=== PATIENT | male | born 1945 | race Caucasian/White ===

== ENCOUNTER 2016-12-08 04:39 | Emergency (ER) | payer MEDICARE, BC ==
--- NOTE | 2016-12-08 05:08 | ED ---
Martha Marley Edward, scribed for Camden Oneil MD on 12/08/16 at 0442 . Back Pain - HPI Summary HPI Summary: 71 y/o male presents to ED c/o L side back and L hip pain s/p fall, hitting his L side of back and hip on his arm chair. The fall occurred at 03:30 this morning. Pain intensity is at a 6/10 at triage. Pain is aggravated with deep breaths. Patient also hit his head but reports no LOC. Patient uses a cane and has trouble on his feet before the fall. Patient also fell getting out of his car two nights ago. PMHx DM, HTN. - History of Current Complaint Stated Complaint: FALL/BACK AND LEFT HIP PAIN Hx Obtained From: Patient Onset/Duration: Started Hours Ago, Still Present Back Pain Location: Is Discrete @ - L side and hip Severity Currently: Moderate Pain Intensity: 6 Pain Scale Used: 0-10 Numeric - Allergies/Home Medications Allergies/Adverse Reactions: Allergies Allergy/AdvReac Type Severity Reaction Status Date / Time Penicillins Allergy Unknown Verified 01/24/15 16:46 Reaction Details Lisinopril AdvReac Coughing Verified 01/24/15 16:46 PMH/Surg Hx/FS Hx/Imm Hx Previously Healthy: No Endocrine/Hematology History: Reports: Hx Diabetes Denies: Hx Thyroid Disease Cardiovascular History: Reports: Hx Hypertension - CONTROLLED WITH MEDS Denies: Hx Pacemaker/ICD Respiratory History: Denies: Hx Asthma - child, Hx Chronic Obstructive Pulmonary Disease (COPD) GI History: Denies: Hx Ulcer History: Denies: Hx Dialysis, Hx Renal Disease Sensory History: Denies: Hx Hearing Aid Neurological History: Reports: Other Neuro Impairments/Disorders - Mild Cognitive Impairment Psychiatric History: Denies: Hx Panic Disorder - Surgical History Surgery Procedure, Year, and Place: 2000 DETACHED RETINA AT [facility] - Immunization History Date of Tetanus Vaccine: w/in last 5 yrs per pt Infectious Disease History: Denies: Hx Clostridium Difficile, Hx Hepatitis, Hx Human Immunodeficiency Virus (HIV), Hx of Known/Suspected MRSA, Hx Shingles, Hx Tuberculosis, Hx Known/ Suspected VRE, Hx Known/Suspected VRSA, History Other Infectious Disease - Social History Occupation: Retired Lives: With Family Alcohol Use: Rare Hx Substance Use: No Substance Use Type: Reports: None Hx Tobacco Use: No Smoking Status (MU): Never Smoked Tobacco Review of Systems Constitutional: Negative Eyes: Negative ENT: Negative Cardiovascular: Negative Respiratory: Negative Gastrointestinal: Negative Genitourinary: Negative Positive: Arthralgia - L hip pain, Myalgia - back pain Skin: Negative Neurological: Negative - No LOC Psychological: Normal All Other Systems Reviewed And Are Negative: Yes Physical Exam Triage Information Reviewed: Yes Vital Signs On Initial Exam: Initial Vitals Temp Pulse Resp BP Pulse Ox 97.7 F 60 16 158/85 96 12/08/16 04:41 12/08/16 04:41 12/08/16 04:41 12/08/16 04:41 12/08/16 04:41 Vital Signs Reviewed: Yes Appearance: Positive: Well-Appearing, No Pain Distress Skin: Positive: Warm Head/Face: Positive: Normal Head/Face Inspection Eyes: Positive: EOMI, FREDDIE ENT: Positive: Hearing grossly normal Neck: Positive: Supple Respiratory/Lung Sounds: Positive: Clear to Auscultation, Breath Sounds Present , Other - mild lt lat cwt Cardiovascular: Positive: RRR Abdomen Description: Positive: Nontender, Soft Bowel Sounds: Positive: Present Musculoskeletal: Positive: Strength/ROM Intact, Other - mild lt hip pain with movement Neurological: Positive: Alert, Oriented to Person Place, Time Psychiatric: Positive: Affect/Mood Appropriate Diagnostics - Vital Signs Vital Signs Temp Pulse Resp BP Pulse Ox 12/08/16 04:48 97.7 F 66 16 158/85 96 12/08/16 04:41 97.7 F 60 16 158/85 96 - Laboratory Lab Statement: Any lab studies that have been ordered have been reviewed, and results considered in the medical decision making process. - Radiology Ribs w/ Chest XR Xray Interpretation: No Acute Changes - Negative for acute pathology Radiology Interpretation Completed By: ED Physician Hips/Pelvis XR Xray Interpretation: No Acute Changes - Negative for acute pathology Radiology Interpretation Completed By: ED Physician - CT BRAIN CT CT Interpretation: No Acute Changes - Negative for acute intracranial pathology CT Interpretation Completed By: ED Physician Re-Evaluation - Re-Evaluation 1 Re-Evaluation Time: 06:00 Change: Improved - results d/w pt Back Pain Course/Dx - Course Assessment/Plan: 71 y/o male presents to ED c/o L side back and L hip pain s/p fall, hitting his L side of back and hip on his arm chair. The fall occurred at 03:30 this morning. Patient also hit his head but reports no LOC. All imaging negative for acute pathology. Patient will be discharged home with f/u with PCP. - Diagnoses Provider Diagnoses: Multiple contusions Discharge - Discharge Plan Condition: Improved Disposition: HOME Patient Education Materials: Contusion in Adults (ED) Referrals: Mohinder Putnam MD [Primary Care Provider] - 3 Days (Please f/u in 2-3 days) The documentation as recorded by the Martha bright Edward accurately reflects the service I personally performed and the decisions made by , Camden Oneil MD.
[2016-12-08 06:07] VITALS: BP 166/85
--- NOTE | 2016-12-08 07:51 | RAD ---
HISTORY: Fall, left hip trauma COMPARISONS: None VIEWS: 3, Frontal view of the pelvis with frontal and frog-leg views of the left hip FINDINGS: BONE DENSITY: Normal. BONES: There is no displaced fracture. 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 ALIGNMENT: There is no dislocation. SOFT TISSUES: Unremarkable. OTHER FINDINGS: Degenerative changes noted of the spine IMPRESSION: NO RADIOGRAPHIC EVIDENCE FOR HIP FRACTURE. X-RAYS MAY BE NEGATIVE WITH NONDISPLACED HIP FRACTURE, IF THERE IS PERSISTENT CLINICAL CONCERN, RECOMMEND CONSIDERATION OF MRI. IN THE SETTING OF CONTRAINDICATION TO MRI OR LIMITATION IN EMERGENT ACCESS TO MRI, CT WOULD BE SUGGESTED.
--- NOTE | 2016-12-08 07:52 | RAD ---
HISTORY: Fall, left-sided pain COMPARISONS: None VIEWS: 9, Frontal view of the chest with frontal and oblique views of the left hemithorax FINDINGS: There is mild cortical irregularity of the distal left seventh rib. There is no appreciable pneumothorax. The lungs are clear. Degenerative changes are noted of the spine IMPRESSION: QUESTIONABLE NONDISPLACED FRACTURE OF THE LEFT SEVENTH RIB. NO PNEUMOTHORAX.
--- NOTE | 2016-12-08 07:54 | RAD ---
INDICATION: Trauma COMPARISON: MR the brain dated June 06, 2016 TECHNIQUE: Contiguous axial sections of the brain were obtained from the skull base to the vertex without contrast. FINDINGS: The ventricles, cisterns and sulci bilateral symmetrical and stable involutional changes. There is mild to moderate periventricular and subcortical white matter hypoattenuation most consistent with chronic microvascular disease. The morrison-white matter differentiation is adequately maintained and there is no sulcal effacement. No significant focal abnormality or mass effect is present. There is no evidence for intracranial hemorrhage. Surgical material is noted at the right globe consistent with the patient's reported history of retinal detachment surgery. No significant focal osseous abnormality is present. The mastoid air cells appear clear. Inspissated secretions are partially visualized in the left maxillary sinus. IMPRESSION: Chronic findings as described above without CT evidence of acute intracranial traumatic injury.
== END 2016-12-08 06:07 | disposition home or self-care (01) ==
LOC: ED 04:39
DX: S70.02XA Contusion of left hip, initial encounter (principal); S30.0XXA Contusion of lower back and pelvis, initial encounter; W18.09XA Striking against other object with subsequent fall, initial encounter; Y93.9 Activity, unspecified; Y92.9 Unspecified place or not applicable; E11.9 Type 2 diabetes mellitus without complications; I10 Essential (primary) hypertension; Z88.0 Allergy status to penicillin
CPT/HCPCS: 70450; 99282

== ENCOUNTER 2018-03-05 21:25 | Emergency (ER) | payer MEDICARE, BC, OTHER ==
[2018-03-05] MEDS ORDERED: Methocarbamol TAB* 500 MG PO ONE (22:42)
[2018-03-05] MEDS ORDERED: Ketorolac INJ* 30 MG/ML 1 ML VIAL IM ONE (22:42)
--- NOTE | 2018-03-05 23:11 | ED ---
Back Pain - HPI Summary HPI Summary: 72 year old female presents with back pain since this morning. He states that he has issues with balance and he stumbled and fell onto his back. no head injury or LOC. no other injury. He states that his lower back that is hurting. He states he also drove today he started having back spasms after driving to [place]. He denies any urinary symptoms. No fevers. denies any loss of bowel or bladder or saddle anasethesia. No pains in legs. No numbness or tingling. He ambulates with an unsteady gait which is normal for him due to his Parkinson's. - History of Current Complaint Chief Complaint: EDBackInjuryPain Stated Complaint: FALL Time Seen by Provider: 03/05/18 22:34 Pain Intensity: 0 - Allergies/Home Medications Allergies/Adverse Reactions: Allergies Allergy/AdvReac Type Severity Reaction Status Date / Time Penicillins Allergy Unknown Verified 03/05/18 21:37 Reaction Details PMH/Surg Hx/FS Hx/Imm Hx Endocrine/Hematology History: Reports: Hx Diabetes Denies: Hx Thyroid Disease Cardiovascular History: Reports: Hx Hypertension - CONTROLLED WITH MEDS Denies: Hx Pacemaker/ICD Respiratory History: Denies: Hx Asthma - child, Hx Chronic Obstructive Pulmonary Disease (COPD) GI History: Denies: Hx Ulcer History: Denies: Hx Dialysis, Hx Renal Disease Sensory History: Denies: Hx Hearing Aid Neurological History: Reports: Other Neuro Impairments/Disorders - Mild Cognitive Impairment Psychiatric History: Denies: Hx Panic Disorder - Surgical History Surgery Procedure, Year, and Place: 2000 DETACHED RETINA AT [facility] - Immunization History Date of Tetanus Vaccine: w/in last 5 yrs per pt Infectious Disease History: No Infectious Disease History: Denies: Hx Clostridium Difficile, Hx Hepatitis, Hx Human Immunodeficiency Virus (HIV), Hx of Known/Suspected MRSA, Hx Shingles, Hx Tuberculosis, Hx Known/ Suspected VRE, Hx Known/Suspected VRSA, History Other Infectious Disease, Traveled Outside the [place] in Last 30 Days - Family History Family History: NON CONTRIBUTORY - Social History Alcohol Use: Rare Hx Substance Use: No Substance Use Type: Reports: None Hx Tobacco Use: No Smoking Status (MU): Never Smoked Tobacco Review of Systems Negative: Fever Negative: Chest Pain Negative: Shortness Of Breath Positive: Myalgia - back pain All Other Systems Reviewed And Are Negative: Yes Physical Exam Triage Information Reviewed: Yes Vital Signs On Initial Exam: Initial Vitals Temp Pulse Resp BP Pulse Ox 98.9 F 67 18 175/82 94 03/05/18 21:31 03/05/18 21:31 03/05/18 21:31 03/05/18 21:31 03/05/18 21:31 Vital Signs Reviewed: Yes Appearance: Positive: Well-Appearing Skin: Positive: Warm, Dry Head/Face: Positive: Normal Head/Face Inspection Eyes: Positive: Normal, Conjunctiva Clear ENT: Positive: Pharynx normal Respiratory/Lung Sounds: Positive: Clear to Auscultation, Breath Sounds Present Cardiovascular: Positive: Normal, RRR Abdomen Description: Positive: Nontender, Soft Bowel Sounds: Positive: Present Musculoskeletal: Positive: Limited @ - back, Other - tenderness sides of back, neg SLR, good pulses, sensation grossly intact Neurological: Positive: Normal Psychiatric: Positive: Normal Diagnostics - Vital Signs Vital Signs Temp Pulse Resp BP Pulse Ox 03/05/18 21:31 98.9 F 67 18 175/82 94 - Laboratory Lab Statement: Any lab studies that have been ordered have been reviewed, and results considered in the medical decision making process. - CT back CT Interpretation: No Acute Changes - IMPRESSION: 1. 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 2. 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 3. Multilevel degenerative changes with spinal stenosis, greatest at L4-L5 and some neural foraminal stenosis, greatest on the right at L4-L5 and L5-S1. 4. No acute fracture or subluxation. CT Interpretation Completed By: Radiologist Re-Evaluation - Re-Evaluation First Eval Re-Evaluation Time: 23:59 Change: Improved Comment: feeling better Back Pain Course/Dx - Course Course Of Treatment: 72 year old female presents with back pain since this morning. He states that he has issues with balance and he stumbled and fell onto his back. no head injury or LOC. no other injury. He states that his lower back that is hurting. He states he also drove today he started having back spasms after driving to [place]. He denies any urinary symptoms. No fevers. denies any loss of bowel or bladder or saddle anasethesia. No pains in legs. No numbness or tingling. He ambulates with an unsteady gait which is normal for him due to his Parkinson's. On exam has tenderness over lower back. Negative straight leg raise. Neurovascular intact. CT shows no fx. gave muscle relaxer and toradol and pain improved. will discharge with muscle relaxer. patient understand and agrees with plan. - Diagnoses Differential Diagnosis/HQI/PQRI: Positive: Herniated Disc, Strain, Sprain Provider Diagnoses: Fall Discharge - Sign-Out/Discharge Documenting (check all that apply): Patient Departure - Discharge Plan Condition: Good Disposition: HOME Prescriptions: Methocarbamol TAB* [Robaxin 500 MG TAB*] 500 mg PO TID PRN #9 tab PRN Reason: Pain Patient Education Materials: Back Pain (ED) Referrals: Mohinder Putnam MD [Primary Care Provider] - Additional Instructions: Take muscle relaxers up to three times a day as needed, can make drowsy Use Tylenol for pain every 6 hours ice/heat area, move as much as possible Follow up with primary within 5 days Return to ED if develop any new or worsening symptoms. - Billing Disposition and Condition Condition: GOOD Disposition: Home
--- NOTE | 2018-03-05 23:36 | RAD ---
EXAM: CT Lumbar Spine Without Intravenous Contrast EXAM DATE/TIME: 03/05/2018 11:05 PM CLINICAL HISTORY: 72 years old, male; Injury or trauma; Fall; Initial encounter; Sprain or strain, lumbar ligaments; Additional info: Lower back pain TECHNIQUE: Axial computed tomography images of the lumbar spine without intravenous contrast. All CT scans at this facility use at least one of these dose optimization techniques: automated exposure control; mA and/or kV adjustment per patient size (includes targeted exams where dose is matched to clinical indication); or iterative reconstruction. Coronal and sagittal reformatted images were created and reviewed. COMPARISON: No relevant prior studies available. FINDINGS: Vertebrae: Flowing osteophytes from the lower thoracic spine to the L3 level consistent with ankylosis. Minimal dextroscoliosis centered at L1. No acute fracture or compression. Decreased size of L5 overall which appears to be developmental. Absent ribs at T12. Soft tissues: Unremarkable. Kidneys and ureters: There is a right renal cyst measuring 14 mm. DISCS/SPINAL CANAL/NEURAL FORAMINA: L1-L2: Ankylosis with no significant disc bulge or protrusion. There is minimal facet arthropathy or hypertrophic change with no significant spinal or foraminal stenosis. L2-L3: No significant disc bulge. There is ankylosis and minimal hypertrophic change of the facets. There is low normal size of the spinal canal and adequate size of the neural foramen. L3-L4: Degenerative disc change with vacuum phenomenon and slight interspace narrowing. There is minimal diffuse bulge with near loss of posterior concavity. There is minimal facet arthropathy and mild secondary spinal stenosis. The neural foramina are within normal limits. L4-L5: Slight interspace narrowing with degenerative vacuum phenomenon and mild posterior protrusion with slight caudal central extrusion. There is mild facet arthropathy, primarily hypertrophy of ligamentum flavum with moderate secondary spinal stenosis. There is moderate right neural foraminal stenosis primarily related to posterolateral spurring. L5-S1: Interspace narrowing with some sacralization of L5. There is minimal facet arthropathy with moderate right neural foraminal stenosis. IMPRESSION: 1. 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 2. 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 3. Multilevel degenerative changes with spinal stenosis, greatest at L4-L5 and some neural foraminal stenosis, greatest on the right at L4-L5 and L5-S1. 4. No acute fracture or subluxation. To contact [facility] with a general question: Operations Center - [phone] For direct physician to physician contact: Physician Hotline - [phone] [facility] ([facility] Facility ID #[id number])
[2018-03-06 00:07] VITALS: BP 166/87
== END 2018-03-06 00:07 | disposition home or self-care (01) ==
LOC: ED 21:25
DX: M54.5 Low back pain (principal); M43.25 Fusion of spine, thoracolumbar region; M51.36 Other intervertebral disc degeneration, lumbar region; I10 Essential (primary) hypertension; Z88.0 Allergy status to penicillin
CPT/HCPCS: 72131; 96372; 99283; A9270-GY; J1885

== ENCOUNTER 2018-05-20 11:14 | Inpatient (IN) | payer MEDICARE, BC ==
--- OUTSIDE RECORDS SUMMARY | 2018-05-20 11:51 | XMS REPORT | Continuity of Care Document ---
:1945 External Reference #:[id number] Author Name Zohra Camarillo Care Team Providers Name Role Phone Chon Crenshaw MD Care Team Information Auto Service Advisor Unavailable Mohinder Putnam MD Primary Care Physician Unavailable Payers Type Date Identification Numbers Payment Provider Subscriber Effective: 2012 Policy Number: [id number] Medicare Shane Anderson PayID: [id number] [address] [place] [address] Policy Number: [id number] [facility] Shane Anderson PayID: [id number] [address] [place] [address] Advance Directives Description No Information Available Problems Date Description Provider Status Onset: 01/25/2015 Unsteady gait Yvrose Salazar M.D. Active Onset: 01/25/2015 Mild cognitive disorder Yvrose Salazar M.D. 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 Active Onset: 10/18/2015 Glenoid labrum tear Ryland Burks M.D. 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 Active Onset: 10/30/2017 Parkinson's disease Scot Castillo M.D. 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 Right-handed ETOH Use Drinks Alcoholic Glass of wine Beverages Rarely weekly Tobacco Use Start: Unknown Patient has never smoked Recreational Drug Use Denies Drug Use Smoking Status Reviewed: 05/17/18 Patient has never smoked Exercise Type/Frequency Exercises regularly Allergies, Adverse Reactions, Alerts Date Description Reaction Status Severity Comments 05/31/2013 Penicillin Active Medications Medication Date Status Form Strength Qnty SIG Indications Ordering Provider Vitamin B-12 / Active Tablets 500mcg 1 po qd Unknown 0000 Atorvastatin / Active Tablets 40mg 90tabs 1/2 tab po Unknown Calcium 0000 qd Metoprolol / Active Tablets 25mg 100tab 1 tab po Unknown Tartrate 0000 s bid Losartan / Active Tablets 50mg take 1 Unknown Potassium 0000 tablet by mouth once daily Metformin HCL / Active Tablets 1000mg 1 by mouth Unknown 0000 twice a day Carbidopa-Levo / Active Tablets 25-100mg 180tab 2 by mouth Christopher dopa 0000 s stuart Castillo M.D. times a day Viagra / Active Tablets 50mg 1 by mouth Unknown 0000 as needed Aspir-81 / Active Tablets 81mg 1 by mouth Unknown 0000 DR every day Donepezil HCL 09/13/ Hx Tablets 10mg 90tabs 1 po Davey SSharda 2013 - every day Ellie 07/24/ M.DSharda 2015 Donepezil HCL 05/31/ Hx Tablets 5mg 60tabs 1-2 tabs Yvrose Jiménez 2013 - by mouth Marie 09/13/ every day M.D. 2013 as directed Metformin HCL / Hx Tablets 500mg 1 po bid Unknown 0000 - 2014 Lisinopril / Hx Tablets 20mg 1 po qd Unknown 0000 - [address] / Hx Tablets 81mg 1 po qd Unknown 0000 - DR 2017 Medications Administered in Office Medication Date Status Form Strength Qnty SIG Indications Ordering Provider Depomedrol Administered Injection Ryland 40MG 016 Yolande Burks Immunizations Description No Information Available Vital Signs Date Vital Result Comment 05/17/2018 9:12am Height 73 inches 6'1" Weight 205.00 lb Heart Rate 60 /min BP Systolic 136 mmHg BP Diastolic 78 mmHg Respiratory Rate 16 /min BMI (Body Mass Index) 27.0 kg/m2 02/04/2018 10:28am Height 73 inches 6'1" Weight 203.00 lb Heart Rate 54 /min BP Systolic 118 mmHg BP Diastolic 70 mmHg Respiratory Rate 17 /min BMI (Body Mass Index) 26.8 kg/m2 11/23/2017 2:22pm Height 73 inches 6'1" Weight 202.00 lb Heart Rate 64 /min BP Systolic 122 mmHg BP Diastolic 74 mmHg Respiratory Rate 16 /min BMI (Body Mass Index) 26.6 kg/m2 10/30/2017 10:30am Height 73 inches 6'1" Weight 206.38 lb Heart Rate 68 /min BP Systolic Sitting 162 mmHg BP Diastolic Sitting 90 mmHg Respiratory Rate 16 /min BMI (Body Mass Index) 27.2 kg/m2 04/23/2017 2:55pm Height 73 inches 6'1" Weight 216.00 lb Heart Rate 58 /min BP Systolic Sitting 136 mmHg BP Diastolic Sitting 72 mmHg Respiratory Rate 16 /min BMI (Body Mass Index) 28.5 kg/m2 12/18/2016 3:54pm Height 73 inches 6'1" Weight 215.00 lb Heart Rate 68 /min BP Systolic Sitting 130 mmHg BP Diastolic Sitting 72 mmHg Respiratory Rate 14 /min BMI (Body Mass Index) 28.4 kg/m2 06/04/2016 3:38pm Height 73 inches 6'1" Weight 217.00 lb Heart Rate 64 /min BP Systolic Sitting 134 mmHg BP Diastolic Sitting 82 mmHg Respiratory Rate 14 /min BMI (Body Mass Index) 28.6 kg/m2 12/13/2015 10:49am Height 73 inches 6'1" Weight 215.00 lb Heart Rate 60 /min BP Systolic Sitting 122 mmHg BP Diastolic Sitting 70 mmHg Respiratory Rate 14 /min BMI (Body Mass Index) 28.4 kg/m2 10/18/2015 10:18am Height 73 inches 6'1" Weight 215.00 lb BMI (Body Mass Index) 28.4 kg/m2 07/26/2015 9:58am Height 73 inches 6'1" Heart Rate 64 /min BP Systolic Sitting 130 mmHg BP Diastolic Sitting 74 mmHg Respiratory Rate 16 /min 01/25/2015 9:47am Height 73 inches 6'1" Weight 215.00 lb Heart Rate 52 /min BP Systolic Sitting 122 mmHg BP Diastolic Sitting 82 mmHg Respiratory Rate 14 /min BMI (Body Mass Index) 28.4 kg/m2 07/28/2014 11:36am Height 73 inches 6'1" Weight 211.00 lb Heart Rate 64 /min BP Systolic Sitting 116 mmHg BP Diastolic Sitting 72 mmHg Respiratory Rate 12 /min BMI (Body Mass Index) 27.8 kg/m2 01/24/2014 10:59am Height 73 inches 6'1" Weight 211.00 lb Heart Rate 60 /min BP Systolic Sitting 150 mmHg BP Diastolic Sitting 76 mmHg Respiratory Rate 16 /min BMI (Body Mass Index) 27.8 kg/m2 09/22/2013 10:17am Height 73 inches 6'1" Weight 214.00 lb Heart Rate 60 /min BP Systolic Sitting 130 mmHg BP Diastolic Sitting 78 mmHg Respiratory Rate 16 /min BMI (Body Mass Index) 28.2 kg/m2 05/31/2013 10:03am Heart Rate 60 /min BP Systolic Sitting 146 mmHg BP Diastolic Sitting 84 mmHg Respiratory Rate 16 /min Results Test Date Facility Test Result H/L Range Note Laboratory test 12/06/2013 [facility] CSF Glucose 80 mg/dL High 40-70 1, [address] [place] [address] [phone] CSF Total Protein 63 mg/dL High 15-45 3 Body Fluid 12/06/2013 [facility] Body Fluid Cerebral Spinal N Cell Count [address] [place] [address] [phone] Body Fluid Appearance Clear N Body Fluid Color Colorless N CSF Tube # 4 N Body Fluid Volume 4.25 mL N Body Fluid WBC 5 N Body Fluid RBC 1 N Body Fluid Lymph 89 N Body Fluid Warren 11 N Body Fluid Total Cells Counted 100 N Fluid Reviewed By MD (SEE NOTE) N 4 CSF Lyme Disease 12/06/2013 [facility] CSF Lyme Disease IgG <1: 4 N Igg/Igm AB [address] [place] [address] [phone] CSF Lyme Disease IgM Antibody <1:1 N CSF Lyme Disease Interpretat See Comment N 5 Laboratory test 12/06/2013 [facility] Reference Lab See Comment N [address] [place] [address] [phone] Multiple 12/06/2013 [facility] CSF Oligoclonal 0 bands N Sclerosis [address] [place] [place] [address] [phone] Serum Oligoclonal Bands 0 bands N Oligoclonal Proteins Interpret 0 bands N <4 7 CSF Immunoglobulin G Index 0.41 N <=0.85 CSF Immunoglobulin G 4.0 mg/dL N <=8.1 CSF Albumin 35.9 mg/dL Abnormal <=27.0 CSF IgG/Albumin Ratio 0.11 N <=0.21 CSF Immunoglobulin G Synthesis 0.00 mg/24h N <=12 Serum Immunoglobulin G 1010 mg/dL N 767 - 1590 Albumin, Serum 3680 mg/dL N 8 Serum IgG/Albumin Ratio 0.27 N <=0.40 9 CBC Auto Diff 09/24/2013 [facility] White Blood 9.4 10^3/uL N 4.8-10.[address] [place] [address] [phone] Red Blood Count 5.12 10^6/uL N 4.0-5.4 Hemoglobin 15.2 g/dL N 14.0-18.0 Hematocrit 46 % N 42-52 Mean Corpuscular Volume 89 fL N 80-94 Mean Corpuscular Hemoglobin 30 pg N 27-31 Mean Corpuscular HGB Conc 33 g/dL N 31-36 Red Cell Distribution Width 14 % N 10.5-15 Platelet Count 286 10^3/uL N 150-450 Mean Platelet Volume 10 um3 N 7.4-10.4 Abs Neutrophils 6.3 10^3/uL N 1.5-7.7 Abs Lymphocytes 2.0 10^3/uL N 1.0-4.8 Abs Monocytes 0.6 10^3/uL N 0-0.8 Abs Eosinophils 0.5 10^3/uL N 0-0.6 Abs Basophils 0.1 10^3/uL N 0-0.2 Abs Nucleated RBC 0 10^3/uL N Granulocyte % 66.5 % N 38-83 Lymphocyte % 21.4 % Low 25-47 Monocyte % 6.1 % N 1-9 Eosinophil % 5.1 % N 0-6 Basophil % 0.9 % N 0-2 Nucleated Red Blood Cells % 0 N Comp Metabolic Panel 09/24/2013 [facility] Sodium 136 mmol/L N 133-[address] [place] [address] [phone] Potassium 4.4 mmol/L N 3.7-5.6 Chloride 104 mmol/L N 101-111 Co2 Carbon Dioxide 23 mmol/L N 22-32 Anion Gap 9 mmol/L N 2-11 Glucose 228 mg/dL High 70-100 Blood Urea Nitrogen 20 mg/dL N 6-24 Creatinine 1.28 mg/dL High 0.67-1.17 BUN/Creatinine Ratio 15.6 N 8-20 Calcium 9.0 mg/dL N 8.6-10.3 Total Protein 6.9 g/dL N 6.4-8.9 Albumin 4.1 g/dL N 3.2-5.2 Globulin 2.8 g/dL N 2-4 Albumin/Globulin Ratio 1.5 N 1-3 Total Bilirubin 0.60 mg/dL N 0.2-1.0 Alkaline Phosphatase 60 U/L N 34-104 Alt 19 U/L N 7-52 Ast 15 U/L N 13-39 Egfr Non- 56.1 N >60 Egfr 72.1 N >60 10 Laboratory 09/24/2013 [facility] Lyme Disease Negative N Negative 11 test finding [address] [place] [address] [phone] Laboratory 06/01/2013 [facility] C Reactive 0.6 mg/dL High Less than test finding [address] Protein 0.5 [place] [address] [phone] Erythrocyte Sed Rate 10 mm/Hr 0-40 Arleth (Anti-Nuclear AB) Screen Negative Negative Homocysteine 15 mcmol/L Abnormal 12 Methylmalonic Acid 0.15 nmol/mL <=0.40 13 Ssa/SSB Abs Igg 06/01/2013 [facility] SS-A/Ro Antibody <0.2 U [address] [place] [address] [phone] SS-B/La Antibody <0.2 U 15 1 TUBE 2 2 TUBE 2 3 TUBE 2 4 Slide and differential reviewed. No bacteria, blasts or other malignant cells seen. REVIEWED BY LUCILLE ROMERO MD 5 ANTIBODY NOT DETECTED REFERENCE RANGES: IgG <1:4 IgM <1:1 Diagnosis of infections of the central nervous system can be done by demonstrating the presence of intrathecally-produced specific antibody. However, interpreting results is complicated by low antibody levels found in CSF, passive transfer of antibody from blood, and contamination via bloody taps. The interpretation of CSF results must consider CSF-serum antibody ratios to the infectious agent. However, demonstration of class specific antibody IgM in CSF may be diagnostic. The intrathecal synthesis of Lyme disease antibody is most accurately measured by performing the Lyme Disease Antibody Index for INTERNATIONAL ACCOUNT MANAGER Infection. This assay was developed and its performance characteristics have been determined by [facility]. It has not been cleared or approved by the U.S. Food and Drug Administration. The FDA has determined that such clearance or approval is not necessary. Performance characteristics refer to the analytical performance of the test. Test Performed by: [facility], [employer]. [address] [place] [phone] 6 Test Result Flag Unit RefValue [facility] Phospho-Tau/Total- See Comment Tau/Ab42 Testing is complete. Final report has been sent to the referring laboratory. Test Performed by: [facility] [address] [place] [id number] 7 The oligoclonal band assay detected 3 or less IgG bands in the CSF, which are not present in the serum. This is a Negative result. 8 -- REFERENCE VALUE -- 3200 - 4800 9 Test Performed by: [address] [address] Spring Tester: Cheng Madera III, M.D. 10 Because ethnic data is not always readily available, this report includes an eGFR for both -Americans and non- Americans. The National Kidney Disease Education Program (NKDEP) does not endorse the use of the MDRD equation for patients that are not between the ages of 18 and 70, are , have extremes of body size, muscle mass, or nutritional status, or are non- or non-. According to the National Kidney Foundation, irrespective of diagnosis, the stage of the disease is based on the level of kidney function: Stage Description GFR(mL/min/1.73 m(2)) 1 Kidney damage with normal or decreased GFR 90 2 Kidney damage with mild decrease in GFR 60-89 3 Moderate decrease in GFR 30-59 4 Severe decrease in GFR 15-29 5 Kidney failure <15 (or dialysis) 11 Serologic response to B. burgdorferi infection is not detected, but cannot rule out early infection during which low or undetectable antibody levels to B. burgdorferi may be present. If clinically indicated, a new serum specimen should be submitted in 7-14 days. Test Performed by: [place] [address] Spring Tester: Cheng Madera III, M.D. 12 The homocysteine concentration is elevated in this sample. Increased homocysteine has been associated with an increased risk of cardiovascular disease, cerebrovascular disease, peripheral arterial disease and thrombosis. Vitamin deficiencies (B6, B12 and folic acid) may also cause an increased homocysteine concentration. Inborn errors of methionine metabolism are a potential, but less likely, possibility for hyperhomocysteinemia. Consider plasma or serum methylmalonic acid analysis to rule out vitamin B12 deficiency. -- REFERENCE VALUE -- <=13 (Fasting) Test Performed by: [place] [address] Spring Tester: Cheng Madera III, M.D. 13 Test Performed by: [place] [address] Spring Tester: Cheng Madera III, M.D. 14 -- REFERENCE VALUE -- <1.0 (Negative) 15 -- REFERENCE VALUE -- <1.0 (Negative) Test Performed by: [place] [address] Spring Tester: Cheng Madera III, M.D. Procedures Date Code Description Status 10/18/2015 41177 Inject/Drain Joint/Bursa Major W/O US Completed Encounters Type Date Location Provider Dx Diagnosis Office Visit 02/04/2018 Elham Herring Parkinson' s 10:15a [facility] disease G24.8 Other dystonia R26.81 Unsteadiness on feet Office Visit 11/23/2017 2:45p Elham Herring Parkinson's [facility] disease G24.8 Other dystonia Office Visit 10/30/2017 10:30a Elham Herring [facility] disease R26.81 Unsteadiness on feet R41.3 Other amnesia Office Visit 04/23/2017 Meenakshi Jiménez R26.81 Unsteadiness on 3:00p Mj Salazar M.D. feet [facility] G20 Parkinson's disease R41.3 Other amnesia Office Visit 12/18/2016 Meenakshi Jiménez G23.1 Progressive 3:45p Mj Salazar M.D. supranuclear [facility] ophthalmoplegia G31.84 Mild cognitive impairment, so stated R26.81 Unsteadiness on feet Office Visit 06/04/2016 Meenakshi Jiménez G23.1 Progressive 3:45p Mj Salazar M.D. supranuclear [facility] ophthalmoplegia G31.84 Mild cognitive impairment, so stated Office Visit 12/13/2015 Meenakshi Jiménez G23.1 Progressive 10:45a Mj Salazar M.D. supranuclear [facility] ophthalmoplegia G31.84 Mild cognitive impairment, so stated Office Visit 10/18/2015 Orthopedic Ryland M75.42 Impingement syndrome 10:00a [facility] Burks of left shoulder C.M.A. Office Visit 07/26/2015 Meenakshi Jiménez G23.1 Progressive 9:45a Mj Salazar M.D. 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 Impairment So Stated Office Visit 09/22/2013 10:15a Meenakshi Jiménez 331.83 Mild Cognitive [facility] M.D. Impairment So Stated 781.2 Gait Abnormality 794.09 Function Study Other Abnormal Brain & Central Nervous System Office Visit 05/31/2013 10:00a Meenakshi Jiménez 781.2 Gait Abnormality [facility].D. 331.83 Mild Cognitive Impairment So Stated Plan of Treatment Future Appointment(s):08/26/2018 9:15 am - Scot Castillo M.D. at [facility]05/17/2018 - Scot Castillo M.D.G20 Parkinson's diseaseNew Therapy:Physical TherapyFollow up:Follow up in 3 njtoqcX74.8 Other [id number] Unsteadiness on feet
[2018-05-20] MEDS ORDERED: NS 0.9% 1000 ML* 1,000 ML IV ONE (12:08)
[2018-05-20 12:40] LABS: ABS Basophils 0 10^3/ul (0-0.2); ABS Eosinophils 0 10^3/ul (0-0.6); ABS Lymphocytes 0.5 10^3/ul (1.0-4.8); ABS Monocytes 1.1 10^3/ul (0-0.8); ABS Neutrophils 4.8 10^3/ul (1.5-7.7); ABS Nucleated RBC 0 10^3/ul; Eosinophil % 0.5 %; Hematocrit 42 % (42-52); Hemoglobin 13.9 g/dl (14.0-18.0); Lymphocyte % 7.5 %; Mean Corpuscular HGB Conc 33 g/dl (31-36); Mean Corpuscular Hemoglobin 30 pg (27-31); Mean Corpuscular Volume 91 fL (80-94); Mean Platelet Volume 8.6 fL (7.4-10.4); Nucleated Red Blood Cells % 0; Platelet Count 266 10^3/ul (150-450); Red Blood Count 4.61 10^6/ul (4.00-5.40); Red Cell Distribution Width 13 % (10.5-15); White Blood Count 6.4 10^3/ul (3.5-10.8)
[2018-05-20 12:51] LABS: Activated Partial Thrombo Time 32.3 seconds (26.0-36.3); INR 1.03 (0.77-1.02)
[2018-05-20 12:59] LABS: Albumin 4.1 g/dL (3.2-5.2); Albumin/Globulin Ratio 1.5 (1-3); BUN/Creatinine Ratio 12.3 (8-20); C Reactive Protein 10.6 mg/L (<8.01); Calcium 8.6 mg/dL (8.6-10.3); EGFR Non-African American 41.9 (>60); Globulin 2.8 g/dL (2-4); Potassium 4.6 mmol/L (3.5-5.0); Total Bilirubin 0.4 mg/dL (0.2-1.0); Total Protein 6.9 g/dL (6.4-8.9)
[2018-05-20 13:28] LABS: Urine Appearance Clear; Urine Bacteria Absent (Absent); Urine Bilirubin Negative (Negative); Urine Blood 1+ (Negative); Urine Color Yellow; Urine Glucose Negative (Negative); Urine Ketones Negative (Negative); Urine Nitrite Negative (Negative); Urine Protein 1+(30 mg/dL) (Negative); Urine Red Blood Cell Trace(0-2/hpf) (Absent); Urine Urobilinogen Negative (Negative); Urine White Blood Cell Absent (Absent)
[2018-05-20 13:34] LABS: Magnesium 1.8 mg/dL (1.9-2.7)
--- NOTE | 2018-05-20 14:27 | ED ---
Complex/Multi-Sys Presentation - HPI Summary HPI Summary: 72-year-old male presents with weakness today. He says that has been having a cough and upper respiratory symptoms. Has been felt feverish at home. He states that is a lot slower than normal. states has been having a very unsteady gait. Just feels very weak and lethargic. Appetite has been normal. No chest pain or shortness of breath. Denies any bowel pain. Denies any headache. No dizziness. No change in vision. Has history of Parkinson's. No history of any respiratory illnesses. - History Of Current Complaint Chief Complaint: EDWeakness Time Seen by Provider: 05/20/18 11:59 - Allergies/Home Medications Allergies/Adverse Reactions: Allergies Allergy/AdvReac Type Severity Reaction Status Date / Time Penicillins Allergy Unknown Verified 03/05/18 21:37 Reaction Details Home Medications: Home Medications Losartan TAB* [Cozaar TAB*] 50 mg PO DAILY 05/20/18 [History Confirmed 05/20/18] Metoprolol Tartrate TAB* [Lopressor TAB*] 25 mg PO BID 05/20/18 [History Confirmed 05/20/18] metFORMIN* [Glucophage 1000 MG TAB *] 1,000 mg PO BID 05/20/18 [History Confirmed 05/20/18] PMH/Surg Hx/FS Hx/Imm Hx Endocrine/Hematology History: Reports: Hx Diabetes Denies: Hx Thyroid Disease Cardiovascular History: Reports: Hx Hypertension - CONTROLLED WITH MEDS Denies: Hx Pacemaker/ICD Respiratory History: Denies: Hx Asthma - child, Hx Chronic Obstructive Pulmonary Disease (COPD) GI History: Denies: Hx Ulcer History: Denies: Hx Dialysis, Hx Renal Disease Sensory History: Denies: Hx Hearing Aid Neurological History: Reports: Other Neuro Impairments/Disorders - Mild Cognitive Impairment Psychiatric History: Denies: Hx Panic Disorder - Surgical History Surgery Procedure, Year, and Place: 2000 DETACHED RETINA AT [facility] - Immunization History Date of Tetanus Vaccine: w/in last 5 yrs per pt Infectious Disease History: No Infectious Disease History: Denies: Hx Clostridium Difficile, Hx Hepatitis, Hx Human Immunodeficiency Virus (HIV), Hx of Known/Suspected MRSA, Hx Shingles, Hx Tuberculosis, Hx Known/ Suspected VRE, Hx Known/Suspected VRSA, History Other Infectious Disease, Traveled Outside the [place] in Last 30 Days - Family History Family History: NON CONTRIBUTORY - Social History Alcohol Use: Rare Hx Substance Use: No Substance Use Type: Reports: None Hx Tobacco Use: No Smoking Status (MU): Never Smoked Tobacco Review of Systems Positive: Fever, Chills Negative: Chest Pain Positive: Cough. Negative: Shortness Of Breath Positive: Weakness All Other Systems Reviewed And Are Negative: Yes Physical Exam Vital Signs On Initial Exam: Initial Vitals Temp Pulse Resp BP Pulse Ox 99.5 F 79 21 157/85 94 05/20/18 11:25 05/20/18 11:25 05/20/18 11:25 05/20/18 11:25 05/20/18 11:25 Diagnostics - Vital Signs Vital Signs Temp Pulse Resp BP Pulse Ox 05/20/18 12:41 99.6 F 05/20/18 11:55 74 24 151/85 93 05/20/18 11:25 99.5 F 79 21 157/85 94 - Laboratory Lab Results: Lab Results 05/20/18 05/20/18 05/20/18 Range/Units 12:32 12:32 12:32 WBC 6.4 (3.5-10.8) 10^3/ul RBC 4.61 (4.00-5.40) 10^6/ul Hgb 13.9 L (14.0-18.0) g/dl Hct 42 (42-52) % MCV 91 (80-94) fL MCH 30 (27-31) pg MCHC 33 (31-36) g/dl RDW 13 (10.5-15) % Plt Count 266 (150-450) 10^3/ul MPV 8.6 (7.4-10.4) fL Neut % (Auto) 73.9 % Lymph % (Auto) 7.5 % [place] % (Auto) 17.6 % Eos % (Auto) 0.5 % Baso % (Auto) 0.5 % Absolute Neuts (auto) 4.8 (1.5-7.7) 10^3/ul Absolute Lymphs (auto) 0.5 L (1.0-4.8) 10^3/ul Absolute Monos (auto) 1.1 H (0-0.8) 10^3/ul Absolute Eos (auto) 0 (0-0.6) 10^3/ul Absolute Basos (auto) 0 (0-0.2) 10^3/ul Absolute Nucleated RBC 0 10^3/ul Nucleated RBC % 0 INR (Anticoag Therapy) 1.03 H (0.77-1.02) APTT 32.3 (26.0-36.3) seconds Sodium 134 L (135-145) mmol/L Potassium 4.6 (3.5-5.0) mmol/L Chloride 102 (101-111) mmol/L Carbon Dioxide 25 (22-32) mmol/L Anion Gap 7 (2-11) mmol/L BUN 20 (6-24) mg/dL Creatinine 1.63 H (0.67-1.17) mg/dL Est GFR ( Amer) 50.7 (>60) Est GFR (Non-Af Amer) 41.9 (>60) BUN/Creatinine Ratio 12.3 (8-20) Glucose 135 H (70-100) mg/dL Lactic Acid (0.5-2.0) mmol/L Calcium 8.6 (8.6-10.3) mg/dL Magnesium 1.8 L (1.9-2.7) mg/dL Total Bilirubin 0.40 (0.2-1.0) mg/dL AST 13 (13-39) U/L ALT 16 (7-52) U/L Alkaline Phosphatase 61 (34-104) U/L Total Creatine Kinase 61 (10-223) U/L Troponin I 0.01 (<0.04) ng/mL C-Reactive Protein 10.60 H (<8.01) mg/L B-Natriuretic Peptide (<=100) pg/mL Total Protein 6.9 (6.4-8.9) g/dL Albumin 4.1 (3.2-5.2) g/dL Globulin 2.8 (2-4) g/dL Albumin/Globulin Ratio 1.5 (1-3) Urine Color Urine Appearance Urine pH (5-9) Ur Specific [place] (1.010-1.030) Urine Protein (Negative) Urine Ketones (Negative) Urine Blood (Negative) Urine Nitrate (Negative) Urine Bilirubin (Negative) Urine Urobilinogen (Negative) Ur Leukocyte Esterase (Negative) Urine WBC (Auto) (Absent) Urine RBC (Auto) (Absent) Ur Squamous Epith Cells (Absent) Urine Bacteria (Absent) Urine Glucose (Negative) Influenza A (Rapid) (Negative) Influenza B (Rapid) (Negative) 05/20/18 05/20/18 05/20/18 Range/Units 12:32 12:33 12:53 WBC (3.5-10.8) 10^3/ul RBC (4.00-5.40) 10^6/ul Hgb (14.0-18.0) g/dl Hct (42-52) % MCV (80-94) fL MCH (27-31) pg MCHC (31-36) g/dl RDW (10.5-15) % Plt Count (150-450) 10^3/ul MPV (7.4-10.4) fL Neut % (Auto) % Lymph % (Auto) % [place] % (Auto) % Eos % (Auto) % Baso % (Auto) % Absolute Neuts (auto) (1.5-7.7) 10^3/ul Absolute Lymphs (auto) (1.0-4.8) 10^3/ul Absolute Monos (auto) (0-0.8) 10^3/ul Absolute Eos (auto) (0-0.6) 10^3/ul Absolute Basos (auto) (0-0.2) 10^3/ul Absolute Nucleated RBC 10^3/ul Nucleated RBC % INR (Anticoag Therapy) (0.77-1.02) APTT (26.0-36.3) seconds Sodium (135-145) mmol/L Potassium (3.5-5.0) mmol/L Chloride (101-111) mmol/L Carbon Dioxide (22-32) mmol/L Anion Gap (2-11) mmol/L BUN (6-24) mg/dL Creatinine (0.67-1.17) mg/dL Est GFR ( Amer) (>60) Est GFR (Non-Af Amer) (>60) BUN/Creatinine Ratio (8-20) Glucose (70-100) mg/dL Lactic Acid 2.3 H* (0.5-2.0) mmol/L Calcium (8.6-10.3) mg/dL Magnesium (1.9-2.7) mg/dL Total Bilirubin (0.2-1.0) mg/dL AST (13-39) U/L ALT (7-52) U/L Alkaline Phosphatase (34-104) U/L Total Creatine Kinase (10-223) U/L Troponin I (<0.04) ng/mL C-Reactive Protein (<8.01) mg/L B-Natriuretic Peptide 135 H (<=100) pg/mL Total Protein (6.4-8.9) g/dL Albumin (3.2-5.2) g/dL Globulin (2-4) g/dL Albumin/Globulin Ratio (1-3) Urine Color Urine Appearance Urine pH (5-9) Ur Specific [place] (1.010-1.030) Urine Protein (Negative) Urine Ketones (Negative) Urine Blood (Negative) Urine Nitrate (Negative) Urine Bilirubin (Negative) Urine Urobilinogen (Negative) Ur Leukocyte Esterase (Negative) Urine WBC (Auto) (Absent) Urine RBC (Auto) (Absent) Ur Squamous Epith Cells (Absent) Urine Bacteria (Absent) Urine Glucose (Negative) Influenza A (Rapid) Negative (Negative) Influenza B (Rapid) Negative (Negative) 05/20/18 Range/Units 13:15 WBC (3.5-10.8) 10^3/ul RBC (4.00-5.40) 10^6/ul Hgb (14.0-18.0) g/dl Hct (42-52) % MCV (80-94) fL MCH (27-31) pg MCHC (31-36) g/dl RDW (10.5-15) % Plt Count (150-450) 10^3/ul MPV (7.4-10.4) fL Neut % (Auto) % Lymph % (Auto) % [place] % (Auto) % Eos % (Auto) % Baso % (Auto) % Absolute Neuts (auto) (1.5-7.7) 10^3/ul Absolute Lymphs (auto) (1.0-4.8) 10^3/ul Absolute Monos (auto) (0-0.8) 10^3/ul Absolute Eos (auto) (0-0.6) 10^3/ul Absolute Basos (auto) (0-0.2) 10^3/ul Absolute Nucleated RBC 10^3/ul Nucleated RBC % INR (Anticoag Therapy) (0.77-1.02) APTT (26.0-36.3) seconds Sodium (135-145) mmol/L Potassium (3.5-5.0) mmol/L Chloride (101-111) mmol/L Carbon Dioxide (22-32) mmol/L Anion Gap (2-11) mmol/L BUN (6-24) mg/dL Creatinine (0.67-1.17) mg/dL Est GFR ( Amer) (>60) Est GFR (Non-Af Amer) (>60) BUN/Creatinine Ratio (8-20) Glucose (70-100) mg/dL Lactic Acid (0.5-2.0) mmol/L Calcium (8.6-10.3) mg/dL Magnesium (1.9-2.7) mg/dL Total Bilirubin (0.2-1.0) mg/dL AST (13-39) U/L ALT (7-52) U/L Alkaline Phosphatase (34-104) U/L Total Creatine Kinase (10-223) U/L Troponin I (<0.04) ng/mL C-Reactive Protein (<8.01) mg/L B-Natriuretic Peptide (<=100) pg/mL Total Protein (6.4-8.9) g/dL Albumin (3.2-5.2) g/dL Globulin (2-4) g/dL Albumin/Globulin Ratio (1-3) Urine Color Yellow Urine Appearance Clear Urine pH 6.0 (5-9) Ur Specific [place] 1.010 (1.010-1.030) Urine Protein 1+(30 mg/dl) A (Negative) Urine Ketones Negative (Negative) Urine Blood 1+ A (Negative) Urine Nitrate Negative (Negative) Urine Bilirubin Negative (Negative) Urine Urobilinogen Negative (Negative) Ur Leukocyte Esterase Negative (Negative) Urine WBC (Auto) Absent (Absent) Urine RBC (Auto) Trace(0-2/hpf) (Absent) Ur Squamous Epith Cells Present A (Absent) Urine Bacteria Absent (Absent) Urine Glucose Negative (Negative) Influenza A (Rapid) (Negative) Influenza B (Rapid) (Negative) Result Diagrams: 05/20/18 12:32 05/20/18 12:32 Lab Statement: Any lab studies that have been ordered have been reviewed, and results considered in the medical decision making process. - EKG No standard instances Cardiac Rate: NL EKG Rhythm: Sinus Rhythm Summary of EKG Findings: sinus rhythm Complex Multi-Symp Course/Dx Course Of Treatment: 72-year-old male presents with weakness today. He says that has been having a cough and upper respiratory symptoms. Has been felt feverish at home. He states that is a lot slower than normal. states has been having a very unsteady gait. Just feels very weak and lethargic. Appetite has been normal. No chest pain or shortness of breath. Denies any bowel pain. Denies any headache. No dizziness. No change in vision. Has history of Parkinson's. No history of any respiratory illnesses. On exam lungs clear to auscultation. Has a normal neuro exam is just slow to perform tasks. Had patient sit up which is normally able to do no his own at on home but had to assist patient to do so. Chest x-ray normal. Lab work without any significant abnormality. discussed with dr galarza who discussed with dr Cabello do not suspect guillain barre or anything at this time. likely flare of parksinson. with weakness had hospitalist consult who agreed to admit. - Diagnoses Provider Diagnoses: Renal failure, Parkinson's disease Discharge - Sign-Out/Discharge Documenting (check all that apply): Patient Departure - Discharge Plan Condition: Stable Disposition: ADMITTED TO [facility] - Billing Disposition and Condition Condition: STABLE Disposition: Admitted to [facility]
--- NOTE | 2018-05-20 15:22 | ED ---
Progress - Progress Note Progress Note: I evaluated this pt as requested by RAMYA Sommer. Pt is a 72 y/o male [facility] c/o weakness to bilateral lower extremities. Pt had sweats, chills, and felt shaky this morning at 02:00. His cough began this morning. Per , pt was swaying from side to side and couldn' t really walk. Pt has hx of Parkinson's. PHYSICAL EXAM: Constitutional: Well-developed, Well-nourished, Alert. (-) Distressed Skin: Warm, Dry HENT: Normocephalic; Atraumatic Eyes: Conjunctiva normal Neck: Musculoskeletal ROM normal neck. (-) JVD, (-) Stridor, (-) Tracheal deviation Cardio: Rhythm regular, rate normal, Heart sounds normal; Intact distal pulses; The pedal pulses are 2+ and symmetric. Radial pulses are 2+ and symmetric. (-) Murmur Pulmonary/Chest wall: Effort normal. (-) Respiratory distress, (-) Wheezes, (-) Rales Abd: Soft, (-) Tenderness, (-) Distension, (-) Guarding, (-) Rebound Musculoskeletal: (-) Edema. Unable to elicit deep tendon reflexes. Strength is symmetric in upper and lower extremities. Lymph: (-) Cervical adenopathy Neuro: Alert, Oriented x3 Psych: Mood and affect Normal Course/Dx - Course Course Of Treatment: Discussed the case with Dr. Argueta, neurologist, who reports he is not concerned about absence of reflexes in upper and lower extremities. This may be related to his diabetes or febrile illness. No concern for Guillain-Buffalo. Pt is able to get out of bed. He has worsening renal function levels. Pt should be admitted to the hospitalist. RAMYA Sommer, will take over the care for this pt. - Diagnoses Provider Diagnoses: Renal failure, Parkinson's disease - Provider Notifications Discussed Care Of Patient With: Davey Argueta - neurologist Time Discussed With Above Provider: 15:25 Instructed by Provider To: Other - Discussed with Dr. Argueta, neurologist, who reports he is not concerned about absence of reflexes in upper and lower extremities. This may be related to his diabetes or febrile illness. No concern for Guillain-[place]. Discharge - Sign-Out/Discharge Documenting (check all that apply): Patient Departure - Admit to [facility] - Discharge Plan Condition: Stable Disposition: ADMITTED TO [facility] Referrals: Mohinder Putnam MD [Primary Care Provider] - - Attestation Statements Document Initiated by Scribe: Yes Documenting Scribe: Veronika Desir Provider For Whom Scribe is Documenting (Include Credential): Devin Bergman MD Scribe Attestation: Veronika Marley, scribed for Devin Bergman MD on 05/20/18 at 1541. Status of Scribe Document: Ready
[2018-05-20] MEDS ORDERED: Carbidopa/Levodop 25/100 MG TAB(*) PO ONE (15:27)
[2018-05-20] MEDS ORDERED: Magnesium Sulfate 2 GM IV* 2 GM/50 ML BAG IVPB ONE (17:16)
[2018-05-20] MEDS ORDERED: Dextrose 50% Syringe 50 ML* 25 GM/50 ML SYRINGE IV PUSH PRN (17:21)
[2018-05-20] MEDS: Carbidopa/Levodop 25/100 MG TAB(*) PO SCH (19:21)
[2018-05-20] MEDS: Losartan TAB* 25 MG PO SCH (19:21)
[2018-05-20] MEDS: NS 0.9% 1000 ML* 1,000 ML IV SCH (19:22)
[2018-05-20] MEDS: Metoprolol Tartrate TAB* 25 MG PO SCH (20:52)
[2018-05-20] MEDS: Acetaminophen TAB* 325 MG PO PRN (20:52)
[2018-05-20] MEDS: Heparin VIAL(*) 5000 UNITS/ML VIAL (FIVE THOUSAND) SUBCUT SCH (20:52)
[2018-05-20] MEDS ORDERED: Carbidopa/Levodop 25/100 MG TAB(*) PO SCH (21:00)
--- NOTE | 2018-05-20 22:56 | HP ---
CC: Dr. Mohinder Putnam; Dr. Scot Castillo * HISTORY AND PHYSICAL: DATE OF ADMISSION: 05/20/18 PRIMARY CARE PROVIDER: Mohinder Putnam MD NEUROLOGIST: Scot Castillo MD ATTENDING PHYSICIAN: Philly Banerjee DO * (dictated by Michael Dumont NP) CHIEF COMPLAINT: Weakness and upper respiratory symptoms. HISTORY OF PRESENT ILLNESS: Mr. Anderson is a 72-year-old male with a past medical history significant for hypertension, parkinsonism, diabetes mellitus, and hyperlipidemia. According to his , he has been at his baseline. He is able to ambulate around the house with use of a cane. He also participates with a local group in [facility] who do "Parkinson's boxing." According to Mr. Anderson, over the past year, he has had difficulty with his balance feeling off , but noted that this had increased last night. He also states that last evening, he developed upper respiratory symptoms consisting of nasal congestion with a runny nose and a cough. He denies postnasal drip. He was having frequent throat clearing per his . He also reported feeling cold and wearing a sweatshirt due to feeling cool, but did not check his temperature to see if he had a fever. He denies any lightheadedness or dizziness. His notes some slight confusion. He reports coughing up some mucus last evening and yesterday that was clear to white tinged. Last night, his had noticed a difficulty with him being able to sit up on the side of the bed and hold himself up. He was eventually able to get up, but when he went to walk to the bathroom, he was noted to be very unsteady on his feet compared to his baseline. Then, while attempting to sit in a chair, she noticed that he had "difficulty" sitting in the chair like he could not recall the steps to be able to sit down into a chair. It is also to note that a neighbor who had been at their house 3 to 4 days ago has come down with similar upper respiratory symptoms and a cold. Due to his weakness, they have attempted to get him to be seen by his neurologist who is out of the office today, so they presented to the emergency room for further evaluation of the symptoms. While in the emergency room, they had labs that were fairly unremarkable. He was noted to have an elevated lactic acid of 2.3 and acute kidney injury and an elevated creatinine although he had not had a creatinine in our computer system for almost 5 years. He had no leukocytosis, a urinalysis that was unremarkable, influenza A and B that were negative. He had a chest x-ray showing no acute findings, a brain CT showing no acute findings, an EKG showing a sinus rhythm with a rate of 72. The patient was noted to be hypertensive in the emergency room with systolic blood pressures in the 160s to 170s. He reports not taking his blood pressure medications today. The patient's reports increased confusion earlier today that has improved. Due to his weakness, the hospitalists were asked to evaluate the patient for admission. PAST MEDICAL HISTORY: 1. Hypertension. 2. Parkinson's disease. 3. Diabetes mellitus, type 2. 4. Hyperlipidemia. PAST SURGICAL HISTORY: Status post repair of a detached retina. MEDICATIONS: Home medications include: 1. Vitamin B12 500 mcg oral daily. 2. Losartan 50 mg oral daily. 3. Metformin 1000 mg oral twice daily. 4. Metoprolol tartrate 25 mg oral twice daily. 5. Aspirin 81 mg oral daily. 6. Atorvastatin 20 mg oral daily in the evening. 7. Sinemet 25/100 two tablets 3 times daily, takes it at 8 a.m., noon, and 6 p.m. ALLERGIES: PENICILLIN. FAMILY HISTORY: He denies a family history of coronary artery disease. His mother had a history of type 2 diabetes mellitus. Father with a history of testicular cancer and mother with a history of breast cancer. SOCIAL HISTORY: He denies tobacco, recreational drug use. He drinks alcoholic drinks approximately 3 times a week. His , Nereyda Cullen, will be his surrogate decision maker in the event he is unable to make decisions for himself. REVIEW OF SYSTEMS: I performed an 11-point review of systems. All the pertinent positives and negatives are mentioned in the history of present illness. The remaining review of systems is negative. PHYSICAL EXAMINATION GENERAL APPEARANCE: The patient is alert, pleasant, appears to be in no acute distress. VITAL SIGNS: Temperature 99.6, heart rate 77, respiratory rate 24, O2 sat 93% on room air. HEENT: Normocephalic, atraumatic. Pupils are equal and reactive to light. Extraocular movements are intact. NECK: Supple. There is no lymphadenopathy noted. RESPIRATORY: There is no accessory muscle use. Lungs are clear to auscultation , bilateral. CARDIOVASCULAR: Regular rate and rhythm. S1, S2 present. There are no murmurs , rubs, or gallops heard. ABDOMEN: Soft, nontender, nondistended. Bowel sounds present x4. EXTREMITIES: There is no lower extremity edema. DP and PT pulses are 2+ and symmetric. MUSCULOSKELETAL: There is no clubbing or cyanosis noted. The patient exhibits good strength in all extremities. NEUROLOGICAL: He is alert and oriented x4. Cranial nerves II through XII are grossly intact. He has strong dorsi, plantar flexion bilaterally. He is able to lift both legs off the bed. He is able to perform heels from [id number] bilateral without difficulties. He is able to perform [id number] bilateral without difficulties. Smile symmetric. Tongue is midline. Handgrips are equal. PSYCHOLOGICAL: The patient is calm and cooperative. SKIN: There are no rashes or abnormalities seen. DIAGNOSTIC STUDIES/LABORATORY DATA: Sodium 134, potassium 4.6, chloride 102, CO2 25, BUN 20, creatinine 1.63, glucose 135. Magnesium 1.8. CRP 10.60. Lactic acid 2.3. White blood cell count 6.4, hemoglobin 13.9, hematocrit 42, and platelet count 266. Urinalysis 1+ protein, 1+ blood, and squamous epithelial cells present. Influenza A and B negative. EKG shows a sinus rhythm, a rate of 72, there are no acute signs of ischemia. There is T-wave inversion in lead aVL that is consistent with previous EKGs. Chest x-ray from today. Radiologist's impression: No evidence for acute intrathoracic disease. Brain CT from today. Radiologist's impression: No acute intracranial pathology. Chronic small vessel ischemic changes. IMPRESSION: Mr. Anderson is a 72-year-old male with past medical history significant for parkinsonism, hypertension, diabetes mellitus, hyperlipidemia who presents to the emergency room with increased weakness and upper respiratory symptoms. He will be admitted as an observation for weakness, upper respiratory and viral respiratory infection, and acute kidney injury. ASSESSMENT: 1. Weakness. I suspect this is secondary to the patient's viral illness, but could also represent increase in his Parkinson's disease. I am going to give him IV fluids overnight and have Physical Therapy evaluate him tomorrow. 2. Upper respiratory infection. The patient has no fever at this time, has no evidence of active disease on his chest x-ray. He has no leukocytosis. I suspect this represents a viral illness. We will give him supportive care, gentle IV hydration overnight. 3. Acute kidney injury. We will give the patient IV fluids overnight; recheck his labs in the morning. 4. Elevated lactic acid. I suspect this is likely secondary to his viral illness. He is due for a repeat lactic now. He has received a liter of fluids. I am going to give him some more gentle IV hydration overnight and trend his lactic until this is normalized. While he has an elevated lactic, I am going to hold his metformin. 5. Hypomagnesium. I am going to give magnesium replacement today. 6. Hypertension. The patient has been hypertensive in the emergency room. His followup blood pressures are in the 160s to 170s. I suspect this is secondary to him not taking his antihypertensive agents today. I am going to resume his antihypertensive agents. I am going to continue his losartan and metoprolol tartrate. 7. Parkinson's disease. We will continue him on his home Sinemet dosing. Again, I am going to have Physical Therapy see him. Based off of their findings , we will consider a Neurology consult tomorrow. 8. Hyperlipidemia. We will continue the patient's home atorvastatin. 9. Diabetes mellitus. As previously mentioned, I am going to hold the patient' s metformin. I will get glucose checks with meals and a lispro sliding scale for now. 10. Fluids, electrolytes, and nutrition. He will be on a heart healthy diet. 11 Code status. Full code. 12 DVT prophylaxis. He is at a high risk. He will have subcu heparin. 13. Disposition. Observation. TIME SPENT: Time for this admission was approximately 60 minutes, greater than half of that was spent with the patient and his discussing medications, past medical history, the events leading up to his arrival today, performing a physical examination. The case has been reviewed with the attending, Dr. Banerjee, who agrees with the plan of care. MICHAEL DUMONT, COLE [id number]/[facility] #: [id number] [facility]lder
[2018-05-21] MEDS: Heparin VIAL(*) 5000 UNITS/ML VIAL (FIVE THOUSAND) SUBCUT SCH ×3 (05:49→23:04)
[2018-05-21] MEDS: NS 0.9% 1000 ML* 1,000 ML IV SCH ×2 (05:52→17:44)
[2018-05-21 07:23] LABS: ABS Basophils 0 10^3/ul (0-0.2); ABS Eosinophils 0 10^3/ul (0-0.6); ABS Lymphocytes 1.3 10^3/ul (1.0-4.8); ABS Monocytes 1.2 10^3/ul (0-0.8); ABS Neutrophils 3.5 10^3/ul (1.5-7.7); ABS Nucleated RBC 0 10^3/ul; Eosinophil % 0.6 %; Hematocrit 42 % (42-52); Lymphocyte % 20.8 %; Mean Corpuscular HGB Conc 34 g/dl (31-36); Mean Corpuscular Hemoglobin 30 pg (27-31); Mean Corpuscular Volume 90 fL (80-94); Mean Platelet Volume 8.7 fL (7.4-10.4); Nucleated Red Blood Cells % 0.2; Platelet Count 223 10^3/ul (150-450); Red Blood Count 4.62 10^6/ul (4.00-5.40); Red Cell Distribution Width 14 % (10.5-15); White Blood Count 6.1 10^3/ul (3.5-10.8)
[2018-05-21 07:59] LABS: BUN/Creatinine Ratio 11.9 (8-20); Calcium 8.3 mg/dL (8.6-10.3); EGFR Non-African American 45.8 (>60); Potassium 4.8 mmol/L (3.5-5.0)
[2018-05-21] MEDS: Metoprolol Tartrate TAB* 25 MG PO SCH ×2 (08:16→23:05)
[2018-05-21] MEDS: Insulin LISPRO* 1 UNITS UNIT SUBCUT SCH ×3 (08:16→17:30)
[2018-05-21] MEDS: Atorvastatin* 20 MG TAB PO SCH (08:16)
[2018-05-21] MEDS: Losartan TAB* 25 MG PO SCH (08:16)
[2018-05-21] MEDS: Aspirin EC TAB* 81 MG TAB.EC PO SCH (08:17)
[2018-05-21] MEDS: Acetaminophen TAB* 325 MG PO PRN (08:17)
[2018-05-21] MEDS: Cyanocobalamin TAB* 500 MCG PO SCH (08:17)
[2018-05-21 08:30] LABS: Magnesium 2.1 mg/dL (1.9-2.7)
[2018-05-21] MEDS: Carbidopa/Levodop 25/100 MG TAB(*) PO SCH ×3 (08:37→17:44)
--- NOTE | 2018-05-21 19:14 | PN ---
Subjective Date of Service: 05/21/18 Interval History: Transferring to bed from chair on assessment. Standing and transferring well with walker and assist. Reports weakness is improving. Reports he feels improved. Reports he feels he had "a little head cold". Reports frequency of cough is decreasing. Denies sob, cp, palpitation, nausea, vomiting, diarrhea. Objective Active Medications: Acetaminophen (Tylenol Tab*) 650 mg PO Q6H PRN PRN Reason: PAIN Last Admin: 05/21/18 08:17 Dose: 650 mg Aspirin (Aspirin Ec Tab*) 81 mg PO DAILY [facility] Last Admin: 05/21/18 08:17 Dose: 81 mg Atorvastatin Calcium (Lipitor*) 20 mg PO DAILY [facility] Last Admin: 05/21/18 08:16 Dose: 20 mg Carbidopa/Levodopa (Sinemet 25/100 Tab(*)) 2 tab PO 0800,1200,1800 [facility] Last Admin: 05/21/18 17:44 Dose: 2 tab Cyanocobalamin (Vitamin B12 Tab*) 500 mcg PO DAILY [facility] Last Admin: 05/21/18 08:17 Dose: 500 mcg Dextrose (D50w Syringe 50 Ml*) 12.5 gm IV PUSH .FOR FS < 60 - SS PRN PRN Reason: FS < 60 Heparin Sodium (Porcine) (Heparin Vial(*)) 5,000 units SUBCUT Q8HR [facility] Last Admin: 05/21/18 12:37 Dose: 5,000 units Sodium Chloride (Ns 0.9% 1000 Ml*) 1,000 mls @ 100 mls/hr IV PER RATE [facility] Last Admin: 05/21/18 17:44 Dose: 100 mls/hr Insulin Human Lispro (Humalog*) 0 - 5 units SUBCUT AC [facility]; Protocol Last Admin: 05/21/18 17:30 Dose: Not Given Losartan Potassium (Cozaar Tab*) 50 mg PO DAILY [facility] Last Admin: 05/21/18 08:16 Dose: 50 mg Metoprolol Tartrate (Lopressor Tab*) 25 mg PO BID [facility] Last Admin: 05/21/18 08:16 Dose: 25 mg Vital Signs - 8 hr 05/21/18 05/21/18 11:31 15:37 Temperature 97.9 F 98.0 F Pulse Rate 58 62 Respiratory 18 18 Rate Blood Pressure 152/80 145/79 (mmHg) O2 Sat by Pulse 95 91 Oximetry Oxygen Devices in Use Now: None Appearance: Well appearing, NAD Eyes: No Scleral Icterus Ears/Nose/Mouth/Throat: Clear Oropharnyx, Mucous Membranes Moist Neck: NL Appearance and Movements; NL JVP Respiratory: Symmetrical Chest Expansion and Respiratory Effort, Clear to Auscultation Cardiovascular: NL Sounds; No Murmurs; No JVD, RRR, No Edema Abdominal: NL Sounds; No Tenderness; No Distention Lymphatic: No Cervical Adenopathy Extremities: No Edema Skin: No Rash or Ulcers Neurological: Alert and Oriented x 3 Nutrition: Taking PO's Result Diagrams: 05/21/18 07:07 05/21/18 07:07 Additional Lab and Data: Laboratory Results - last 24 hr 05/20/18 05/20/18 05/21/18 19:15 20:58 07:07 WBC RBC Hgb Hct MCV MCH MCHC RDW Plt Count MPV Neut % (Auto) Lymph % (Auto) [place] % (Auto) Eos % (Auto) Baso % (Auto) Absolute Neuts (auto) Absolute Lymphs (auto) Absolute Monos (auto) Absolute Eos (auto) Absolute Basos (auto) Absolute Nucleated RBC Nucleated RBC % Sodium 137 Potassium 4.8 Chloride 107 Carbon Dioxide 22 Anion Gap 8 BUN 18 Creatinine 1.51 H Est GFR ( Amer) 55.4 Est GFR (Non-Af Amer) 45.8 BUN/Creatinine Ratio 11.9 Glucose 123 H POC Glucose (mg/dL) 179 H Lactic Acid 1.9 Calcium 8.3 L Magnesium 2.1 05/21/18 05/21/18 05/21/18 07:07 08:12 11:14 WBC 6.1 RBC 4.62 Hgb 14.0 Hct 42 MCV 90 MCH 30 MCHC 34 RDW 14 Plt Count 223 MPV 8.7 Neut % (Auto) 57.4 Lymph % (Auto) 20.8 [place] % (Auto) 20.4 Eos % (Auto) 0.6 Baso % (Auto) 0.8 Absolute Neuts (auto) 3.5 Absolute Lymphs (auto) 1.3 Absolute Monos (auto) 1.2 H Absolute Eos (auto) 0 Absolute Basos (auto) 0 Absolute Nucleated RBC 0 Nucleated RBC % 0.2 Sodium Potassium Chloride Carbon Dioxide Anion Gap BUN Creatinine Est GFR ( Amer) Est GFR (Non-Af Amer) BUN/Creatinine Ratio Glucose POC Glucose (mg/dL) 134 H 135 H Lactic Acid Calcium Magnesium 05/21/18 16:44 WBC RBC Hgb Hct MCV MCH MCHC RDW Plt Count MPV Neut % (Auto) Lymph % (Auto) [place] % (Auto) Eos % (Auto) Baso % (Auto) Absolute Neuts (auto) Absolute Lymphs (auto) Absolute Monos (auto) Absolute Eos (auto) Absolute Basos (auto) Absolute Nucleated RBC Nucleated RBC % Sodium Potassium Chloride Carbon Dioxide Anion Gap BUN Creatinine Est GFR ( Amer) Est GFR (Non-Af Amer) BUN/Creatinine Ratio Glucose POC Glucose (mg/dL) 122 H Lactic Acid Calcium Magnesium Microbiology and Other Data: Laboratory Results - last 24 hr 05/20/18 05/20/18 05/21/18 19:15 20:58 07:07 WBC RBC Hgb Hct MCV MCH MCHC RDW Plt Count MPV Neut % (Auto) Lymph % (Auto) [place] % (Auto) Eos % (Auto) Baso % (Auto) Absolute Neuts (auto) Absolute Lymphs (auto) Absolute Monos (auto) Absolute Eos (auto) Absolute Basos (auto) Absolute Nucleated RBC Nucleated RBC % Sodium 137 Potassium 4.8 Chloride 107 Carbon Dioxide 22 Anion Gap 8 BUN 18 Creatinine 1.51 H Est GFR ( Amer) 55.4 Est GFR (Non-Af Amer) 45.8 BUN/Creatinine Ratio 11.9 Glucose 123 H POC Glucose (mg/dL) 179 H Lactic Acid 1.9 Calcium 8.3 L Magnesium 2.1 05/21/18 05/21/18 05/21/18 07:07 08:12 11:14 WBC 6.1 RBC 4.62 Hgb 14.0 Hct 42 MCV 90 MCH 30 MCHC 34 RDW 14 Plt Count 223 MPV 8.7 Neut % (Auto) 57.4 Lymph % (Auto) 20.8 [place] % (Auto) 20.4 Eos % (Auto) 0.6 Baso % (Auto) 0.8 Absolute Neuts (auto) 3.5 Absolute Lymphs (auto) 1.3 Absolute Monos (auto) 1.2 H Absolute Eos (auto) 0 Absolute Basos (auto) 0 Absolute Nucleated RBC 0 Nucleated RBC % 0.2 Sodium Potassium Chloride Carbon Dioxide Anion Gap BUN Creatinine Est GFR ( Amer) Est GFR (Non-Af Amer) BUN/Creatinine Ratio Glucose POC Glucose (mg/dL) 134 H 135 H Lactic Acid Calcium Magnesium 05/21/18 16:44 WBC RBC Hgb Hct MCV MCH MCHC RDW Plt Count MPV Neut % (Auto) Lymph % (Auto) [place] % (Auto) Eos % (Auto) Baso % (Auto) Absolute Neuts (auto) Absolute Lymphs (auto) Absolute Monos (auto) Absolute Eos (auto) Absolute Basos (auto) Absolute Nucleated RBC Nucleated RBC % Sodium Potassium Chloride Carbon Dioxide Anion Gap BUN Creatinine Est GFR ( Amer) Est GFR (Non-Af Amer) BUN/Creatinine Ratio Glucose POC Glucose (mg/dL) 122 H Lactic Acid Calcium Magnesium Assess/Plan/Problems-Billing Assessment: 72 yr old male with phm of parkinsons, htn, hld, amd DM; who presented to the ED with URI symptoms and weakness. - Patient Problems (1) Weakness Comment: - Improving - Physical therapy consulting (2) Upper respiratory disease Comment: - Improving - No acute findings on chest xray - WBC wnl - Continue supportive care - Encourage incentive spirometer (3) PAM (acute kidney injury) Current Visit: Yes Status: Acute Code(s): N17.9 - ACUTE KIDNEY FAILURE, UNSPECIFIED SNOMED Code(s): 68438594 Comment: - Creatinine trending down - Cont IVF (4) HTN (hypertension) Comment: - Cont home meds (5) Elevated lactic acid level Comment: - Resolved - No growth on BC Day 1 (6) Electrolyte abnormality Comment: - Received Mag replacement on admission as Mag was 1.8 - Recheck tomorrow (7) Hyperlipidemia Comment: - Cont statin (8) Parkinsons Comment: - Cont Sinemet - May need neuro consult if not reaching baseline as could be progress of his disease - Reassess after PT eval (9) Diabetes Comment: - Metformin held - Sliding scale Status and Disposition: D/C home when medically stable Attending: Hayder Mcknight
[2018-05-22] MEDS: Heparin VIAL(*) 5000 UNITS/ML VIAL (FIVE THOUSAND) SUBCUT SCH ×3 (06:25→23:22)
[2018-05-22 07:52] LABS: BUN/Creatinine Ratio 13.4 (8-20); Calcium 8.3 mg/dL (8.6-10.3); EGFR Non-African American 43.8 (>60); Magnesium 1.8 mg/dL (1.9-2.7); Potassium 4.2 mmol/L (3.5-5.0)
[2018-05-22] MEDS: Insulin LISPRO* 1 UNITS UNIT SUBCUT SCH ×4 (08:02→16:27)
[2018-05-22] MEDS: Atorvastatin* 20 MG TAB PO SCH (08:07)
[2018-05-22] MEDS: Metoprolol Tartrate TAB* 25 MG PO SCH ×2 (08:08→23:20)
[2018-05-22] MEDS: Carbidopa/Levodop 25/100 MG TAB(*) PO SCH ×3 (08:08→17:53)
[2018-05-22] MEDS: Cyanocobalamin TAB* 500 MCG PO SCH (08:08)
[2018-05-22] MEDS: Losartan TAB* 25 MG PO SCH (08:09)
[2018-05-22] MEDS: Aspirin EC TAB* 81 MG TAB.EC PO SCH (08:09)
[2018-05-22] MEDS ORDERED: Magnesium Sulfate 2 GM IV* 2 GM/50 ML BAG IVPB ONE (08:12)
--- NOTE | 2018-05-22 14:20 | PN ---
Subjective Date of Service: 05/22/18 Interval History: No acute issues, has not been walking around. Family at bedside. Patient refusing insulin. Explained to him the benefit of insulin, patient concerned about not getting his metformin- discussed that it was held due to elevated lactic acid and fluctuating kidney function. No chest pain, no shorntess of breath. Objective Active Medications: Acetaminophen (Tylenol Tab*) 650 mg PO Q6H PRN PRN Reason: PAIN Last Admin: 05/21/18 08:17 Dose: 650 mg Aspirin (Aspirin Ec Tab*) 81 mg PO DAILY [facility] Last Admin: 05/22/18 08:09 Dose: 81 mg Atorvastatin Calcium (Lipitor*) 20 mg PO DAILY [facility] Last Admin: 05/22/18 08:07 Dose: 20 mg Carbidopa/Levodopa (Sinemet 25/100 Tab(*)) 2 tab PO 0800,1200,1800 [facility] Last Admin: 05/22/18 12:22 Dose: 2 tab Cyanocobalamin (Vitamin B12 Tab*) 500 mcg PO DAILY [facility] Last Admin: 05/22/18 08:08 Dose: 500 mcg Dextrose (D50w Syringe 50 Ml*) 12.5 gm IV PUSH .FOR FS < 60 - SS PRN PRN Reason: FS < 60 Heparin Sodium (Porcine) (Heparin Vial(*)) 5,000 units SUBCUT Q8HR [facility] Last Admin: 05/22/18 12:26 Dose: Not Given Insulin Human Lispro (Humalog*) 0 - 5 units SUBCUT AC [facility]; Protocol Last Admin: 05/22/18 12:28 Dose: Not Given Losartan Potassium (Cozaar Tab*) 50 mg PO DAILY [facility] Last Admin: 05/22/18 08:09 Dose: 50 mg Metoprolol Tartrate (Lopressor Tab*) 25 mg PO BID [facility] Last Admin: 05/22/18 08:08 Dose: 25 mg Vital Signs - 8 hr 05/22/18 05/22/18 05/22/18 07:53 08:19 11:31 Temperature 98.1 F Pulse Rate 76 68 72 Respiratory 14 Rate Blood Pressure 148/89 143/81 (mmHg) O2 Sat by Pulse 93 91 Oximetry Oxygen Devices in Use Now: None Appearance: Elderly male, sitting on chair, in no distress Ears/Nose/Mouth/Throat: - - oral mucosa dry Respiratory: Clear to Auscultation Cardiovascular: NL Sounds; No Murmurs; No JVD, No Edema Abdominal: NL Sounds; No Tenderness; No Distention Neurological: Alert and Oriented x 3 Result Diagrams: 05/21/18 07:07 05/22/18 07:15 Additional Lab and Data: Laboratory Results - last 24 hr 05/20/18 05/20/18 05/21/18 19:15 20:58 07:07 WBC RBC Hgb Hct MCV MCH MCHC RDW Plt Count MPV Neut % (Auto) Lymph % (Auto) [place] % (Auto) Eos % (Auto) Baso % (Auto) Absolute Neuts (auto) Absolute Lymphs (auto) Absolute Monos (auto) Absolute Eos (auto) Absolute Basos (auto) Absolute Nucleated RBC Nucleated RBC % Sodium 137 Potassium 4.8 Chloride 107 Carbon Dioxide 22 Anion Gap 8 BUN 18 Creatinine 1.51 H Est GFR ( Amer) 55.4 Est GFR (Non-Af Amer) 45.8 BUN/Creatinine Ratio 11.9 Glucose 123 H POC Glucose (mg/dL) 179 H Lactic Acid 1.9 Calcium 8.3 L Magnesium 2.1 05/21/18 05/21/18 05/21/18 07:07 08:12 11:14 WBC 6.1 RBC 4.62 Hgb 14.0 Hct 42 MCV 90 MCH 30 MCHC 34 RDW 14 Plt Count 223 MPV 8.7 Neut % (Auto) 57.4 Lymph % (Auto) 20.8 [place] % (Auto) 20.4 Eos % (Auto) 0.6 Baso % (Auto) 0.8 Absolute Neuts (auto) 3.5 Absolute Lymphs (auto) 1.3 Absolute Monos (auto) 1.2 H Absolute Eos (auto) 0 Absolute Basos (auto) 0 Absolute Nucleated RBC 0 Nucleated RBC % 0.2 Sodium Potassium Chloride Carbon Dioxide Anion Gap BUN Creatinine Est GFR ( Amer) Est GFR (Non-Af Amer) BUN/Creatinine Ratio Glucose POC Glucose (mg/dL) 134 H 135 H Lactic Acid Calcium Magnesium 05/21/18 16:44 WBC RBC Hgb Hct MCV MCH MCHC RDW Plt Count MPV Neut % (Auto) Lymph % (Auto) [place] % (Auto) Eos % (Auto) Baso % (Auto) Absolute Neuts (auto) Absolute Lymphs (auto) Absolute Monos (auto) Absolute Eos (auto) Absolute Basos (auto) Absolute Nucleated RBC Nucleated RBC % Sodium Potassium Chloride Carbon Dioxide Anion Gap BUN Creatinine Est GFR ( Amer) Est GFR (Non-Af Amer) BUN/Creatinine Ratio Glucose POC Glucose (mg/dL) 122 H Lactic Acid Calcium Magnesium Microbiology and Other Data: Laboratory Results - last 24 hr 05/20/18 05/20/18 05/21/18 19:15 20:58 07:07 WBC RBC Hgb Hct MCV MCH MCHC RDW Plt Count MPV Neut % (Auto) Lymph % (Auto) [place] % (Auto) Eos % (Auto) Baso % (Auto) Absolute Neuts (auto) Absolute Lymphs (auto) Absolute Monos (auto) Absolute Eos (auto) Absolute Basos (auto) Absolute Nucleated RBC Nucleated RBC % Sodium 137 Potassium 4.8 Chloride 107 Carbon Dioxide 22 Anion Gap 8 BUN 18 Creatinine 1.51 H Est GFR ( Amer) 55.4 Est GFR (Non-Af Amer) 45.8 BUN/Creatinine Ratio 11.9 Glucose 123 H POC Glucose (mg/dL) 179 H Lactic Acid 1.9 Calcium 8.3 L Magnesium 2.1 05/21/18 05/21/18 05/21/18 07:07 08:12 11:14 WBC 6.1 RBC 4.62 Hgb 14.0 Hct 42 MCV 90 MCH 30 MCHC 34 RDW 14 Plt Count 223 MPV 8.7 Neut % (Auto) 57.4 Lymph % (Auto) 20.8 [place] % (Auto) 20.4 Eos % (Auto) 0.6 Baso % (Auto) 0.8 Absolute Neuts (auto) 3.5 Absolute Lymphs (auto) 1.3 Absolute Monos (auto) 1.2 H Absolute Eos (auto) 0 Absolute Basos (auto) 0 Absolute Nucleated RBC 0 Nucleated RBC % 0.2 Sodium Potassium Chloride Carbon Dioxide Anion Gap BUN Creatinine Est GFR ( Amer) Est GFR (Non-Af Amer) BUN/Creatinine Ratio Glucose POC Glucose (mg/dL) 134 H 135 H Lactic Acid Calcium Magnesium 05/21/18 16:44 WBC RBC Hgb Hct MCV MCH MCHC RDW Plt Count MPV Neut % (Auto) Lymph % (Auto) [place] % (Auto) Eos % (Auto) Baso % (Auto) Absolute Neuts (auto) Absolute Lymphs (auto) Absolute Monos (auto) Absolute Eos (auto) Absolute Basos (auto) Absolute Nucleated RBC Nucleated RBC % Sodium Potassium Chloride Carbon Dioxide Anion Gap BUN Creatinine Est GFR ( Amer) Est GFR (Non-Af Amer) BUN/Creatinine Ratio Glucose POC Glucose (mg/dL) 122 H Lactic Acid Calcium Magnesium Assess/Plan/Problems-Billing Assessment: 72 yr old male with phm of parkinsons, htn, hld, amd DM; who presented to the ED with URI symptoms and weakness. - Patient Problems (1) PAM (acute kidney injury) Current Visit: Yes Status: Acute Code(s): N17.9 - ACUTE KIDNEY FAILURE, UNSPECIFIED SNOMED Code(s): 87719795 Comment: - Creatinine trended upward slightly -Advised/ Encouraged patient of oral hydration - Cont IVF (2) Diabetes Current Visit: Yes Status: Acute Code(s): E11.9 - TYPE 2 DIABETES MELLITUS WITHOUT COMPLICATIONS SNOMED Code(s): 56187763 Comment: - Metformin held - advised patient to allow administartion of the insulin Sliding scale (3) Electrolyte abnormality Current Visit: Yes Status: Acute Code(s): E87.8 - OTH DISORDERS OF ELECTROLYTE AND FLUID BALANCE, NEC SNOMED Code(s): 183318859 Comment: - Received Mg earlier today - Recheck tomorrow (4) Elevated lactic acid level Current Visit: Yes Status: Acute Code(s): R79.89 - OTHER SPECIFIED ABNORMAL FINDINGS OF BLOOD CHEMISTRY SNOMED Code(s): 0618674 Comment: - Resolved - Blood cultures remain negative. (5) HTN (hypertension) Current Visit: Yes Status: Acute Code(s): I10 - ESSENTIAL (PRIMARY) HYPERTENSION SNOMED Code(s): 17812299 Comment: - Cont home meds (6) Hyperlipidemia Current Visit: Yes Status: Acute Code(s): E78.5 - HYPERLIPIDEMIA, UNSPECIFIED SNOMED Code(s): 95415991 Comment: - Cont statin (7) Parkinsons Current Visit: Yes Status: Acute Code(s): G20 - PARKINSON'S DISEASE SNOMED Code(s): 63114671 Comment: - Cont Sinemet - May need neuro consult if not reaching baseline as could be progress of his disease - Reassess after PT eval (8) Upper respiratory disease Current Visit: Yes Status: Acute Code(s): J39.9 - DISEASE OF UPPER RESPIRATORY TRACT, UNSPECIFIED SNOMED Code(s): 550118530 Comment: - Improving - No acute findings on chest xray - WBC wnl - Continue supportive care - Encourage incentive spirometer Status and Disposition: D/C home when medically stable
[2018-05-23] MEDS: Heparin VIAL(*) 5000 UNITS/ML VIAL (FIVE THOUSAND) SUBCUT SCH ×3 (06:40→21:00)
[2018-05-23] MEDS: Insulin LISPRO* 1 UNITS UNIT SUBCUT SCH ×3 (07:20→17:18)
[2018-05-23 07:35] LABS: BUN/Creatinine Ratio 16.8 (8-20); Calcium 8.5 mg/dL (8.6-10.3); EGFR Non-African American 40.8 (>60); Magnesium 2.1 mg/dL (1.9-2.7); Phosphorus 3.6 mg/dL (2.5-5.0); Potassium 4.4 mmol/L (3.5-5.0)
[2018-05-23] MEDS: Losartan TAB* 25 MG PO SCH (08:16)
[2018-05-23] MEDS: Cyanocobalamin TAB* 500 MCG PO SCH (08:16)
[2018-05-23] MEDS: Metoprolol Tartrate TAB* 25 MG PO SCH ×2 (08:16→20:59)
[2018-05-23] MEDS: Atorvastatin* 20 MG TAB PO SCH (08:16)
[2018-05-23] MEDS: Aspirin EC TAB* 81 MG TAB.EC PO SCH (08:16)
[2018-05-23] MEDS: Carbidopa/Levodop 25/100 MG TAB(*) PO SCH ×3 (08:20→17:34)
[2018-05-23] MEDS ORDERED: Pneumococcal *Vac Polyvalent 0.5 ML VIAL IM ONE (12:00)
--- NOTE | 2018-05-23 12:56 | PN ---
Subjective Date of Service: 05/23/18 Interval History: Doing well, no acute complaints. Objective Active Medications: Acetaminophen (Tylenol Tab*) 650 mg PO Q6H PRN PRN Reason: PAIN Last Admin: 05/21/18 08:17 Dose: 650 mg Aspirin (Aspirin Ec Tab*) 81 mg PO DAILY [facility] Last Admin: 05/23/18 08:16 Dose: 81 mg Atorvastatin Calcium (Lipitor*) 20 mg PO DAILY [facility] Last Admin: 05/23/18 08:16 Dose: 20 mg Carbidopa/Levodopa (Sinemet 25/100 Tab(*)) 2 tab PO 0800,1200,1800 [facility] Last Admin: 05/23/18 08:20 Dose: 2 tab Cyanocobalamin (Vitamin B12 Tab*) 500 mcg PO DAILY [facility] Last Admin: 05/23/18 08:16 Dose: 500 mcg Dextrose (D50w Syringe 50 Ml*) 12.5 gm IV PUSH .FOR FS < 60 - SS PRN PRN Reason: FS < 60 Heparin Sodium (Porcine) (Heparin Vial(*)) 5,000 units SUBCUT Q8HR [facility] Last Admin: 05/23/18 06:40 Dose: 5,000 units Insulin Human Lispro (Humalog*) 0 - 5 units SUBCUT AC [facility]; Protocol Last Admin: 05/23/18 12:06 Dose: Not Given Losartan Potassium (Cozaar Tab*) 50 mg PO DAILY [facility] Last Admin: 05/23/18 08:16 Dose: 50 mg Metoprolol Tartrate (Lopressor Tab*) 25 mg PO BID [facility] Last Admin: 05/23/18 08:16 Dose: 25 mg Vital Signs - 8 hr 05/23/18 05/23/18 05/23/18 07:44 09:04 11:49 Temperature 98.0 F 97.4 F Pulse Rate 68 62 Respiratory 20 16 24 Rate Blood Pressure 138/85 153/81 (mmHg) O2 Sat by Pulse 93 93 95 Oximetry Oxygen Devices in Use Now: None Eyes: PERRLA Respiratory: Clear to Auscultation Cardiovascular: RRR Abdominal: NL Sounds; No Tenderness; No Distention Neurological: Alert and Oriented x 3 Result Diagrams: 05/21/18 07:07 05/23/18 06:58 Additional Lab and Data: Laboratory Results - last 24 hr 05/20/18 05/20/18 05/21/18 19:15 20:58 07:07 WBC RBC Hgb Hct MCV MCH MCHC RDW Plt Count MPV Neut % (Auto) Lymph % (Auto) [place] % (Auto) Eos % (Auto) Baso % (Auto) Absolute Neuts (auto) Absolute Lymphs (auto) Absolute Monos (auto) Absolute Eos (auto) Absolute Basos (auto) Absolute Nucleated RBC Nucleated RBC % Sodium 137 Potassium 4.8 Chloride 107 Carbon Dioxide 22 Anion Gap 8 BUN 18 Creatinine 1.51 H Est GFR ( Amer) 55.4 Est GFR (Non-Af Amer) 45.8 BUN/Creatinine Ratio 11.9 Glucose 123 H POC Glucose (mg/dL) 179 H Lactic Acid 1.9 Calcium 8.3 L Magnesium 2.1 05/21/18 05/21/18 05/21/18 07:07 08:12 11:14 WBC 6.1 RBC 4.62 Hgb 14.0 Hct 42 MCV 90 MCH 30 MCHC 34 RDW 14 Plt Count 223 MPV 8.7 Neut % (Auto) 57.4 Lymph % (Auto) 20.8 [place] % (Auto) 20.4 Eos % (Auto) 0.6 Baso % (Auto) 0.8 Absolute Neuts (auto) 3.5 Absolute Lymphs (auto) 1.3 Absolute Monos (auto) 1.2 H Absolute Eos (auto) 0 Absolute Basos (auto) 0 Absolute Nucleated RBC 0 Nucleated RBC % 0.2 Sodium Potassium Chloride Carbon Dioxide Anion Gap BUN Creatinine Est GFR ( Amer) Est GFR (Non-Af Amer) BUN/Creatinine Ratio Glucose POC Glucose (mg/dL) 134 H 135 H Lactic Acid Calcium Magnesium 05/21/18 16:44 WBC RBC Hgb Hct MCV MCH MCHC RDW Plt Count MPV Neut % (Auto) Lymph % (Auto) [place] % (Auto) Eos % (Auto) Baso % (Auto) Absolute Neuts (auto) Absolute Lymphs (auto) Absolute Monos (auto) Absolute Eos (auto) Absolute Basos (auto) Absolute Nucleated RBC Nucleated RBC % Sodium Potassium Chloride Carbon Dioxide Anion Gap BUN Creatinine Est GFR ( Amer) Est GFR (Non-Af Amer) BUN/Creatinine Ratio Glucose POC Glucose (mg/dL) 122 H Lactic Acid Calcium Magnesium Microbiology and Other Data: Laboratory Results - last 24 hr 05/20/18 05/20/18 05/21/18 19:15 20:58 07:07 WBC RBC Hgb Hct MCV MCH MCHC RDW Plt Count MPV Neut % (Auto) Lymph % (Auto) [place] % (Auto) Eos % (Auto) Baso % (Auto) Absolute Neuts (auto) Absolute Lymphs (auto) Absolute Monos (auto) Absolute Eos (auto) Absolute Basos (auto) Absolute Nucleated RBC Nucleated RBC % Sodium 137 Potassium 4.8 Chloride 107 Carbon Dioxide 22 Anion Gap 8 BUN 18 Creatinine 1.51 H Est GFR ( Amer) 55.4 Est GFR (Non-Af Amer) 45.8 BUN/Creatinine Ratio 11.9 Glucose 123 H POC Glucose (mg/dL) 179 H Lactic Acid 1.9 Calcium 8.3 L Magnesium 2.1 05/21/18 05/21/18 05/21/18 07:07 08:12 11:14 WBC 6.1 RBC 4.62 Hgb 14.0 Hct 42 MCV 90 MCH 30 MCHC 34 RDW 14 Plt Count 223 MPV 8.7 Neut % (Auto) 57.4 Lymph % (Auto) 20.8 [place] % (Auto) 20.4 Eos % (Auto) 0.6 Baso % (Auto) 0.8 Absolute Neuts (auto) 3.5 Absolute Lymphs (auto) 1.3 Absolute Monos (auto) 1.2 H Absolute Eos (auto) 0 Absolute Basos (auto) 0 Absolute Nucleated RBC 0 Nucleated RBC % 0.2 Sodium Potassium Chloride Carbon Dioxide Anion Gap BUN Creatinine Est GFR ( Amer) Est GFR (Non-Af Amer) BUN/Creatinine Ratio Glucose POC Glucose (mg/dL) 134 H 135 H Lactic Acid Calcium Magnesium 05/21/18 16:44 WBC RBC Hgb Hct MCV MCH MCHC RDW Plt Count MPV Neut % (Auto) Lymph % (Auto) [place] % (Auto) Eos % (Auto) Baso % (Auto) Absolute Neuts (auto) Absolute Lymphs (auto) Absolute Monos (auto) Absolute Eos (auto) Absolute Basos (auto) Absolute Nucleated RBC Nucleated RBC % Sodium Potassium Chloride Carbon Dioxide Anion Gap BUN Creatinine Est GFR ( Amer) Est GFR (Non-Af Amer) BUN/Creatinine Ratio Glucose POC Glucose (mg/dL) 122 H Lactic Acid Calcium Magnesium Assess/Plan/Problems-Billing Assessment: 72 yr old male with phm of parkinsons, htn, hld, amd DM; who presented to the ED with URI symptoms and weakness. - Patient Problems (1) PAM (acute kidney injury) Current Visit: Yes Status: Acute Code(s): N17.9 - ACUTE KIDNEY FAILURE, UNSPECIFIED SNOMED Code(s): 12479379 Comment: - Creatinine trended upward slightly -Advised/ Encouraged patient of oral hydration - Will obtain old records, as the last prior blood work we have in our system is 2013, we do not know his current baseline. - will get kidney/bladder ultrasound. Hold ARB (2) Diabetes Current Visit: Yes Status: Acute Code(s): E11.9 - TYPE 2 DIABETES MELLITUS WITHOUT COMPLICATIONS SNOMED Code(s): 67185967 Comment: - Metformin held - advised patient to allow administartion of the insulin Sliding scale (3) Electrolyte abnormality Current Visit: Yes Status: Acute Code(s): E87.8 - OTH DISORDERS OF ELECTROLYTE AND FLUID BALANCE, NEC SNOMED Code(s): 430288359 Comment: Hypomagnsemia resolved. (4) Elevated lactic acid level Current Visit: Yes Status: Acute Code(s): R79.89 - OTHER SPECIFIED ABNORMAL FINDINGS OF BLOOD CHEMISTRY SNOMED Code(s): 1017079 Comment: - Resolved - Blood cultures remain negative. (5) HTN (hypertension) Current Visit: Yes Status: Acute Code(s): I10 - ESSENTIAL (PRIMARY) HYPERTENSION SNOMED Code(s): 96320836 Comment: - Cont home meds, d/c'ed losartan due to PAM. (6) Hyperlipidemia Current Visit: Yes Status: Acute Code(s): E78.5 - HYPERLIPIDEMIA, UNSPECIFIED SNOMED Code(s): 84133689 Comment: - Cont statin (7) Parkinsons Current Visit: Yes Status: Acute Code(s): G20 - PARKINSON'S DISEASE SNOMED Code(s): 44026983 Comment: - Cont Sinemet - May need neuro consult if not reaching baseline as could be progress of his disease - Reassess after PT eval (8) Upper respiratory disease Current Visit: Yes Status: Acute Code(s): J39.9 - DISEASE OF UPPER RESPIRATORY TRACT, UNSPECIFIED SNOMED Code(s): 776708376 Comment: - Improving - No acute findings on chest xray - WBC wnl - Continue supportive care - Encourage incentive spirometer Status and Disposition: D/C home when medically stable
[2018-05-23] MEDS ORDERED: NS 0.9% 1000 ML* 1,000 ML IV SCH (16:30)
[2018-05-24] MEDS: Heparin VIAL(*) 5000 UNITS/ML VIAL (FIVE THOUSAND) SUBCUT SCH (06:08)
[2018-05-24 08:14] LABS: BUN/Creatinine Ratio 18.4 (8-20); Calcium 8.1 mg/dL (8.6-10.3); EGFR Non-African American 41.9 (>60); Potassium 4.2 mmol/L (3.5-5.0)
--- NOTE | 2018-05-24 10:40 | PN ---
Subjective Date of Service: 05/24/18 Interval History: Doing well no issues. Objective Active Medications: Acetaminophen (Tylenol Tab*) 650 mg PO Q6H PRN PRN Reason: PAIN Last Admin: 05/21/18 08:17 Dose: 650 mg Aspirin (Aspirin Ec Tab*) 81 mg PO DAILY [facility] Last Admin: 05/23/18 08:16 Dose: 81 mg Atorvastatin Calcium (Lipitor*) 20 mg PO DAILY [facility] Last Admin: 05/23/18 08:16 Dose: 20 mg Carbidopa/Levodopa (Sinemet 25/100 Tab(*)) 2 tab PO 0800,1200,1800 [facility] Last Admin: 05/23/18 17:34 Dose: 2 tab Cyanocobalamin (Vitamin B12 Tab*) 500 mcg PO DAILY [facility] Last Admin: 05/23/18 08:16 Dose: 500 mcg Dextrose (D50w Syringe 50 Ml*) 12.5 gm IV PUSH .FOR FS < 60 - SS PRN PRN Reason: FS < 60 Heparin Sodium (Porcine) (Heparin Vial(*)) 5,000 units SUBCUT Q8HR [facility] Last Admin: 05/24/18 06:08 Dose: 5,000 units Sodium Chloride (Ns 0.9% 1000 Ml*) 1,000 mls @ 75 mls/hr IV PER RATE [facility] Last Admin: 05/23/18 17:35 Dose: 75 mls/hr Insulin Human Lispro (Humalog*) 0 - 5 units SUBCUT AC [facility]; Protocol Last Admin: 05/23/18 17:18 Dose: Not Given Metoprolol Tartrate (Lopressor Tab*) 25 mg PO BID [facility] Last Admin: 05/23/18 20:59 Dose: 25 mg Vital Signs - 8 hr 05/24/18 03:21 Temperature 98.2 F Pulse Rate 56 Respiratory 18 Rate Blood Pressure 148/81 (mmHg) O2 Sat by Pulse 96 Oximetry Oxygen Devices in Use Now: None Eyes: PERRLA Respiratory: Clear to Auscultation Cardiovascular: RRR Abdominal: NL Sounds; No Tenderness; No Distention Neurological: Alert and Oriented x 3 Result Diagrams: 05/21/18 07:07 05/24/18 07:42 Additional Lab and Data: Laboratory Results - last 24 hr 05/20/18 05/20/18 05/21/18 19:15 20:58 07:07 WBC RBC Hgb Hct MCV MCH MCHC RDW Plt Count MPV Neut % (Auto) Lymph % (Auto) [place] % (Auto) Eos % (Auto) Baso % (Auto) Absolute Neuts (auto) Absolute Lymphs (auto) Absolute Monos (auto) Absolute Eos (auto) Absolute Basos (auto) Absolute Nucleated RBC Nucleated RBC % Sodium 137 Potassium 4.8 Chloride 107 Carbon Dioxide 22 Anion Gap 8 BUN 18 Creatinine 1.51 H Est GFR ( Amer) 55.4 Est GFR (Non-Af Amer) 45.8 BUN/Creatinine Ratio 11.9 Glucose 123 H POC Glucose (mg/dL) 179 H Lactic Acid 1.9 Calcium 8.3 L Magnesium 2.1 05/21/18 05/21/18 05/21/18 07:07 08:12 11:14 WBC 6.1 RBC 4.62 Hgb 14.0 Hct 42 MCV 90 MCH 30 MCHC 34 RDW 14 Plt Count 223 MPV 8.7 Neut % (Auto) 57.4 Lymph % (Auto) 20.8 [place] % (Auto) 20.4 Eos % (Auto) 0.6 Baso % (Auto) 0.8 Absolute Neuts (auto) 3.5 Absolute Lymphs (auto) 1.3 Absolute Monos (auto) 1.2 H Absolute Eos (auto) 0 Absolute Basos (auto) 0 Absolute Nucleated RBC 0 Nucleated RBC % 0.2 Sodium Potassium Chloride Carbon Dioxide Anion Gap BUN Creatinine Est GFR ( Amer) Est GFR (Non-Af Amer) BUN/Creatinine Ratio Glucose POC Glucose (mg/dL) 134 H 135 H Lactic Acid Calcium Magnesium 05/21/18 16:44 WBC RBC Hgb Hct MCV MCH MCHC RDW Plt Count MPV Neut % (Auto) Lymph % (Auto) [place] % (Auto) Eos % (Auto) Baso % (Auto) Absolute Neuts (auto) Absolute Lymphs (auto) Absolute Monos (auto) Absolute Eos (auto) Absolute Basos (auto) Absolute Nucleated RBC Nucleated RBC % Sodium Potassium Chloride Carbon Dioxide Anion Gap BUN Creatinine Est GFR ( Amer) Est GFR (Non-Af Amer) BUN/Creatinine Ratio Glucose POC Glucose (mg/dL) 122 H Lactic Acid Calcium Magnesium Microbiology and Other Data: Laboratory Results - last 24 hr 05/20/18 05/20/18 05/21/18 19:15 20:58 07:07 WBC RBC Hgb Hct MCV MCH MCHC RDW Plt Count MPV Neut % (Auto) Lymph % (Auto) [place] % (Auto) Eos % (Auto) Baso % (Auto) Absolute Neuts (auto) Absolute Lymphs (auto) Absolute Monos (auto) Absolute Eos (auto) Absolute Basos (auto) Absolute Nucleated RBC Nucleated RBC % Sodium 137 Potassium 4.8 Chloride 107 Carbon Dioxide 22 Anion Gap 8 BUN 18 Creatinine 1.51 H Est GFR ( Amer) 55.4 Est GFR (Non-Af Amer) 45.8 BUN/Creatinine Ratio 11.9 Glucose 123 H POC Glucose (mg/dL) 179 H Lactic Acid 1.9 Calcium 8.3 L Magnesium 2.1 05/21/18 05/21/18 05/21/18 07:07 08:12 11:14 WBC 6.1 RBC 4.62 Hgb 14.0 Hct 42 MCV 90 MCH 30 MCHC 34 RDW 14 Plt Count 223 MPV 8.7 Neut % (Auto) 57.4 Lymph % (Auto) 20.8 [place] % (Auto) 20.4 Eos % (Auto) 0.6 Baso % (Auto) 0.8 Absolute Neuts (auto) 3.5 Absolute Lymphs (auto) 1.3 Absolute Monos (auto) 1.2 H Absolute Eos (auto) 0 Absolute Basos (auto) 0 Absolute Nucleated RBC 0 Nucleated RBC % 0.2 Sodium Potassium Chloride Carbon Dioxide Anion Gap BUN Creatinine Est GFR ( Amer) Est GFR (Non-Af Amer) BUN/Creatinine Ratio Glucose POC Glucose (mg/dL) 134 H 135 H Lactic Acid Calcium Magnesium 05/21/18 16:44 WBC RBC Hgb Hct MCV MCH MCHC RDW Plt Count MPV Neut % (Auto) Lymph % (Auto) [place] % (Auto) Eos % (Auto) Baso % (Auto) Absolute Neuts (auto) Absolute Lymphs (auto) Absolute Monos (auto) Absolute Eos (auto) Absolute Basos (auto) Absolute Nucleated RBC Nucleated RBC % Sodium Potassium Chloride Carbon Dioxide Anion Gap BUN Creatinine Est GFR ( Amer) Est GFR (Non-Af Amer) BUN/Creatinine Ratio Glucose POC Glucose (mg/dL) 122 H Lactic Acid Calcium Magnesium Assess/Plan/Problems-Billing Assessment: 72 yr old male with phm of parkinsons, htn, hld, amd DM; who presented to the ED with URI symptoms and weakness. - Patient Problems (1) PAM (acute kidney injury) Current Visit: Yes Status: Acute Code(s): N17.9 - ACUTE KIDNEY FAILURE, UNSPECIFIED SNOMED Code(s): 76063396 Comment: - Creatinine trended upward slightly -Advised/ Encouraged patient of oral hydration labs from outside facility puts baseline at 1.4 Cr. Kidney/badder ultrasound showed no acute pathology Hold ARB (2) Diabetes Current Visit: Yes Status: Acute Code(s): E11.9 - TYPE 2 DIABETES MELLITUS WITHOUT COMPLICATIONS SNOMED Code(s): 37540963 Comment: - Metformin held - advised patient to allow administartion of the insulin Sliding scale (3) Electrolyte abnormality Current Visit: Yes Status: Acute Code(s): E87.8 - OTH DISORDERS OF ELECTROLYTE AND FLUID BALANCE, NEC SNOMED Code(s): 554605208 Comment: Hypomagnsemia resolved. (4) Elevated lactic acid level Current Visit: Yes Status: Acute Code(s): R79.89 - OTHER SPECIFIED ABNORMAL FINDINGS OF BLOOD CHEMISTRY SNOMED Code(s): 6548969 Comment: - Resolved - Blood cultures remain negative. (5) HTN (hypertension) Current Visit: Yes Status: Acute Code(s): I10 - ESSENTIAL (PRIMARY) HYPERTENSION SNOMED Code(s): 62910500 Comment: - Cont home meds, d/c'ed losartan due to PAM. (6) Hyperlipidemia Current Visit: Yes Status: Acute Code(s): E78.5 - HYPERLIPIDEMIA, UNSPECIFIED SNOMED Code(s): 80362596 Comment: - Cont statin (7) Parkinsons Current Visit: Yes Status: Acute Code(s): G20 - PARKINSON'S DISEASE SNOMED Code(s): 71614047 Comment: - Cont Sinemet - May need neuro consult if not reaching baseline as could be progress of his disease - Reassess after PT eval (8) Upper respiratory disease Current Visit: Yes Status: Acute Code(s): J39.9 - DISEASE OF UPPER RESPIRATORY TRACT, UNSPECIFIED SNOMED Code(s): 837513388 Comment: - Improving - No acute findings on chest xray - WBC wnl - Continue supportive care - Encourage incentive spirometer Status and Disposition: Plan for discharge today
[2018-05-24] MEDS: Carbidopa/Levodop 25/100 MG TAB(*) PO SCH ×2 (10:44→12:19)
[2018-05-24] MEDS: Metoprolol Tartrate TAB* 25 MG PO SCH (10:44)
[2018-05-24] MEDS: Aspirin EC TAB* 81 MG TAB.EC PO SCH (10:44)
[2018-05-24] MEDS: Cyanocobalamin TAB* 500 MCG PO SCH (10:44)
[2018-05-24] MEDS: Atorvastatin* 20 MG TAB PO SCH (10:44)
[2018-05-24] MEDS: Insulin LISPRO* 1 UNITS UNIT SUBCUT SCH (10:59)
[2018-05-24 11:45] VITALS: BP 146/78
--- NOTE | 2018-05-24 22:27 | DS ---
CC: Dr. Mohinder Putnam * DISCHARGE SUMMARY: DATE OF ADMISSION: 05/20/18 DATE OF DISCHARGE: 05/24/18 PRIMARY CARE DOCTOR: Dr. Putnam. REASON FOR THE ADMISSION: Weakness, sweating, chills, and cough. HOSPITAL COURSE: This is a 72-year-old male with history of Parkinson disease, diabetes, who was brought into the hospital on 05/20/18 for complaints of bilateral lower weakness, sweating, and chills. In the emergency room, patient was found to have upper respiratory infection, lactic acidosis, and acute kidney injury. Patient was then admitted to the hospital. Patient underwent chest x-ray which did not show any acute pneumonia. Patient also had a CAT scan of the brain done which did not show any acute findings. Patient was admitted to the hospital with IV fluids. Patient's metformin was held due to patient having acute kidney injury. Patient continued to improve clinically; however, his kidney function did not stabilize, but old records that we had in our systems was from 2013, we requested outside labs results which showed the creatinine baseline was 1.4. We also did a renal ultrasound which did not show any acute renal pathology. Patient continued to improve and was decided to discharge the patient home on 05/24/18. CONDITION ON DISCHARGE: Stable. DISCHARGE INSTRUCTIONS: Patient was instructed to follow up with the primary care doctor, Dr. Putnam. The patient was advised to go on a diabetic diet, activity was as tolerated. The patient is to follow up with the PCP. The patient will return to the ER for any fever, chills, worsening cough, chest pain, urinary issues, or if any swelling occurs or if new symptoms occur. DISCHARGE MEDICATIONS: Include: 1. Aspirin 81 mg daily. 2. Atorvastatin 40 mg daily. 3. Carbidopa/levodopa 2 tablets twice a day. 4. Cyanocobalamin 500 mcg daily. 5. Losartan 50 mg daily. 6. Metformin 1000 mg twice daily. 7. Metoprolol 25 mg b.i.d. These are patient's home medications. No new medications were given and no prescriptions were given. PRINCIPAL DIAGNOSES: Include: 1. Viral upper respiratory tract infection. 2. Acute kidney injury/chronic kidney disease. 3. Type 2 diabetes. 4. Lactic acidosis. [id number]/[facility] #: [id number] [facility]
== END 2018-05-24 13:00 | disposition home or self-care (01) | DRG 683 ==
LOC: ED 11:14 → MED 16:18 → OBSVTOIN 05-22 15:45
PROVIDERS: ADMIT Hospitalist; ATTEND Internal Medicine
DX: N17.9 Acute kidney failure, unspecified (principal); E87.2 Acidosis; E11.22 Type 2 diabetes mellitus with diabetic chronic kidney disease; G20 Parkinson's disease; E83.42 Hypomagnesemia; J06.9 Acute upper respiratory infection, unspecified; I12.9 Hypertensive chronic kidney disease with stage 1 through stage 4 chronic kidney disease, or unspecified chronic kidney disease; N18.9 Chronic kidney disease, unspecified; E78.5 Hyperlipidemia, unspecified; Z79.84 Long term (current) use of oral hypoglycemic drugs; Z79.82 Long term (current) use of aspirin; Z79.899 Other long term (current) drug therapy; Z88.0 Allergy status to penicillin; Z82.49 Family history of ischemic heart disease and other diseases of the circulatory system; Z83.3 Family history of diabetes mellitus; Z80.3 Family history of malignant neoplasm of breast; Z80.43 Family history of malignant neoplasm of testis
CPT/HCPCS: 36415; 70450; 71046; 76775; 80048; 80053; 81003; 81015; 82550; 83605; 83735; 83880; 84100; 84484; 85025; 85610; 85730; 86140; 87040; 90686; 90732; 93005; 99284; A9270-GY; G0378; G8978-GP-CK; G8979-GP-CH; J1644; J3475

== ENCOUNTER 2018-08-04 10:42 | Inpatient (IN) | payer MEDICARE, BC ==
--- NOTE | 2018-08-04 11:09 | ED ---
Neurological HPI - HPI Summary HPI Summary: This pt is a 73 y/o male, with hx of Parkinson's, presenting to [facility] referred by Tawanda Arredondo NP neurology for weakness and leaning to the left progressively worsening. reports pt was admitted 4 days ago for the same and was discharged from the hospital 2 days ago (08/02) with neurology outpatient follow up. Pt had several falls over the weekend while in the hospital. has noticed pt had more pronounced leaning to the left, described as "falling to the left," upon arriving home and progressing since Thursday. Per , pt fell carrying a piece of wood since being home. Pt reports rib pain s/p fall at home. Denies head strike or LOC. Denies chest pain or SOB. states since being home she has had to use a belt with pt because pt tilts to the left. Pt has been using a walker since being home but has not been able to ambulate as independently as before. Additionally notes pt has slurred speech, but has been present since hospital stay. Pt states seems may be related to flexeril Pt denies cp, sob. no abd pain. no n/v. Pt with constipation. Pt has an upcoming appointment with Dr. Castillo this Thursday (08/06), however, Tawanda Arredondo NP sends pt in today to have an MRI head/c spine and further eval PMHx includes DM, HTN, Parkinson's. Pt is on baby aspirin. Patient medication reviewed this visit. - History of Current Complaint Chief Complaint: EDNeurologicalDeficit Stated Complaint: FALLING LATELY/PARKINSONS WANTS MRI PER PT Time Seen by Provider: 08/04/18 11:01 Hx Obtained From: Patient, Family/Job Coach/Job Developer - Onset/Duration: Gradual Onset, Started days ago, Still Present Timing: Constant Current Severity: Moderate Neurological Deficit Location: Generalized - leaning to the left Pain Intensity: 0 Pain Scale Used: 0-10 Numeric Character: Other: - leaning to the left Aggravating: Nothing Alleviating: Nothing Associated Signs and Symptoms: Positive: Unsteady Gait - leaning to the left, Pain - rib pain. Negative: Loss of Consciousness, Fever, Chest Pain, Shortness of Breath - Additional Pertinent History Primary Care Physician: [id number] - Allergy/Home Medications Allergies/Adverse Reactions: Allergies Allergy/AdvReac Type Severity Reaction Status Date / Time Penicillins Allergy Unknown Verified 08/04/18 10:53 Reaction Details PMH/Surg Hx/FS Hx/Imm Hx Previously Healthy: No - Parkinson. CVA Endocrine/Hematology History: Reports: Hx Diabetes Denies: Hx Thyroid Disease Cardiovascular History: Reports: Hx Hypertension Denies: Hx Pacemaker/ICD Respiratory History: Denies: Hx Asthma - child, Hx Chronic Obstructive Pulmonary Disease (COPD) GI History: Denies: Hx Ulcer History: Denies: Hx Dialysis, Hx Renal Disease Sensory History: Reports: Hx Contacts or Glasses Denies: Hx Hearing Aid Opthamlomology History: Reports: Hx Contacts or Glasses EENT History: Reports: Other - right detached retina Neurological History: Reports: Other Neuro Impairments/Disorders - Mild Cognitive Impairment, Parkinson's Psychiatric History: Denies: Hx Panic Disorder - Surgical History Surgery Procedure, Year, and Place: 2000 DETACHED RETINA AT [facility] - Immunization History Date of Tetanus Vaccine: w/in last 5 yrs per pt Infectious Disease History: No Infectious Disease History: Denies: Hx Clostridium Difficile, Hx Hepatitis, Hx Human Immunodeficiency Virus (HIV), Hx of Known/Suspected MRSA, Hx Shingles, Hx Tuberculosis, Hx Known/ Suspected VRE, Hx Known/Suspected VRSA, History Other Infectious Disease, Traveled Outside the [place] in Last 30 Days - Family History Known Family History: Positive: Diabetes, Non-Contributory - Social History Lives: With Family Alcohol Use: None Hx Substance Use: No Substance Use Type: Reports: None Hx Tobacco Use: No Smoking Status (MU): Never Smoked Tobacco Review of Systems Negative: Fever Negative: Chest Pain Negative: Shortness Of Breath Musculoskeletal: Other - POS: rib pain Neurological: Other - POS: leaning to the left Positive: Weakness, Slurred Speech All Other Systems Reviewed And Are Negative: Yes Physical Exam - Summary Physical Exam Summary: Vital Signs Reviewed: Yes A+Ox3, no distress Eyes: Conjunctiva Clear, FREDDIE. EOM intact and full ENT: Hearing grossly normal TM x 2 clear, mmoist, uvula midline, no exudate, no erythema Neck: Positive: Supple Respiratory: Positive: No respiratory distress, No accessory muscle use + CTA throughout no w/r + TTP left anterior, lateral ribs no crepitus. no ecchymosis Cardiovascular: RRR nl s1, s2 no m/r CBT <2 sec abd soft + BS nt/nd no guarding, no distension Musculoskeletal Exam: + abduction, flex/ext arms 5/5 grasp 4+ SLE b/l CN 2-12 intact Pt with slight word slurring Neurological: Positive: Alert, + sensation throughout Psychological: Positive: Normal Response To Family Skin: Positive: no rash, no ecchymosis Vital Signs On Initial Exam: Initial Vitals Temp Pulse Resp BP Pulse Ox 98.8 F 86 16 161/93 96 08/04/18 10:51 08/04/18 10:51 08/04/18 10:51 08/04/18 10:51 08/04/18 10:51 Diagnostics - Vital Signs Vital Signs Temp Pulse Resp BP Pulse Ox 08/04/18 10:51 98.8 F 86 16 161/93 96 - Laboratory Result Diagrams: 08/04/18 11:32 08/04/18 11:32 Lab Statement: Any lab studies that have been ordered have been reviewed, and results considered in the medical decision making process. - Radiology Ribs with chest XR Radiology Interpretation Completed By: Radiologist Summary of Radiographic Findings: IMPRESSION: Nondisplaced fractures of the left ninth and 10th ribs without appreciable pneumothorax. There is a small left pleural effusion. Dr. Hinton has reviewed this report. NIH Scale - NIH Scale Level of Consciousness: Alert/Keenly Responsive Ask Patient the Month and His/Her Age: Both Correct Ask Pt to Open/Close Eyes and Assistant County Engineer/Release Non-Paretic Hand: Both Correctly Best Gaze (Only Horizontal Eye Movement): Normal Facial Paresis-Pt to Smile & Close Eyes or Grimace Symmetry: Normal/Symmetrical Motor Function - Right Arm: No Drift-Holds 10 Seconds Motor Function - Left Arm: No Drift-Holds 10 Seconds Motor Function - Right Leg: Drifts LT 10 seconds Motor Function - Left Leg: Drifts LT 10 seconds Limb Ataxia-Must be out of Proportion to Weakness Present: Absent Best Language (Describe Picture, Name Items): No Aphasia Dysarthria (Read Several Words): Slurs Some Words Re-Evaluation - Re-Evaluation First Eval Re-Evaluation Time: 12:08 Comment: I discusssed the plan for admission with and pt. aware may be placed in CDU awaiting MRI Course/Dx - Course Course Of Treatment: Pt with h/o hawainson dx and cva. Pt recently hospitalized , discharge len for recurrent falls. Pt with left side listing. Pt and states falling to left more since Thursday discharge. Pt scheduled to see Dr. Castillo neurology on Thursday. Pt sent to ED for re-eval and MRI head and c spine. Pt also reporting left rib pain since fall earlier this week. No crepitus. pt has been taking Flexeril. None today. will check labs, urine, cxr, rib films. will d/w with hospitalist regarding CDU pending MRI. Will give noon dose carbidopa. Will give APAP, flexeril. pt and comfortable and in agreement with plan - Diagnoses Provider Diagnoses: Falls - Physician Notifications Discussed Care Of Patient With: Gwendolyn Cassidy - hospitalist Time Discussed With Above Provider: 11:52 Instructed by Provider To: Admit As Inpatient - will admit on CDU Discharge - Sign-Out/Discharge Documenting (check all that apply): Patient Departure - Admit to [facility] [place] All imaging exams completed and their final reports reviewed: No Patient Received Moderate/Deep Sedation with Procedure: No - Discharge Plan Condition: Stable Disposition: ADMITTED TO [facility] - Billing Disposition and Condition Condition: STABLE Disposition: Admitted to [facility] - Attestation Statements Document Initiated by Scribe: Yes Documenting Scribe: Veronika Desir Provider For Whom Corwin is Documenting (Include Credential): Olga Hinton MD Scribe Attestation: Veronika Marley, scribed for Olga Hinton MD on 08/05/18 at 1147. Scribe Documentation Reviewed: Yes Provider Attestation: The documentation as recorded by the Veronika bright accurately reflects the service I personally performed and the decisions made by ks, Olga Hinton MD Status of Scribe Document: Viewed
[2018-08-04 11:41] LABS: ABS Basophils 0 10^3/ul (0-0.2); ABS Eosinophils 0 10^3/ul (0-0.6); ABS Lymphocytes 0.9 10^3/ul (1.0-4.8); ABS Monocytes 1.2 10^3/ul (0-0.8); ABS Nucleated RBC 0 10^3/ul; Eosinophil % 0.2 %; Hematocrit 42 % (36-46); Hemoglobin 13.5 g/dL (14.0-18.0); Lymphocyte % 6.7 %; Mean Corpuscular HGB Conc 33 g/dL (31-36); Mean Corpuscular Hemoglobin 29 pg (27-31); Mean Corpuscular Volume 90 fL (80-94); Mean Platelet Volume 9.1 fL (7.4-10.4); Nucleated Red Blood Cells % 0; Platelet Count 337 10^3/uL (150-450); Red Blood Count 4.62 10^6 /uL (4.18-5.48); Red Cell Distribution Width 14 % (10.5-15); White Blood Count 13.1 10^3/uL (3.5-10.8)
[2018-08-04 12:02] LABS: Albumin 4.2 g/dL (3.2-5.2); Albumin/Globulin Ratio 1.4 (1-3); BUN/Creatinine Ratio 19.4 (8-20); Calcium 9.1 mg/dL (8.6-10.3); EGFR African American 51.7 (>60); EGFR Non-African American 42.7 (>60); Magnesium 2.1 mg/dL (1.9-2.7); Potassium 4.2 mmol/L (3.5-5.0); Total Bilirubin 0.6 mg/dL (0.2-1.0); Total Protein 7.2 g/dL (6.4-8.9)
[2018-08-04] MEDS ORDERED: Carbidopa/Levodop 25/100 MG TAB(*) PO ONE (12:06)
[2018-08-04] MEDS ORDERED: Acetaminophen TAB* 325 MG PO ONE (12:10)
[2018-08-04] MEDS ORDERED: Cyclobenzaprine TAB* 10 MG PO ONE (12:10)
[2018-08-04] MEDS ORDERED: Cyclobenzaprine TAB* 10 MG PO PRN (13:32)
[2018-08-04] MEDS ORDERED: Dextrose 50% Syringe 50 ML* 25 GM/50 ML SYRINGE IV PUSH PRN (13:33)
[2018-08-04] MEDS ORDERED: Bisacodyl SUPP* 10 MG SUPP PR PRN (13:39)
[2018-08-04] MEDS ORDERED: Magnesium Hydroxide LIQ* 30 ML UDC PO PRN (13:39)
[2018-08-04] MEDS ORDERED: Senna TAB PO PRN (13:39)
[2018-08-04] MEDS ORDERED: Carbidopa/Levodop 25/100 MG TAB(*) PO SCH ×2 (14:00→21:00)
[2018-08-04] MEDS: Acetaminophen TAB* 325 MG PO PRN (16:02)
[2018-08-04] MEDS: Polyethylene Glycol 3350* 17 GM PACKET PO PRN (16:02)
[2018-08-04 16:53] LABS: Urine Appearance Cloudy; Urine Bacteria 1+ (Absent); Urine Bilirubin Negative (Negative); Urine Blood 1+ (Negative); Urine Color Yellow; Urine Glucose Negative (Negative); Urine Ketones Trace (Negative); Urine Nitrite Negative (Negative); Urine Protein 2+(100 mg/dL) (Negative); Urine Red Blood Cell Trace(0-2/hpf) (Absent); Urine Specific Gravity 1.018 (1.010-1.030); Urine Urobilinogen Negative (Negative); Urine White Blood Cell Trace(0-5/hpf) (Absent)
--- NOTE | 2018-08-04 17:07 | HP ---
CC: Dr. Castillo; Dr. Putnam * HISTORY AND PHYSICAL: DATE OF ADMISSION: 08/04/18 PROVIDER: Lisa Bui NP PRIMARY CARE PROVIDER: Dr. Putnam. ATTENDING PHYSICIAN WHILE IN THE HOSPITAL: Dr. Gwendolyn Cassidy * (dictated by Lisa Bui NP). CHIEF COMPLAINT: Weakness, leaning to the left, falls. HISTORY OF PRESENT ILLNESS: Mr. Anderson is a 73-year-old male with past medical history significant for diabetes, Parkinson disease, hypertension, hyperlipidemia, who was [place] [facility], leaning to the left and falls and discharged on 08/02/18. Due to the progressively worsening weakness and increased falling and progressively worsening leaning to the left, the patient's called their neurologist, who recommended they present to the emergency room for further evaluation. The patient's reports that since his discharge on 08/02/18, he has fallen multiple times. During one of the falls, he did sustain injury to his left ribs and he is scheduled to follow up with neurologist, Dr. Castillo, this week; but, due to the progressively worsening of his symptoms, it was recommended that he present to the emergency room for further evaluation. PAST MEDICAL HISTORY: 1. Parkinson disease. 2. Hypertension. 3. Hyperlipidemia. 4. Atx-[id number] diabetes. PAST SURGICAL HISTORY: 1. Detached retina repair in 2000. 2. Cataract surgery. 3. Appendectomy. ALLERGIES: Allergy to PENICILLIN. FAMILY HISTORY: Noncontributory. SOCIAL HISTORY: The patient denies any tobacco or illicit drug use. He does report occasional alcohol use, 1 to 2 times a week. He is . Surrogate decision maker in the event he is unable to make his own decisions is his . He is a full code. REVIEW OF SYSTEMS: He denies any fever, fatigue, chills. Denies any blurry vision or headache. He does report generalized weakness and leaning to the left. He also reports multiple falls. Complains of lower back pain that is chronic. Denies any cough, hemoptysis or shortness of breath, nausea, vomiting or diarrhea. Denies any abdominal pain. He does report constipation and no bowel movement x5 days. He does report chronic left hand weakness times several months. Denies any dysphagia, arthralgias, myalgias. He does have a laceration to his left head with sutures that are intact. Denies any psychosis or anxiety. PHYSICAL EXAMINATION GENERAL: At this time, Mr. Anderson is a 73-year-old male who is resting on the stretcher in the emergency room. He is alert and oriented x3. Speech is slightly slurred. Thought process is intact. He is in no acute distress. HEENT: He does have a healing laceration to the left side of his head. Eyes: EOMs are intact. Sclerae anicteric and not pale. Oral mucosa appeared to be moist. NECK: Supple. LUNGS: Clear to auscultation bilaterally. No wheezes, rales, or rhonchi. CARDIAC: S1, S2. Regular rate and rhythm. No murmurs, rubs, or gallops. ABDOMEN: Rounded, soft. Bowel sounds are hypoactive x4. EXTREMITIES: He is able to move all 4 extremities. Radial pulses are +2. NEUROLOGIC: He is awake, alert, oriented x3. Speech is slightly slurred. Handgrips are equal. Lower extremity strength is equal. There are no gross focal deficits. He has no hand drift, no arm drift. Smile is equal. Tongue is midline. No facial asymmetry is noted. SKIN: He does have a healing laceration noted to the left side of his head. DIAGNOSTIC STUDIES/LAB DATA: WBCs were 13.1, RBCs 4.62, hemoglobin 13.5, hematocrit was 42, platelet count was 337. Sodium 134, potassium 4.3, chloride 102, carbon dioxide was 23, anion gap was 9, BUN was 31, creatinine 1.60, glucose was 120, magnesium 2.1. ASTs were 17, ALTs were 6, alkaline phosphatase was 73. Urine is currently pending. He had a chest x-ray, radiologist's impression: Nondisplaced fractures of the left 9th and 10th ribs without appreciable pneumothorax. There is a small left pleural effusion. ASSESSMENT AND PLAN: Mr. Anderson is a 73-year-old male who presented to the emergency room with complaints of progressively worsening weakness, progressively worsening leaning to the left, and multiple falls. We were asked to see and evaluate him due to these symptoms. He will be admitted under observation status for: 1. Mechanical falls. I suspect this is likely related to his Parkinson disease and baseline gait dysfunction. We will consult Neurology due to his progressive weakness and progressive leaning to the left. We will continue his Sinemet as previously prescribed. He is scheduled to have an MRI of the brain and MRI of the neck, which is currently pending. I am also going to place a consult to [facility] for inpatient rehab versus short-term rehab as the patient failed outpatient treatment recently and continues to have falls, now sustaining left rib fractures. 2. Left 9th and 10th rib fractures. I will encourage deep breathing. I will give him an incentive spirometer and he can have pain medications as needed. 3. Hypertension. I will continue on his home medications of metoprolol and losartan as previously prescribed. 4. Hyperlipidemia. Continue on atorvastatin. 5. Diabetes. I am going to hold his metformin and place him on a lispro sliding scale with a consistent carb diet. 6. DVT prophylaxis: I will place him on heparin subcu. 7. FEN: He can have a consistent carb diet. 8. Disposition: He will be admitted to observation to the medical floor. TIME SPENT: Time spent on this admission was 60 minutes, greater than half that time was spent [id number] with the patient obtaining my history and physical, the other half of the time was spent going over my plan of care and implementing my plan of care. I have discussed this with my attending, Dr. Gwendolyn Cassidy; she is in agreement with my plan. LISA BUI, COLE [id number]/[facility] #: [id number] MICHEL
[2018-08-04] MEDS: Heparin VIAL(*) 5000 UNITS/ML VIAL (FIVE THOUSAND) SUBCUT SCH ×2 (17:19→21:46)
[2018-08-04] MEDS: Insulin LISPRO* 1 UNITS UNIT SUBCUT SCH ×2 (17:19→21:46)
--- NOTE | 2018-08-04 20:31 | CONS ---
NEUROLOGY CONSULTATION NOTE: DATE OF CONSULT: 08/04/18 CONSULTING PROVIDER: Lisa Bui NP REASON FOR CONSULT: Falls. CHIEF COMPLAINT: Falls. HISTORY OF PRESENT ILLNESS: Mr. Javan Anderson is a 73-year-old man with history of parkinsonism since 2011 who was recently admitted to [facility] on 07/30/18 for increased falls. The patient was extensively evaluated by Dr. Cabello as well as by myself on 08/02/18. 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 The patient was discharged with the recommendation to follow up with Dr. Castillo and Dr. Cassidy had ordered the MRI of the cervical and MRI of the brain without contrast since the patient was cleared by physical therapy to go home. The patient over the last 48 hours had had increasing falls. His spouse contacted the clinic last night with concerns that the patient is deviating more towards the left side. The patient had 2 falls yesterday, 1 hitting his head. He did not lose consciousness. The patient was readmitted to [facility] last night. He had an MRI of the brain without contrast completed on 08/04/18 that showed no acute intracranial abnormality or areas of restricted diffusion to suspect an acute stroke. He does have a mildly disproportionate prominence of the ventricle, then I think it is slightly proportional with a cerebral atrophy. He does not have the triad of normal pressure hydrocephalus. His gait is more shuffled rather than a magnetic gait when evaluated over the last few days. Also, there are scattered foci of elevated T2/FLAIR signal in the periventricular and subcortical white matter which are nonspecific and suggest chronic small vessel ischemic changes. I do appreciate on the sagittal MRI significant atrophy of the brain stem, particularly the mid brain and fam. There is the appearance of a hummingbird sign. I personally contacted Dr. Damián Monroy, who will reevaluate the MRI of the brain and contact me with any new changes. The MRI of the cervical spine was also obtained. There is evidence of degenerative disk disease and osteoarthritis with mild multilevel neuroforaminal narrowing but no significant central canal stenosis. The patient's laboratory data showed a WBC of 13,000, hemoglobin of 13, hematocrit of 42, platelets of 337, sodium level of 134, creatinine of 1.60, BUN of 31, glucose of 120. Urinalysis showed no evidence of pyuria. The patient denied any focal weakness or tremors. He denied any paraesthesias. He is noticing that he is leaning more towards the left side and had placed a pillow under the left arm to prevent any bruising. The patient is well cognisant and informed me that he is concerned that he may have this diagnosis of PSP. He assured with me today that assessment that he had by Dr. Salazar as well as other providers from the [facility]. He was concerned about this condition and was told that he may have PSP in the past. PAST MEDICAL HISTORY: Parkinsonism, hypertension, dyslipidemia, non-insulin diabetes mellitus. PAST SURGICAL HISTORY: Detached retina was repaired in 2000 and history of appendectomy. MEDICATIONS: 1. Aspirin 81 mg daily. 2. Cyanocobalamin 500 mcg p.o. daily. 3. Atorvastatin 20 mg p.o. daily. 4. Losartan 100 mg p.o. daily. 5. Metformin 1000 mg p.o. b.i.d. 6. Metoprolol 25 mg p.o. b.i.d. 7. Carbidopa/levodopa 25/100 3 tabs p.o. daily. 8. Carbidopa/levodopa 25/100 2 tabs p.o. daily. 9. Carbidopa/levodopa 25/100 2 tabs p.o. at bedtime. 10. Flexeril 10 mg p.o. b.i.d. p.r.n. FAMILY HISTORY: No family history of stroke or seizure. SOCIAL HISTORY: The patient lives with his spouse. He denied any tobacco or alcohol use. REVIEW OF SYSTEMS: A 14-point review of systems was obtained and otherwise negative except for what is mentioned in the HPI. PHYSICAL EXAMINATION: Vital Signs: Temperature of 97.7, pulse of 71, respiratory rate of 18, oxygen saturation 96, blood pressure 153/78. The patient is awake, alert, oriented to person, place and time. General: Well- nourished, well- developed man, in no acute distress. Head: There is a slight bruising and laceration in the left skull region suggestive of a old head injury. Neck is supple. Chest: Clear to auscultation bilaterally. Cardiovascular: Regular rate and rhythm without any murmurs. Extremities: No clubbing or cyanosis. Neurological Examination: Awake, alert, and oriented to person, place, time, and general circumstances. Speech is fluent but he does have mild hypophonia. Cranial Nerves: Pupil equal, round, and reactive to light, extraocular muscles intact, no facial asymmetry. Sensation is intact in bilateral face. Tongue is symmetrical and midline. 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 Extrapyramidal stooped posture, masked facies. No tremors or cogwheeling. He is tilted towards the left side. Motor: 4/5 weakness in the upper proximal and distal upper extremity in the pyramidal distribution but 5/5 strength throughout. Sensation is intact to light touch, pinprick bilaterally. He does have extensive plantar response in left, 2+ reflex in left and 1+ on the right. [id number], rapid alternating movement intact. Gait: Spastic gait on the left. Ambulates with the walker. ASSESSMENT/RECOMMENDATIONS: Mr. Anderson is a 73-year-old man with parkinsonism , who I suspect has progressive neurodegenerative disorder, specifically progressive supranuclear palsy. He has the typical characteristic features of parkinsonism and vertical gaze palsy . It is unclear to why the patient has a mild left hemiparesis and he is deviating towards the left side. Given that he has no evidence of either acute or old cortical infarction nor does he have any evidence of severe spinal cord disease. He may have asymmetric atrophy in the cerebral hemisphere, as I could see more dilatation of the right ventricles when compared to the left, this would correlate with an asymmetric weakness on the contralateral side. I do not think the Sinemet is working as it typically is ineffective in parkinsonism. However, in the meantime, we can continue Sinemet at this time and wean him off as an outpatient. The patient unfortunately has an irreversible neurodegenerative disorder. He may benefit from short-term rehabilitation but I did discuss with him today the necessity of being used to utilizing a wheelchair to minimize any further falls as he has clearly been falling a lot over the last few weeks. Please obtain orthostatic vitals. Continue the Sinemet and the Flexeril at this point. I contacted the patient's spouse but there was no one available to answer the phone. However, I will be more than happy to meet with the patient's spouse tomorrow and discuss the MRI findings. Continue neuro checks every 4 hours. The patient will continue diet as tolerated. Please perform a bedside swallow evaluation to make sure the patient' s swallowing function is not impaired. Continue supportive care. No further neurological recommendation. Please contact me for any questions or concerns. TIME SPENT: I spent a total of 70 minutes of which greater than 50% was spent obtaining history, examining the patient, and discussing the radiological image results. We also spent time discussing the differences between Parkinson's disease and parkinsonism and PSP. The patient verbalized understanding. Addendum: Dr. Monroy agreed with the midbrain atrophy and an addendum to the report has been added. [id number]/CPS #: [id number] MTDD
[2018-08-04] MEDS: Magnesium Hydroxide LIQ* 30 ML UDC PO SCH (21:44)
[2018-08-04] MEDS: Metoprolol Tartrate TAB* 25 MG PO SCH (21:46)
[2018-08-04] MEDS: Docusate CAP* 100 MG PO SCH (21:46)
[2018-08-05] MEDS: Heparin VIAL(*) 5000 UNITS/ML VIAL (FIVE THOUSAND) SUBCUT SCH ×3 (05:06→21:12)
[2018-08-05] MEDS ORDERED: Carbidopa/Levodop 25/100 MG TAB(*) PO SCH ×2 (08:00→12:00)
[2018-08-05] MEDS: Insulin LISPRO* 1 UNITS UNIT SUBCUT SCH ×4 (08:03→21:12)
[2018-08-05] MEDS: Acetaminophen TAB* 325 MG PO PRN (08:13)
[2018-08-05] MEDS: Losartan TAB* 25 MG PO SCH (08:14)
[2018-08-05] MEDS: Cyanocobalamin TAB* 500 MCG PO SCH (08:15)
[2018-08-05] MEDS: Aspirin EC TAB* 81 MG TAB.EC PO SCH (08:15)
[2018-08-05] MEDS: Docusate CAP* 100 MG PO SCH ×2 (08:15→21:10)
[2018-08-05] MEDS: Metoprolol Tartrate TAB* 25 MG PO SCH ×2 (08:15→21:11)
[2018-08-05] MEDS: Magnesium Hydroxide LIQ* 30 ML UDC PO SCH ×2 (08:16→21:12)
[2018-08-05] MEDS: Atorvastatin* 20 MG TAB PO SCH (08:16)
[2018-08-05] MEDS: Cyclobenzaprine TAB* 10 MG PO PRN ×2 (13:40→21:10)
--- NOTE | 2018-08-05 15:09 | PN ---
Subjective Date of Service: 08/05/18 Interval History: Seen with at bedside Feels around baseline. Anxious to hear results from brain MRI which I discussed in conjunction with Dr. Velásquez Objective Active Medications: Acetaminophen (Tylenol Tab*) 650 mg PO Q4H PRN PRN Reason: FEVER/PAIN Last Admin: 08/05/18 08:13 Dose: 650 mg Aspirin (Aspirin Ec Tab*) 81 mg PO DAILY [facility] Last Admin: 08/05/18 08:15 Dose: 81 mg Atorvastatin Calcium (Lipitor*) 20 mg PO DAILY [facility] Last Admin: 08/05/18 08:16 Dose: 20 mg Bisacodyl (Dulcolax Supp*) 10 mg [place] DAILY PRN PRN Reason: CONSTIPATION Last Admin: 08/04/18 18:57 Dose: 10 mg Carbidopa/Levodopa (Sinemet 25/100 Tab(*)) 2 tab PO TID [facility] Cyanocobalamin (Vitamin B12 Tab*) 500 mcg PO DAILY [facility] Last Admin: 08/05/18 08:15 Dose: 500 mcg Cyclobenzaprine HCl (Flexeril Tab*) 5 mg PO BID PRN PRN Reason: SPASMS Last Admin: 08/05/18 13:40 Dose: 5 mg Dextrose (D50w Syringe 50 Ml*) 12.5 gm IV PUSH .FOR FS < 60 - SS PRN PRN Reason: FS < 60 Docusate Sodium (Colace Cap*) 100 mg PO BID [facility] Last Admin: 08/05/18 08:15 Dose: 100 mg Heparin Sodium (Porcine) (Heparin Vial(*)) 5,000 units SUBCUT Q8HR [facility] Last Admin: 08/05/18 13:40 Dose: 5,000 units Insulin Human Lispro (Humalog*) 0 units SUBCUT ACHS [facility]; Protocol Last Admin: 08/05/18 12:14 Dose: 2 units Losartan Potassium (Cozaar Tab*) 100 mg PO DAILY [facility] Last Admin: 08/05/18 08:14 Dose: 100 mg Magnesium Hydroxide (Milk Of Magnesia Liq*) 30 ml PO BID [facility] Last Admin: 08/05/18 08:16 Dose: 30 ml Magnesium Hydroxide (Milk Of Magnesia Liq*) 30 ml PO BID PRN PRN Reason: CONSTIPATION Metoprolol Tartrate (Lopressor Tab*) 25 mg PO BID [facility] Last Admin: 08/05/18 08:15 Dose: 25 mg Polyethylene Glycol/Electrolytes (Miralax*) 17 gm PO DAILY PRN PRN Reason: CONSTIPATION Last Admin: 08/04/18 16:02 Dose: 17 gm Senna (Senokot Tab*) 1 tab PO BEDTIME PRN PRN Reason: CONSTIPATION Vital Signs - 8 hr 08/05/18 08/05/18 08/05/18 08:10 11:59 13:40 Temperature 98.2 F 97.8 F Pulse Rate 73 65 Respiratory 14 16 18 Rate Blood Pressure 150/78 136/79 (mmHg) O2 Sat by Pulse 96 97 Oximetry Oxygen Devices in Use Now: None Appearance: sitting in chair, NAD Eyes: No Scleral Icterus, PERRLA Ears/Nose/Mouth/Throat: Mucous Membranes Moist Neck: NL Appearance and Movements; NL JVP, Trachea Midline Respiratory: Symmetrical Chest Expansion and Respiratory Effort, Clear to Auscultation Cardiovascular: RRR Skin: - - healing laceration left cranium Neurological: Alert and Oriented x 3, - - absent upward gaze b/l, subtle left facial weakness, b/l pronator drift Result Diagrams: 08/04/18 11:32 08/04/18 11:32 Assess/Plan/Problems-Billing Assessment: 73 yo M h/o suspected parkinson dz, htn, DM2 p/w progressive increase in falls - Patient Problems (1) Falls Comment: Constillation of findings (including vertical gaze palsy and MRI) suggest progressive supernuclear palsy (PSP) more than parkinsons dz Discussed progressive nature of dz I agree rehab would help optimize strength coordination in order to avoid falls (2) Parkinson disease Comment: More likely PSP (see above) Remain inpatient to start decreasing sinemet today (decrease to 2 tabs TID) (3) Diabetes Comment: metformin stopped on admission recheck creatinine tomorrow c/w lispro SS until then (4) DVT prophylaxis Comment: HSQ
--- NOTE | 2018-08-05 16:43 | PN ---
Subjective Date of Service: 08/05/18 Length of Stay: 1 Days Neurology is following for parkinsonism. Interval History: He is understanding about his condition. He has no complaints but questions about the final diagnosis and if it has been reached. He is not tilting towards the left as much. He was able to feed himself. He denied any tremors. Review of Systems: Denied CP, SOB, or palpitations. Objective Active Medications: Acetaminophen (Tylenol Tab*) 650 mg PO Q4H PRN PRN Reason: FEVER/PAIN Last Admin: 08/05/18 08:13 Dose: 650 mg Aspirin (Aspirin Ec Tab*) 81 mg PO DAILY [facility] Last Admin: 08/05/18 08:15 Dose: 81 mg Atorvastatin Calcium (Lipitor*) 20 mg PO DAILY [facility] Last Admin: 08/05/18 08:16 Dose: 20 mg Bisacodyl (Dulcolax Supp*) 10 mg [place] DAILY PRN PRN Reason: CONSTIPATION Last Admin: 08/04/18 18:57 Dose: 10 mg Carbidopa/Levodopa (Sinemet 25/100 Tab(*)) 2 tab PO TID [facility] Cyanocobalamin (Vitamin B12 Tab*) 500 mcg PO DAILY [facility] Last Admin: 08/05/18 08:15 Dose: 500 mcg Cyclobenzaprine HCl (Flexeril Tab*) 5 mg PO BID PRN PRN Reason: SPASMS Last Admin: 08/05/18 13:40 Dose: 5 mg Dextrose (D50w Syringe 50 Ml*) 12.5 gm IV PUSH .FOR FS < 60 - SS PRN PRN Reason: FS < 60 Docusate Sodium (Colace Cap*) 100 mg PO BID [facility] Last Admin: 08/05/18 08:15 Dose: 100 mg Heparin Sodium (Porcine) (Heparin Vial(*)) 5,000 units SUBCUT Q8HR [facility] Last Admin: 08/05/18 13:40 Dose: 5,000 units Insulin Human Lispro (Humalog*) 0 units SUBCUT ACHS [facility]; Protocol Last Admin: 08/05/18 12:14 Dose: 2 units Losartan Potassium (Cozaar Tab*) 100 mg PO DAILY [facility] Last Admin: 08/05/18 08:14 Dose: 100 mg Magnesium Hydroxide (Milk Of Magnesia Liq*) 30 ml PO BID [facility] Last Admin: 08/05/18 08:16 Dose: 30 ml Magnesium Hydroxide (Milk Of Magnesia Liq*) 30 ml PO BID PRN PRN Reason: CONSTIPATION Metoprolol Tartrate (Lopressor Tab*) 25 mg PO BID [facility] Last Admin: 08/05/18 08:15 Dose: 25 mg Polyethylene Glycol/Electrolytes (Miralax*) 17 gm PO DAILY PRN PRN Reason: CONSTIPATION Last Admin: 08/04/18 16:02 Dose: 17 gm Senna (Senokot Tab*) 1 tab PO BEDTIME PRN PRN Reason: CONSTIPATION Vital Signs 08/05/18 08/05/18 15:44 16:04 Temperature 98.2 F Pulse Rate 73 Respiratory 18 Rate Blood Pressure 121/69 (mmHg) O2 Sat by Pulse 96 Oximetry Intake and Output Last 24 Hours 08/03/18 08/04/18 08/05/18 08/06/18 06:59 06:59 06:59 06:59 Intake Total 240 390 Output Total 420 600 Balance -180 -210 Weight 202 lb Intake: Oral 240 390 Output: Urine 420 600 Other: # Voids 2 Oxygen Devices in Use Now: None Neurology Exam: General: Chronically frail and ill appearing man who is sitting comfortable in no distress. HEENT: Normocephelic/atraumatic, sclera anicteric, mucous membranes moist Neck: Supple Extremities: No clubbing, cyanosis, or edema Neurological Findings: Awake, alert, and oriented to person, place, and time. Speech: fluent without dysarthria, repetition intact. He has hypophonia. Extrapyramidal: masked facies and bradykinesia. Cranial Nerve: PERRL, EOM intact except for impaired upgaze, mild left facial droop and widening of the palpebral fissure Motor: s/s throughout, proximal and distal extremities x4 tone/bulk normal Sensation: intact to LT/PP bilaterally upper and lower extremities Finger to nose, rapid alternating movements intact without tremor Result Diagrams: 08/04/18 11:32 08/04/18 11:32 Microbiology and Other Data: Microbiology 08/04/18 16:20 Urine Culture - Final Urine No Growth (<1,000 CFU/mL) Assessment/Plan 1. Parkinsonism with vertical gaze palsy and MRI abnormality for brainstem ( predominately midbrain) atrophy- these findings are suggestive of progressive supranuclear palsy. Recommendations: - Reduced the Sinemet 25/100 mg to 2 tablets three times daily. He should slowly wean off the Sinemet since it is ineffective in this condition. He will discuss this with Dr. Castillo. - Continue supportive care - Spent 25 minutes counseling the patient and Mrs. Anderson about the diagnosis and the increase risk for falls with this condition. We discussed having a wheel chair around if he needs to walk long distances. - The family would like to meet with Dr. Castillo to see what his opinion is about this diagnosis. - Follow-up with Dr. Castillo on August 26, 2018.
[2018-08-05] MEDS: Carbidopa/Levodop 25/100 MG TAB(*) PO SCH (21:11)
[2018-08-06] MEDS: Heparin VIAL(*) 5000 UNITS/ML VIAL (FIVE THOUSAND) SUBCUT SCH ×3 (05:00→20:08)
[2018-08-06 06:01] LABS: Calcium 8.3 mg/dL (8.6-10.3); EGFR African American 60.8 (>60); EGFR Non-African American 50.2 (>60); Potassium 4.6 mmol/L (3.5-5.0)
[2018-08-06] MEDS: Insulin LISPRO* 1 UNITS UNIT SUBCUT SCH ×2 (07:53→13:14)
[2018-08-06] MEDS: Magnesium Hydroxide LIQ* 30 ML UDC PO SCH ×2 (08:45→20:08)
[2018-08-06] MEDS: Carbidopa/Levodop 25/100 MG TAB(*) PO SCH ×3 (08:46→20:07)
[2018-08-06] MEDS: Docusate CAP* 100 MG PO SCH ×2 (08:46→20:07)
[2018-08-06] MEDS: Cyanocobalamin TAB* 500 MCG PO SCH (08:46)
[2018-08-06] MEDS: Cyclobenzaprine TAB* 10 MG PO PRN ×2 (08:46→20:07)
[2018-08-06] MEDS: Losartan TAB* 25 MG PO SCH (08:46)
[2018-08-06] MEDS: Atorvastatin* 20 MG TAB PO SCH (08:49)
[2018-08-06] MEDS: Aspirin EC TAB* 81 MG TAB.EC PO SCH (08:49)
[2018-08-06] MEDS: Metoprolol Tartrate TAB* 25 MG PO SCH ×2 (08:49→20:07)
[2018-08-06] MEDS: Acetaminophen TAB* 325 MG PO PRN (08:50)
--- NOTE | 2018-08-06 15:28 | PN ---
Subjective Date of Service: 08/06/18 Length of Stay: 2 Days Neurology is following for falls. Interval History: He has not had any falls since being admitted to the hospital. His activity here is restricted and he is typically up and moving around doing tasks at home. He has walked with me and PT and seems back to his baseline. He still has gradual worsening of left sided weakness, mostly dragging the left leg when ambulating. He has chronic back pain. He mentioned to me that he always has reduced strength in the left side. He is down to Sinemet 2 tablets every 8h with no change in his gait or examination finding. 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 There is also incidental finding of asymmetric ankylosis of the sacroiliac joints. Review of Systems: Denied CP, SOB, or palpitations. Objective Active Medications: Acetaminophen (Tylenol Tab*) 650 mg PO Q4H PRN PRN Reason: FEVER/PAIN Last Admin: 08/06/18 08:50 Dose: 650 mg Aspirin (Aspirin Ec Tab*) 81 mg PO DAILY [facility] Last Admin: 08/06/18 08:49 Dose: 81 mg Atorvastatin Calcium (Lipitor*) 20 mg PO DAILY [facility] Last Admin: 08/06/18 08:49 Dose: 20 mg Bisacodyl (Dulcolax Supp*) 10 mg [place] DAILY PRN PRN Reason: CONSTIPATION Last Admin: 08/04/18 18:57 Dose: 10 mg Carbidopa/Levodopa (Sinemet 25/100 Tab(*)) 2 tab PO TID [facility] Last Admin: 08/06/18 13:14 Dose: 2 tab Cyanocobalamin (Vitamin B12 Tab*) 500 mcg PO DAILY [facility] Last Admin: 08/06/18 08:46 Dose: 500 mcg Cyclobenzaprine HCl (Flexeril Tab*) 5 mg PO BID PRN PRN Reason: SPASMS Last Admin: 08/06/18 08:46 Dose: 5 mg Dextrose (D50w Syringe 50 Ml*) 12.5 gm IV PUSH .FOR FS < 60 - SS PRN PRN Reason: FS < 60 Docusate Sodium (Colace Cap*) 100 mg PO BID [facility] Last Admin: 08/06/18 08:46 Dose: 100 mg Heparin Sodium (Porcine) (Heparin Vial(*)) 5,000 units SUBCUT Q8HR [facility] Last Admin: 08/06/18 13:14 Dose: 5,000 units Insulin Human Lispro (Humalog*) 0 units SUBCUT ACHS [facility]; Protocol Last Admin: 08/06/18 13:14 Dose: 1 units Losartan Potassium (Cozaar Tab*) 100 mg PO DAILY [facility] Last Admin: 08/06/18 08:46 Dose: 100 mg Magnesium Hydroxide (Milk Of Magnesia Liq*) 30 ml PO BID [facility] Last Admin: 08/06/18 08:45 Dose: 30 ml Magnesium Hydroxide (Milk Of Magnesia Liq*) 30 ml PO BID PRN PRN Reason: CONSTIPATION Metoprolol Tartrate (Lopressor Tab*) 25 mg PO BID [facility] Last Admin: 08/06/18 08:49 Dose: 25 mg Polyethylene Glycol/Electrolytes (Miralax*) 17 gm PO DAILY PRN PRN Reason: CONSTIPATION Last Admin: 08/04/18 16:02 Dose: 17 gm Senna (Senokot Tab*) 1 tab PO BEDTIME PRN PRN Reason: CONSTIPATION Vital Signs 08/05/18 08/05/18 08/05/18 15:44 16:04 21:10 Temperature 98.2 F Pulse Rate 73 Respiratory 18 22 Rate Blood Pressure 121/69 (mmHg) O2 Sat by Pulse 96 Oximetry 08/05/18 08/05/18 08/06/18 21:13 23:27 00:32 Temperature 98.1 F 97.9 F Pulse Rate 58 Respiratory 18 16 Rate Blood Pressure 132/68 158/83 (mmHg) O2 Sat by Pulse 96 97 Oximetry 08/06/18 08/06/18 08/06/18 05:43 08:38 08:46 Temperature 97.6 F 97.9 F Pulse Rate 61 65 Respiratory 16 20 18 Rate Blood Pressure 142/77 134/76 (mmHg) O2 Sat by Pulse 94 94 Oximetry 08/06/18 08/06/18 11:29 12:58 Temperature 97.3 F Pulse Rate 65 Respiratory 16 18 Rate Blood Pressure 143/84 (mmHg) O2 Sat by Pulse 97 Oximetry Intake and Output Last 24 Hours 08/04/18 08/05/18 08/06/18 03/23/19 06:59 06:59 06:59 06:59 Intake Total 029 559 1729 Output Total 420 600 900 Balance -180 -170 500 Weight 202 lb Intake: Oral 319 734 7446 Output: Urine 420 600 900 Other: # Voids 2 Oxygen Devices in Use Now: None Neurology Exam: General: Chronically frail and ill appearing man who is sitting comfortable in no distress. HEENT: Normocephelic/atraumatic, sclera anicteric, mucous membranes moist Neck: Supple Extremities: No clubbing, cyanosis, or edema. There is some atrophy in the anterior and posterior compartment of the right leg. Neurological Findings: Awake, alert, and oriented to person, place, and time. Speech: fluent without dysarthria, repetition intact. He has hypophonia. Extrapyramidal: masked facies and bradykinesia. Cranial Nerve: PERRL, EOM intact except for impaired upgaze, mild left facial droop and widening of the palpebral fissure Motor: s/s throughout, proximal and distal extremities x4 tone/bulk normal Sensation: intact to LT/PP bilaterally upper and lower extremities Finger to nose, rapid alternating movements intact without tremor Gait: bradykinesia. Loss of arm swing bilaterally. He shuffles the left leg when ambulating. Result Diagrams: 08/04/18 11:32 08/06/18 05:00 Microbiology and Other Data: Microbiology 08/04/18 16:20 Urine Culture - Final Urine No Growth (<1,000 CFU/mL) Assessment/Plan 1. Parkinsonism with vertical gaze palsy and MRI abnormality for brainstem ( predominately midbrain) atrophy- these findings are suggestive of progressive supranuclear palsy. 2. 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 Mild left hemiparesis- he does have evidence of right>left cortical atrophy which I suspect explains the examination finding. To complete the work-up and exclude any severe neural foraminal disease on the left lumbar/sacral spine, I have ordered an MRI of the L spine for further evaluation. Plus the patient is complaining of back pain after the fall, it would be helpful to also rule out any acute worsening of the spondylosis. Recommendations: - Continue the same Sinemet dose of 25/100 two tablets three times daily. They can discuss slowly weaning the Sinemet in the outpatient setting - MRI L spine without contrast to evaluate for any worsening of spondylosis after the recent fall - Neuro checks every 4 hours - Pending a bed in [facility] - Dr. Castillo will be covering the neurology service starting tomorrow. Please contact us for any questions or concerns. Time spent: 25 minutes of which greater than 50% was spent examining the patient and discussing the plan as mentioned above.
--- NOTE | 2018-08-06 16:24 | PN ---
Subjective Date of Service: 08/06/18 Interval History: notes no change with decreased dose of sinemet no falls while in patient no MANCERA Intermittent lower back pain Objective Active Medications: Acetaminophen (Tylenol Tab*) 650 mg PO Q4H PRN PRN Reason: FEVER/PAIN Last Admin: 08/06/18 08:50 Dose: 650 mg Aspirin (Aspirin Ec Tab*) 81 mg PO DAILY [facility] Last Admin: 08/06/18 08:49 Dose: 81 mg Atorvastatin Calcium (Lipitor*) 20 mg PO DAILY [facility] Last Admin: 08/06/18 08:49 Dose: 20 mg Bisacodyl (Dulcolax Supp*) 10 mg [place] DAILY PRN PRN Reason: CONSTIPATION Last Admin: 08/04/18 18:57 Dose: 10 mg Carbidopa/Levodopa (Sinemet 25/100 Tab(*)) 2 tab PO TID [facility] Last Admin: 08/06/18 13:14 Dose: 2 tab Cyanocobalamin (Vitamin B12 Tab*) 500 mcg PO DAILY [facility] Last Admin: 08/06/18 08:46 Dose: 500 mcg Cyclobenzaprine HCl (Flexeril Tab*) 5 mg PO BID PRN PRN Reason: SPASMS Last Admin: 08/06/18 08:46 Dose: 5 mg Dextrose (D50w Syringe 50 Ml*) 12.5 gm IV PUSH .FOR FS < 60 - SS PRN PRN Reason: FS < 60 Docusate Sodium (Colace Cap*) 100 mg PO BID [facility] Last Admin: 08/06/18 08:46 Dose: 100 mg Heparin Sodium (Porcine) (Heparin Vial(*)) 5,000 units SUBCUT Q8HR [facility] Last Admin: 08/06/18 13:14 Dose: 5,000 units Insulin Human Lispro (Humalog*) 0 units SUBCUT ACHS [facility]; Protocol Last Admin: 08/06/18 13:14 Dose: 1 units Losartan Potassium (Cozaar Tab*) 100 mg PO DAILY [facility] Last Admin: 08/06/18 08:46 Dose: 100 mg Magnesium Hydroxide (Milk Of Magnesia Liq*) 30 ml PO BID [facility] Last Admin: 08/06/18 08:45 Dose: 30 ml Magnesium Hydroxide (Milk Of Magnesia Liq*) 30 ml PO BID PRN PRN Reason: CONSTIPATION Metoprolol Tartrate (Lopressor Tab*) 25 mg PO BID [facility] Last Admin: 08/06/18 08:49 Dose: 25 mg Polyethylene Glycol/Electrolytes (Miralax*) 17 gm PO DAILY PRN PRN Reason: CONSTIPATION Last Admin: 08/04/18 16:02 Dose: 17 gm Senna (Senokot Tab*) 1 tab PO BEDTIME PRN PRN Reason: CONSTIPATION Vital Signs - 8 hr 08/06/18 08/06/18 08/06/18 08:38 08:46 11:29 Temperature 97.9 F Pulse Rate 65 Respiratory 20 18 16 Rate Blood Pressure 134/76 (mmHg) O2 Sat by Pulse 94 Oximetry 08/06/18 12:58 Temperature 97.3 F Pulse Rate 65 Respiratory 18 Rate Blood Pressure 143/84 (mmHg) O2 Sat by Pulse 97 Oximetry Oxygen Devices in Use Now: None Appearance: sitting in chair Eyes: No Scleral Icterus, PERRLA Ears/Nose/Mouth/Throat: NL Teeth, Lips, Gums, Clear Oropharnyx Neck: NL Appearance and Movements; NL JVP, Trachea Midline Respiratory: Symmetrical Chest Expansion and Respiratory Effort, Clear to Auscultation Cardiovascular: NL Sounds; No Murmurs; No JVD, RRR Abdominal: NL Sounds; No Tenderness; No Distention, No Hepatosplenomegaly Extremities: No Edema Neurological: Alert and Oriented x 3, - - vertical gaze palsy Result Diagrams: 08/04/18 11:32 08/06/18 05:00 Microbiology and Other Data: Microbiology 08/04/18 16:20 Urine Culture - Final Urine No Growth (<1,000 CFU/mL) Assess/Plan/Problems-Billing 73 yo M h/o 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, HTN, DM2 p/w increased falls in setting of worsening neurodegenerative dz - Patient Problems (1) Falls Comment: Constillation of findings (including vertical gaze palsy and MRI) suggest progressive supernuclear palsy (PSP) more than parkinsons dz Discussed progressive nature of dz I agree rehab would help optimize strength coordination in order to avoid falls check MRI l-spine given noted left sided weakness (2) Parkinson disease Comment: More likely PSP (see above) Remain inpatient to start decreasing sinemet today (decrease to 2 tabs TID) (3) Diabetes Comment: metformin restarted 08/06 d/c lispro ss (4) DVT prophylaxis Comment: HSQ
[2018-08-06] MEDS: Polyethylene Glycol 3350* 17 GM PACKET PO PRN (17:14)
[2018-08-06] MEDS: metFORMIN* 1,000 MG TAB PO SCH (20:07)
[2018-08-07] MEDS: Heparin VIAL(*) 5000 UNITS/ML VIAL (FIVE THOUSAND) SUBCUT SCH ×3 (05:22→22:27)
[2018-08-07] MEDS: Cyclobenzaprine TAB* 10 MG PO PRN (08:29)
[2018-08-07] MEDS: Magnesium Hydroxide LIQ* 30 ML UDC PO SCH ×2 (08:30→22:34)
[2018-08-07] MEDS: Metoprolol Tartrate TAB* 25 MG PO SCH ×2 (08:30→22:27)
[2018-08-07] MEDS: Carbidopa/Levodop 25/100 MG TAB(*) PO SCH ×3 (08:30→22:27)
[2018-08-07] MEDS: metFORMIN* 1,000 MG TAB PO SCH ×2 (08:30→22:27)
[2018-08-07] MEDS: Cyanocobalamin TAB* 500 MCG PO SCH (08:30)
[2018-08-07] MEDS: Docusate CAP* 100 MG PO SCH ×2 (08:30→22:27)
[2018-08-07] MEDS: Atorvastatin* 20 MG TAB PO SCH (08:31)
[2018-08-07] MEDS: Losartan TAB* 25 MG PO SCH (08:31)
[2018-08-07] MEDS: Aspirin EC TAB* 81 MG TAB.EC PO SCH (08:31)
--- NOTE | 2018-08-07 15:39 | PN ---
Subjective Date of Service: 08/07/18 Interval History: Seen with at bedside No BM in days No change in gait, would like to walk more Objective Active Medications: Acetaminophen (Tylenol Tab*) 650 mg PO Q4H PRN PRN Reason: FEVER/PAIN Last Admin: 08/06/18 08:50 Dose: 650 mg Aspirin (Aspirin Ec Tab*) 81 mg PO DAILY [facility] Last Admin: 08/07/18 08:31 Dose: 81 mg Atorvastatin Calcium (Lipitor*) 20 mg PO DAILY [facility] Last Admin: 08/07/18 08:31 Dose: 20 mg Bisacodyl (Dulcolax Supp*) 10 mg [place] DAILY PRN PRN Reason: CONSTIPATION Last Admin: 08/04/18 18:57 Dose: 10 mg Carbidopa/Levodopa (Sinemet 25/100 Tab(*)) 2 tab PO TID [facility] Last Admin: 08/07/18 13:15 Dose: 2 tab Cyanocobalamin (Vitamin B12 Tab*) 500 mcg PO DAILY [facility] Last Admin: 08/07/18 08:30 Dose: 500 mcg Cyclobenzaprine HCl (Flexeril Tab*) 5 mg PO BID PRN PRN Reason: SPASMS Last Admin: 08/07/18 08:29 Dose: 5 mg Dextrose (D50w Syringe 50 Ml*) 12.5 gm IV PUSH .FOR FS < 60 - SS PRN PRN Reason: FS < 60 Docusate Sodium (Colace Cap*) 100 mg PO BID [facility] Last Admin: 08/07/18 08:30 Dose: 100 mg Heparin Sodium (Porcine) (Heparin Vial(*)) 5,000 units SUBCUT Q8HR [facility] Last Admin: 08/07/18 13:16 Dose: 5,000 units Losartan Potassium (Cozaar Tab*) 100 mg PO DAILY [facility] Last Admin: 08/07/18 08:31 Dose: 100 mg Magnesium Hydroxide (Milk Of Magnesia Liq*) 30 ml PO BID [facility] Last Admin: 08/07/18 08:30 Dose: 30 ml Magnesium Hydroxide (Milk Of Magnesia Liq*) 30 ml PO BID PRN PRN Reason: CONSTIPATION Last Admin: 08/06/18 17:14 Dose: 30 ml Metformin HCl (Glucophage*) 1,000 mg PO BID [facility] Last Admin: 08/07/18 08:30 Dose: 1,000 mg Metoprolol Tartrate (Lopressor Tab*) 25 mg PO BID [facility] Last Admin: 08/07/18 08:30 Dose: 25 mg Polyethylene Glycol/Electrolytes (Miralax*) 17 gm PO DAILY PRN PRN Reason: CONSTIPATION Last Admin: 08/06/18 17:14 Dose: 17 gm Senna (Senokot Tab*) 1 tab PO BEDTIME PRN PRN Reason: CONSTIPATION Vital Signs - 8 hr 08/07/18 08/07/18 08/07/18 07:50 08:29 11:22 Temperature Pulse Rate Respiratory 18 18 18 Rate Blood Pressure (mmHg) O2 Sat by Pulse Oximetry 08/07/18 11:27 Temperature 97.8 F Pulse Rate 67 Respiratory 16 Rate Blood Pressure 137/77 (mmHg) O2 Sat by Pulse 95 Oximetry Oxygen Devices in Use Now: None Appearance: sittingin chair, leans to left, NAD Eyes: No Scleral Icterus Ears/Nose/Mouth/Throat: NL Teeth, Lips, Gums, Clear Oropharnyx Neck: NL Appearance and Movements; NL JVP Respiratory: Symmetrical Chest Expansion and Respiratory Effort, Clear to Auscultation Cardiovascular: RRR Abdominal: NL Sounds; No Tenderness; No Distention, No Hepatosplenomegaly Lymphatic: No Cervical Adenopathy Extremities: No Edema Neurological: Alert and Oriented x 3, - - vertical gaze palsy, left side slightly weaker than right Result Diagrams: 08/04/18 11:32 08/06/18 05:00 Microbiology and Other Data: Microbiology 08/04/18 16:20 Urine Culture - Final Urine No Growth (<1,000 CFU/mL) Assess/Plan/Problems-Billing 73 yo M h/o 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, HTN, DM2 p/w increased falls in setting of worsening neurodegenerative dz - Patient Problems (1) Falls Comment: Constillation of findings (including vertical gaze palsy and MRI) suggest progressive supernuclear palsy (PSP) more than parkinsons dz Discussed progressive nature of dz I agree rehab would help optimize strength coordination in order to avoid falls PMRU considering placement and is following; also bed available at [facility] Thursday check MRI l-spine given noted left sided weakness - possibel T1 hyperintensity, d/w neuro re: need for sacral MRI (2) Parkinson disease Comment: More likely PSP (see above) Remain inpatient to start decreasing sinemet today (decrease to 2 tabs TID) (3) Diabetes Comment: metformin restarted 08/06 d/c lispro ss (4) DVT prophylaxis Comment: HSQ
[2018-08-07] MEDS: Polyethylene Glycol 3350* 17 GM PACKET PO SCH (22:34)
[2018-08-08] MEDS: Heparin VIAL(*) 5000 UNITS/ML VIAL (FIVE THOUSAND) SUBCUT SCH ×2 (06:15→13:01)
[2018-08-08] MEDS: Magnesium Hydroxide LIQ* 30 ML UDC PO SCH (08:40)
[2018-08-08] MEDS: Aspirin EC TAB* 81 MG TAB.EC PO SCH (08:41)
[2018-08-08] MEDS: metFORMIN* 1,000 MG TAB PO SCH (08:41)
[2018-08-08] MEDS: Cyanocobalamin TAB* 500 MCG PO SCH (08:41)
[2018-08-08] MEDS: Metoprolol Tartrate TAB* 25 MG PO SCH (08:41)
[2018-08-08] MEDS: Polyethylene Glycol 3350* 17 GM PACKET PO SCH ×2 (08:41→13:01)
[2018-08-08] MEDS: Losartan TAB* 25 MG PO SCH (08:41)
[2018-08-08] MEDS: Carbidopa/Levodop 25/100 MG TAB(*) PO SCH ×2 (08:41→13:01)
[2018-08-08] MEDS: Docusate CAP* 100 MG PO SCH (08:41)
[2018-08-08] MEDS: Atorvastatin* 20 MG TAB PO SCH (08:42)
--- NOTE | 2018-08-08 11:17 | PN ---
Subjective Date of Service: 08/08/18 Length of Stay: 4 Days Interval History: Overnight, no worsening or new issues. He is ambulating with full assist at this point but continues to feel unsteady. No further falls. Not complaining of severe back pain this am. He is anxious to get some rehab for his symptoms MRI LS spine: multilevel disease, worst at L5-S1 with right sided neuroforaminal narrowing that is severe. No fractures identified Objective Active Medications: Acetaminophen (Tylenol Tab*) 650 mg PO Q4H PRN PRN Reason: FEVER/PAIN Last Admin: 08/06/18 08:50 Dose: 650 mg Aspirin (Aspirin Ec Tab*) 81 mg PO DAILY [facility] Last Admin: 08/08/18 08:41 Dose: 81 mg Atorvastatin Calcium (Lipitor*) 20 mg PO DAILY [facility] Last Admin: 08/08/18 08:42 Dose: 20 mg Bisacodyl (Dulcolax Supp*) 10 mg [place] DAILY PRN PRN Reason: CONSTIPATION Last Admin: 08/04/18 18:57 Dose: 10 mg Carbidopa/Levodopa (Sinemet 25/100 Tab(*)) 2 tab PO TID [facility] Last Admin: 08/08/18 08:41 Dose: 2 tab Cyanocobalamin (Vitamin B12 Tab*) 500 mcg PO DAILY [facility] Last Admin: 08/08/18 08:41 Dose: 500 mcg Cyclobenzaprine HCl (Flexeril Tab*) 5 mg PO BID PRN PRN Reason: SPASMS Last Admin: 08/07/18 08:29 Dose: 5 mg Dextrose (D50w Syringe 50 Ml*) 12.5 gm IV PUSH .FOR FS < 60 - SS PRN PRN Reason: FS < 60 Docusate Sodium (Colace Cap*) 100 mg PO BID [facility] Last Admin: 08/08/18 08:41 Dose: 100 mg Heparin Sodium (Porcine) (Heparin Vial(*)) 5,000 units SUBCUT Q8HR [facility] Last Admin: 08/08/18 06:15 Dose: 5,000 units Losartan Potassium (Cozaar Tab*) 100 mg PO DAILY [facility] Last Admin: 08/08/18 08:41 Dose: 100 mg Magnesium Hydroxide (Milk Of Magnesia Liq*) 30 ml PO BID [facility] Last Admin: 08/08/18 08:40 Dose: 30 ml Magnesium Hydroxide (Milk Of Magnesia Liq*) 30 ml PO BID PRN PRN Reason: CONSTIPATION Last Admin: 08/06/18 17:14 Dose: 30 ml Metformin HCl (Glucophage*) 1,000 mg PO BID [facility] Last Admin: 08/08/18 08:41 Dose: 1,000 mg Metoprolol Tartrate (Lopressor Tab*) 25 mg PO BID [facility] Last Admin: 08/08/18 08:41 Dose: 25 mg Polyethylene Glycol/Electrolytes (Miralax*) 17 gm PO DAILY PRN PRN Reason: CONSTIPATION Last Admin: 08/06/18 17:14 Dose: 17 gm Polyethylene Glycol/Electrolytes (Miralax*) 17 gm PO TID [facility] Last Admin: 08/08/18 08:41 Dose: 17 gm Senna (Senokot Tab*) 1 tab PO BEDTIME PRN PRN Reason: CONSTIPATION Vital Signs 08/07/18 08/07/18 08/07/18 11:22 11:27 16:15 Temperature 97.8 F 97.8 F Pulse Rate 67 78 Respiratory 18 16 Rate Blood Pressure 137/77 132/73 (mmHg) O2 Sat by Pulse 95 97 Oximetry 08/07/18 08/07/18 08/08/18 19:19 20:00 02:54 Temperature 97.6 F 97.5 F Pulse Rate 75 64 Respiratory 16 16 20 Rate Blood Pressure 146/76 160/88 (mmHg) O2 Sat by Pulse 95 95 Oximetry 08/08/18 08/08/18 08/08/18 06:27 08:00 08:38 Temperature 98.4 F Pulse Rate 65 Respiratory 20 16 Rate Blood Pressure 150/80 160/83 (mmHg) O2 Sat by Pulse 96 Oximetry Intake and Output Last 24 Hours 08/06/18 08/07/18 08/08/18 08/09/18 06:59 06:59 06:59 06:59 Intake Total 430 2360 880 360 Output Total 600 900 600 275 Balance -170 1460 280 85 Intake: Oral 430 2360 880 360 Output: Urine 600 900 600 275 Other: # Voids 2 2 Oxygen Devices in Use Now: None Neurology Exam: General: NAD. Pleasant HEENT: Normocephelic/atraumatic, sclera anicteric, mucous membranes moist Neck: Supple Extremities: No clubbing, cyanosis, or edema. Neurological Findings: Awake, alert, and oriented to person, place, and time. Speech: fluent without dysarthria, repetition intact. Mild hypophonia and decreased facial expression with decreased blink Cranial Nerve: PERRL, EOM intact except upgaze difficulty7, mild left facial droop Motor: 5/5 throughout, proximal and distal extremities x4 with increased tone throughout, bradykinesia Finger to nose, rapid alternating movements intact without tremor Result Diagrams: 08/04/18 11:32 08/06/18 05:00 Microbiology and Other Data: Microbiology 08/04/18 16:20 Urine Culture - Final Urine No Growth (<1,000 CFU/mL) Assessment/Plan 73 yo M Likely PSP, gait instability, falls 1. Suspect PSP given PE findings. This is something we have discussed in the past. Will continue the Sinemet for now. I updated the on progress and plans 2. LS Spine disease, while significant, I do not think this is the cause of his falls. No fractures 3. HP left: likely related to cortical atrophy/PSP. No evidence of stroke Given his current state and risk of falls, I do think he would do will with inpatient Rehab where he could get a combination of PT/OT/ST. Being evaluated.
[2018-08-08 12:27] VITALS: BP 112/53
--- NOTE | 2018-08-08 22:02 | DS ---
CONTINUATION ADDENDUM NOW INCLUDED ON THIS REPORT CC: Dr. Mohinder Putnam * DISCHARGE SUMMARY: DATE OF ADMISSION: 08/04/18 DATE OF DISCHARGE: 08/08/18 PRIMARY CARE PROVIDER: Mohinder Putnam MD. CONDITION ON DISCHARGE: Improved/good. DISPOSITION ON DISCHARGE: PMRU. PRIMARY DIAGNOSIS: Include progressive supranuclear palsy. SECONDARY DIAGNOSES: Include: 1. Hypertension. 2. Hyperlipidemia. 3. Siz-dqrevhe-gbcunrofm diabetes mellitus. 4. Falls. 5. Constipation. MEDICATIONS ON DISCHARGE: 1. Metformin 1000 mg twice daily. 2. Metoprolol tartrate 25 mg twice daily. 3. Losartan 100 mg daily. 4. Cyclobenzaprine 10 mg twice daily as needed. 5. Vitamin B12 500 mcg daily. 6. Atorvastatin 20 mg daily. 7. Aspirin 81 mg daily. 8. Senna 1 tab at bedtime as needed. 9. MiraLAX 17 g daily, hold for diarrhea or loose stools. 10. Docusate 100 mg twice daily. 11. Sinemet 25/100 mg tabs, 2 tabs 3 times daily. 12. Acetaminophen 650 mg every 4 hours as needed. CONTINUATION ADDENDUM: PRIMARY DIAGNOSIS: Rib fracture. DIAGNOSTIC IMAGING: Chest x-ray with rib film, nondisplaced fracture of the left 9 and 10th ribs. Brain MRI, impression: Mildly disproportionate prominence of the ventricular system and scattered foci of elevated T2/FLAIR signal in periventricular and subcortical white matter. Disproportionate volume loss at the mid brain at the level of the cerebral peduncles, which could be associated with neurodegenerative syndrome including progressive supranuclear palsy. Cervical MRI, impression: Degenerative disk disease and osteoarthritis. There are multilevel neural foraminal narrowing. Lumbar spine MRI, impression: Multilevel spondylitic changes of the lumbar spine, most pronounced at L5-S1 with impingement upon exiting right L5 nerve root, possible T1 hypointensity and STIR hyperintensity involving the marrow of the partially visualized lower sacrum with a recommendation for a full MRI spectrum. Full MRI of the pelvis when available and lumbarization of S1-L1 is counted at the first nonweightbearing vertebral level. HISTORY OF PRESENT ILLNESS AND HOSPITAL COURSE: This is a pleasant 73-year-old man with past medical history as outlined above including Parkinson's disease, now thought to represent progressive supranuclear palsy with recent admission for falls, returned to the hospital with increasing falls. He was seen in consultation with Neurology Services to refine the diagnosis to include suspected neurodegenerative disorder, namely progressive supranuclear palsy contributing to his increasing falls. He was hospitalized for further management of his rib fractures as well as titration of his Parkinson's medication. The diagnosis of PSP, his Sinemet was titrated down, which he tolerated well. I will continue this titration as an outpatient. He continued to improve in both his pain control and strength. He tolerated the medication titration well. Acute kidney injury which resolved with normal saline. He will be discharged to [facility] for continued rehabilitation prior to returning home. FOLLOWUP: At followup, please: 1. Consider evaluation of pelvis with MRI for indicated findings as noted above. 2. The patient will need stitches removed from the wound in his left scalp in the next several days. 3. Continue Sinemet titration as directed by patient's neurologist. 4. No other specific labs or vitals that need followup. TIME SPENT: Greater than 60 minutes was spent on this discharge of this patient , greater than half was spent [id number] with the patient. [id number]/[facility] #: [id number] Dimitrios- [id number]/CPS #: [id number] MICHEL
--- NOTE | 2018-08-08 23:24 | DS ---
ADDENDUM: DISCHARGE SUMMARY: PRIMARY DIAGNOSIS: Rib fracture. DIAGNOSTIC IMAGING: Chest x-ray with rib film, nondisplaced fracture of the left 9 and 10th ribs. Brain MRI, impression: Mildly disproportionate prominence of the ventricular system and scattered foci of elevated T2/FLAIR signal in periventricular and subcortical white matter. Disproportionate volume loss at the mid brain at the level of the cerebral peduncles, which could be associated with neurodegenerative syndrome including progressive supranuclear palsy. Cervical MRI, impression: Degenerative disk disease and osteoarthritis. There are multilevel neural foraminal narrowing. Lumbar spine MRI, impression: Multilevel spondylitic changes of the lumbar spine, most pronounced at L5-S1 with impingement upon exiting right L5 nerve root, possible T1 hypointensity and STIR hyperintensity involving the marrow of the partially visualized lower sacrum with a recommendation for a full MRI spectrum. Full MRI of the pelvis when available and lumbarization of S1-L1 is counted at the first nonweightbearing vertebral level. HISTORY OF PRESENT ILLNESS AND HOSPITAL COURSE: This is a pleasant 73-year-old man with past medical history as outlined above including Parkinson's disease, now thought to represent progressive supranuclear palsy with recent admission for falls, returned to the hospital with increasing falls. He was seen in consultation with Neurology Services to refine the diagnosis to include suspected neurodegenerative disorder, namely progressive supranuclear palsy contributing to his increasing falls. He was hospitalized for further management of his rib fractures as well as titration of his Parkinson's medication. The diagnosis of PSP, his Sinemet was titrated down, which he tolerated well. I will continue this titration as an outpatient. He continued to improve in both his pain control and strength. He tolerated the medication titration well. Acute kidney injury which resolved with normal saline. He will be discharged to [facility] for continued rehabilitation prior to returning home. FOLLOWUP: At followup, please: 1. Consider evaluation of pelvis with MRI for indicated findings as noted above. 2. The patient will need stitches removed from the wound in his left scalp in the next several days. 3. Continue Sinemet titration as directed by patient's neurologist. 4. No other specific labs or vitals that need followup. TIME SPENT: Greater than 60 minutes was spent on this discharge of this patient , greater than half was spent [id number] with the patient. [id number]/[facility] #: [id number] [facility]
== END 2018-08-08 17:11 | DRG 57 ==
LOC: ED 10:42 → MEDTELE 13:26 → OBSVTOIN 08-05 10:00
PROVIDERS: ADMIT Internal Medicine; ATTEND Internal Medicine
DX: G23.1 Progressive supranuclear ophthalmoplegia [Steele-Richardson-Olszewski] (principal); S22.42XA Multiple fractures of ribs, left side, initial encounter for closed fracture; N17.9 Acute kidney failure, unspecified; G81.94 Hemiplegia, unspecified affecting left nondominant side; I10 Essential (primary) hypertension; E78.5 Hyperlipidemia, unspecified; E11.9 Type 2 diabetes mellitus without complications; K59.00 Constipation, unspecified; Z91.81 History of falling; M50.30 Other cervical disc degeneration, unspecified cervical region; M47.9 Spondylosis, unspecified; G20 Parkinson's disease; W18.30XA Fall on same level, unspecified, initial encounter; M48.07 Spinal stenosis, lumbosacral region; M85.88 Other specified disorders of bone density and structure, other site; M43.28 Fusion of spine, sacral and sacrococcygeal region; M51.37 Other intervertebral disc degeneration, lumbosacral region; S01.01XD Laceration without foreign body of scalp, subsequent encounter; Z79.84 Long term (current) use of oral hypoglycemic drugs; Z79.82 Long term (current) use of aspirin; Z79.899 Other long term (current) drug therapy; Z88.0 Allergy status to penicillin; Y92.9 Unspecified place or not applicable
CPT/HCPCS: 36415; 70450; 70551; 71045; 72131; 72141; 72148; 80048; 80053; 80061; 81003; 81015; 82607; 82746; 83036; 83519; 83605; 83735; 84484; 85025; 85610; 85730; 86850; 86900; 86901; 87086; 93005; 96361; 96365; 96372; 99284; A9270-GY; G0378; G8978-GP-CI; G8978-GP-CK; G8979-GP-CI; G8980-GP-CI; G8987-GO-CJ; G8987-GO-CK; G8988-GO-CJ; G8989-GO-CJ; J0360; J1644

== ENCOUNTER 2018-08-08 17:14 | Inpatient (IN) | payer MEDICARE, BC ==
[2018-08-08] MEDS ORDERED: metFORMIN* 500 MG TAB PO ONE (18:01)
[2018-08-08] MEDS ORDERED: Magnesium Hydroxide LIQ* 30 ML UDC PO PRN (18:04)
--- NOTE | 2018-08-08 21:02 | HP ---
ADMISSION HISTORY AND PHYSICAL: DATE OF ADMISSION: 08/08/18 REASON FOR ADMISSION: Progressive supranuclear palsy. HISTORY OF PRESENT ILLNESS: Shane Anderson is a 73-year-old male. He has a 7- year history of a gait disorder. He was followed originally by Dr. Salazar locally and also Dr. Conte at [place]. He was diagnosed with progressive parkinsonism, but not Parkinson's disease. He had progressive bradykinesias, a soft voice and a gait disturbance with spasticity on his left side. The patient came into the hospital 07/31/18 after a fall. He was having back pain at that time and was admitted. He was evaluated by Dr. Cabello, the neurologist , who felt that he had a slowly progressive neurodegenerative disease. Dr. Cabello was struck by his eye findings and that he had no upward gaze and felt that he might have progressive supranuclear palsy and not Parkinson's. The patient was discharged home on 07/31/18. He came back to the hospital on . He was again having falls. He was admitted to the hospital. He had an MRI of the brain and an MRI of his cervical spine ordered. MRI of the brain showed significant volume loss in his cerebral peduncles in the midbrain. He again had a consultation with a neurologist. He had seen Dr. Velásquez. Dr. Velásquez felt that the patient had progressive supranuclear palsy. The patient had been on Sinemet for his parkinsonism. Dr. Velásquez recommended backing off from the Sinemet. His Sinemet was lowered to 2 tablets 3 times a day. He had also seen Dr. Castillo, his neurologist. Dr. Castillo felt that the patient did have PSP ( progressive supranuclear palsy). He also had weakness on his left side and spasticity. There was no evidence of him having a stroke. The patient was felt to have physical therapy and occupational therapy and perhaps speech therapy needs. He is now being admitted for inpatient rehab. PAST MEDICAL HISTORY: Significant for ain-qxkvnho-fgpkkeuhj diabetes. He has a history of hypertension as well, hyperlipidemia. CURRENT MEDICATIONS: Include: 1. Lipitor. 2. Aspirin. 3. Sinemet. 4. Flexeril. 5. Cozaar. 6. Glucophage. 7. Lopressor. 8. Bowel medications. 9. Heparin for DVT prophylaxis. ALLERGIES: He has an allergy to PENICILLIN. SOCIAL HISTORY: He is a nonsmoker and nondrinker. He lives with his . They live in a single level house with 3 steps to enter with bilateral rails. The patient's works 3 days a week. REVIEW OF SYSTEMS: The patient reports no current shortness of breath or chest pain. He does note that he fractured his 9th and 10th ribs in one of his recent falls on the left side and also had a small bump on his head. PHYSICAL EXAMINATION VITAL SIGNS: The patient's temperature is 97.9, blood pressure is 112/53, pulse 65, respirations 16. HEENT: As mentioned, he has a small scab over his left scalp. He has little upward gaze with his eyes. NECK: His neck appeared to be supple. LUNGS: Sounded clear to auscultation bilaterally. HEART: Sounds were regular. S1 and S2 were audible. ABDOMEN: Soft and nontender. EXTREMITIES: He had increased tone, worse on the left than on the right. NEUROLOGIC: The patient was awake, alert, oriented. Muscle strength appeared to be 5/5. He had as mentioned increased tone throughout. He has mild hypophonic speech. He may have a left facial droop. FUNCTIONAL EXAM: The patient transfers with contact guard to min assist. ASSESSMENT: Progressive supranuclear palsy with multiple falls recently. PLAN: Integrate him into a comprehensive and therapeutic rehab program with the following goals: 1. Physical Therapy will work with the patient. They are going to work on functional transfer training, ambulation training with a walker. 2. Occupational Therapy will see the patient, work on his activities of daily living including toileting and toilet transfers. 3. Speech Therapy will see the patient, evaluate his voice and communication skills. 4. Heparin for DVT prophylaxis. 5. For his diabetes, we will continue Glucophage. We may resume fingersticks. 6. We will continue his Sinemet at current dose for now. 7. Continue Lopressor and Cozaar for his hypertension. 8. director of housing and energy services will be closely involved to make sure that any services and equipment the patient requires are in place prior to discharge. 9. Family training as appropriate. 10. Home with appropriate services. ESTIMATED LENGTH OF STAY: 14 days. [id number]/[facility] #: [id number] [facility]
[2018-08-08] MEDS: Metoprolol Tartrate TAB* 25 MG PO SCH (21:33)
[2018-08-08] MEDS: Carbidopa/Levodop 25/100 MG TAB(*) PO SCH (21:33)
[2018-08-08] MEDS: Cyclobenzaprine TAB* 10 MG PO PRN (21:33)
[2018-08-08] MEDS: Heparin VIAL(*) 5000 UNITS/ML VIAL (FIVE THOUSAND) SUBCUT SCH (21:36)
[2018-08-08] MEDS: Docusate CAP* 100 MG PO SCH (21:36)
[2018-08-09] MEDS: Heparin VIAL(*) 5000 UNITS/ML VIAL (FIVE THOUSAND) SUBCUT SCH ×3 (05:54→21:01)
[2018-08-09 06:04] LABS: ABS Basophils 0.1 10^3/ul (0-0.2); ABS Eosinophils 0.5 10^3/ul (0-0.6); ABS Lymphocytes 1.8 10^3/ul (1.0-4.8); ABS Monocytes 0.9 10^3/ul (0-0.8); ABS Neutrophils 6.8 10^3/ul (1.5-7.7); ABS Nucleated RBC 0 10^3/ul; Eosinophil % 4.5 %; Hematocrit 42 % (36-46); Hemoglobin 13.5 g/dL (14.0-18.0); Mean Corpuscular HGB Conc 33 g/dL (31-36); Mean Corpuscular Hemoglobin 30 pg (27-31); Mean Corpuscular Volume 91 fL (80-94); Mean Platelet Volume 8.6 fL (7.4-10.4); Nucleated Red Blood Cells % 0.1; Platelet Count 344 10^3/uL (150-450); Red Blood Count 4.58 10^6 /uL (4.18-5.48); Red Cell Distribution Width 14 % (10.5-15); White Blood Count 10.1 10^3/uL (3.5-10.8)
[2018-08-09 06:19] LABS: Albumin 3.6 g/dL (3.2-5.2); Albumin/Globulin Ratio 1.2 (1-3); BUN/Creatinine Ratio 18.8 (8-20); Calcium 8.4 mg/dL (8.6-10.3); EGFR Non-African American 44.6 (>60); Total Bilirubin 0.4 mg/dL (0.2-1.0); Total Protein 6.6 g/dL (6.4-8.9)
[2018-08-09 06:26] LABS: Potassium 5.2 mmol/L (3.5-5.0)
[2018-08-09] MEDS: metFORMIN* 500 MG TAB PO SCH ×2 (08:23→16:57)
[2018-08-09] MEDS: Carbidopa/Levodop 25/100 MG TAB(*) PO SCH ×3 (08:23→20:03)
[2018-08-09] MEDS: Aspirin EC TAB* 81 MG TAB.EC PO SCH (08:23)
[2018-08-09] MEDS: Metoprolol Tartrate TAB* 25 MG PO SCH ×2 (08:23→20:03)
[2018-08-09] MEDS: Losartan TAB* 25 MG PO SCH (08:24)
[2018-08-09] MEDS: Docusate CAP* 100 MG PO SCH ×2 (08:24→20:10)
[2018-08-09] MEDS: Polyethylene Glycol 3350* 17 GM PACKET PO SCH (08:25)
[2018-08-09] MEDS: Atorvastatin* 20 MG TAB PO SCH (16:57)
--- NOTE | 2018-08-09 18:08 | PN ---
Progress Note Date of Service: 08/09/18 Note: TESHA AQUINO was visited. Therapy notes read and reviewed. I spoke with his . His neurologist thinks he may be best off relying on a wheelchair when the isn't around. He definitely benefits from a walker but doesn't always remember it. His sutures from his scalp were removed without incident. Current Medications: Active Medications Generic Name Dose Route Start Last Admin Trade Name Freq PRN Reason Stop Dose Admin Acetaminophen 650 mg 08/08/18 17:47 Tylenol Tab* PO Q6H PRN FEVER/PAIN Aspirin 81 mg 08/09/18 09:00 08/09/18 08:23 Aspirin Ec Tab* PO 81 mg DAILY ESTHER Administration Atorvastatin Calcium 20 mg 08/09/18 17:00 08/09/18 16:57 Lipitor* PO 20 mg 1700 ESTHER Administration Carbidopa/Levodopa 2 tab 08/08/18 21:00 08/09/18 14:07 Sinemet 25/100 Tab(*) PO 2 tab TID ESTHER Administration Cyclobenzaprine HCl 5 mg 08/08/18 17:59 08/08/18 21:33 Flexeril Tab* PO 5 mg BID PRN Administration SPASMS Docusate Sodium 100 mg 08/08/18 21:00 08/09/18 08:24 Colace Cap* PO Not Given BID ESTHER Heparin Sodium (Porcine) 5,000 units 08/08/18 22:00 08/09/18 14:07 Heparin Vial(*) SUBCUT 5,000 units Q8HR ESTHER Administration Losartan Potassium 100 mg 08/09/18 09:00 08/09/18 08:24 Cozaar Tab* PO 100 mg DAILY ESTHER Administration Magnesium Hydroxide 30 ml 08/08/18 18:04 Milk Of Magnesia Liq* PO Q6H PRN CONSTIPATION Metformin HCl 1,000 mg 08/09/18 08:00 08/09/18 16:57 Glucophage* PO 1,000 mg 0800,1700 ESTHER Administration Metoprolol Tartrate 25 mg 08/08/18 21:00 08/09/18 08:23 Lopressor Tab* PO 25 mg BID ESTHER Administration Polyethylene Glycol/Electrolytes 17 gm 08/09/18 09:00 08/09/18 08:25 Miralax* PO Not Given DAILY ESTHER Senna 2 tab 08/08/18 17:47 Senokot Tab* PO BEDTIME PRN CONSTIPATION Vital Signs: Vital Signs Temp Pulse Resp BP Pulse Ox 97.9 F 73 20 119/60 96 08/09/18 15:06 08/09/18 15:06 08/09/18 15:06 08/09/18 15:06 08/09/18 15:14 Lab Results: Laboratory Results - last 24 hr 08/09/18 08/09/18 05:44 05:44 WBC 10.1 RBC 4.58 Hgb 13.5 L Hct 42 MCV 91 MCH 30 MCHC 33 RDW 14 Plt Count 344 MPV 8.6 Neut % (Auto) 67.7 Lymph % (Auto) 18.0 Cloud % (Auto) 8.9 Eos % (Auto) 4.5 Baso % (Auto) 0.9 Absolute Neuts (auto) 6.8 Absolute Lymphs (auto) 1.8 Absolute Monos (auto) 0.9 H Absolute Eos (auto) 0.5 Absolute Basos (auto) 0.1 Absolute Nucleated RBC 0 Nucleated RBC % 0.1 Sodium 133 L Potassium 5.2 H Chloride 104 Carbon Dioxide 24 Anion Gap 5 BUN 29 H Creatinine 1.54 H Est GFR ( Amer) 54.0 Est GFR (Non-Af Amer) 44.6 BUN/Creatinine Ratio 18.8 Glucose 112 H Calcium 8.4 L Total Bilirubin 0.40 AST 17 ALT 5 L Alkaline Phosphatase 85 Total Protein 6.6 Albumin 3.6 Globulin 3.0 Albumin/Globulin Ratio 1.2 Exam: HEENT: No upward gaze. Laceration over scalp on left LUNGS: Clear HEART: reg rhythm ABDOMEN: Soft NEUROLOGIC: muscle strength 5/5 Assessment/Plan: 1. 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 DM: Metformin 3. Hypertension: Cozaar/Lopressor 4. CAD: Lopressor/ASA 5. DVT Prophylaxis: Heparin 6. Advanced Directives: Full code. is surrogate decision maker 08/09/18 18:26 08/09/18 18:26 08/09/18 18:29
[2018-08-10] MEDS: Cyclobenzaprine TAB* 10 MG PO PRN (05:10)
[2018-08-10] MEDS: Heparin VIAL(*) 5000 UNITS/ML VIAL (FIVE THOUSAND) SUBCUT SCH ×3 (05:12→21:29)
[2018-08-10] MEDS: Aspirin EC TAB* 81 MG TAB.EC PO SCH (08:42)
[2018-08-10] MEDS: Losartan TAB* 25 MG PO SCH (08:42)
[2018-08-10] MEDS: Metoprolol Tartrate TAB* 25 MG PO SCH ×2 (08:42→21:28)
[2018-08-10] MEDS: Docusate CAP* 100 MG PO SCH ×2 (08:43→21:28)
[2018-08-10] MEDS: Carbidopa/Levodop 25/100 MG TAB(*) PO SCH ×3 (08:43→21:27)
[2018-08-10] MEDS: metFORMIN* 500 MG TAB PO SCH ×2 (08:43→17:00)
[2018-08-10] MEDS: Polyethylene Glycol 3350* 17 GM PACKET PO SCH (08:45)
--- NOTE | 2018-08-10 12:36 | PMRUTEAM ---
PMRU: Team Meeting Current Status: Nursing: Current Status Skin Deviations [Left Shoulder Other ] Skin Deviations [Left 2nd Toe] Abrasion Skin Deviations [Left Temporal Wound ] Skin Deviation Description [ pink protrusion approx 1 cm in diam Left Shoulder] baseline per pt Skin Deviation Description [ healing Left 2nd Toe] Skin Deviation Description [ no drainage noted Left Temporal] Bladder Current Status Continent during day, urge incontinence, incontinence at night. One assist and walker to bathroom or urinal with assistance. Bowel Current Status Continent- independent. One assist and walker to bathroom. Nutrition Current Status Set up, containers opened. Pt typically eats 100% of meals. Medication Current Status Pills one or two at a time with water. Pt recognizes and verbalizes understanding of some meds. Physical Therapy: Current Status Bed Mobility Assistance Supervision Transfer Mobility Assistance Contact Guard Assist,Min Assist Transfer/Bed Mobility Rolling Walker Recommended Devices Ambulation Assistance Contact Guard Assist,Min Assist Ambulation Assistive Devices Rolling Walker Number of Feet Patient 200 Ambulated Stairs Assistance Not Tested Stairs Recommended Devices One Rail Number of Stairs 4 Occupational Therapy: Current Status Upper Body Dressing Supervision,Min Assist Lower Body Dressing Min Assist Bathing Min Assist Toileting Contact Guard Assist Toilet Transfer Contact Guard Assist Shower Transfer Contact Guard Assist Eating Ind with Adaptive Equip Rec Therapy: Current Status Summary of Assessment and Recreation Therapy Services have been introduced Clinical Impression and assessment is complete. Pt. is open to continued leisure visits which will be provided to him. Treatment Goals Pt. will engage in leisure activities while on the unit. Treatment Plan Provide recreation therapy services and encourage involvement. Social Work: Current Status Discharge Plan return home with home care svs and family support Potential for Family Training pt's is involved and supportive Anticipated Discharge Home Destination Discharge With home care svs and family support Nutrition: Current Status Monitoring Pt admitted to [facility] with hx progressive supranuclear palsy. Completing 100% of most meals so far; eating independently. No evidence difficulty chewing/swallowing per nursing assessments. K+ elevated 08/09 (5.2). Pt with PAM during inpt admission - resolving. BUN/Cr: 29/1.54 (c/w previous values BUN 25-31; Cr 1.3-1.5). Hx T2DM, on Metformin at home. BG adequately controlled as inpt; generally 110s-150s. Last BM . Pt receiving appropriate consistent carb diet ; will follow K+ and suggest renal diet/K+ restriction if K+ does not improve or escalates. Full nutrition assessment to follow per protocol. SPEECH THERAPY: Hypophonia, deficits in memory and problem solving Goals: Physical Therapy: Initial Goals Bed Mobility Assistance Independent Transfer Mobility Assistance Independent Transfer/Bed Mobility Rolling Walker Recommended Devices Ambulation Independent Ambulation Recommended Devices Rolling Walker Ambulation Distance 300 Stairs Assistance Independent Stair Recommended Devices Two Rails Number of Stairs 3 Physical Therapy: Updated Goals Transfer/Bed Mobility Rolling Walker Recommended Devices Occupational Therapy: Initial Goals Goals to be Completed in (Days 5-7 days ) Upper Body Bathing Routine Modified Independent with Lower Body Bathing Routine Modified Independent with Upper Body Dressing Routine Independent Lower Body Dressing Routine Modified Independent with Toilet Hygeine and Clothing Modified Independent with Management Routine Toilet Transfer Routine Modified Independent with Step-In Shower Transfer Modified Independent with Routine Functional Transfers for ADL Modified Independent with Grooming Routine Independent Feeding Routine Modified Independent with Nursing: Goals Bladder Goal Continent- independent. Bowel Goal Continent- Independent. Nutrition Goal Independent, eats 100% of meals. Medication Goal Pt independent with medications. Nutrition: Goals Intervention Goals 1. Intake will remain adequate to maintain stable wt 2. Pt will tolerate PO without difficulty chewing/ swallowing 3. Renal labs; BG will be adequately controlled/ managed 4. Pt will maintain regular bowel pattern without diarrhea/constipation Social Work: Goals Discharge Plan return home with home care svs and family support Potential for Family Training pt's is involved and supportive Anticipated Discharge Home Destination Discharge With home care svs and family support SPPECH THERAPY: Independent with compensatory strategies for memory, problem solving and voice Medicine Note: Length of Stay: 2 weeks Anticipated Discharge Destination: Home Tentative Discharge Date: August 24, 2018 Discharged to: Home
--- NOTE | 2018-08-10 16:43 | PN ---
Progress Note Date of Service: 08/10/18 Note: TESHA AQUINO was visited. Therapy notes read and reviewed. He was discussed in interdisciplinary team rounds. He has trouble walking-keeps going to the right. Current Medications: Active Medications Generic Name Dose Route Start Last Admin Trade Name Freq PRN Reason Stop Dose Admin Acetaminophen 650 mg 08/08/18 17:47 Tylenol Tab* PO Q6H PRN FEVER/PAIN Aspirin 81 mg 08/09/18 09:00 08/10/18 08:42 Aspirin Ec Tab* PO 81 mg DAILY ESTHER Administration Atorvastatin Calcium 20 mg 08/09/18 17:00 08/09/18 16:57 Lipitor* PO 20 mg 1700 ESTHER Administration Carbidopa/Levodopa 2 tab 08/08/18 21:00 08/10/18 14:37 Sinemet 25/100 Tab(*) PO 2 tab TID ESTHER Administration Cyclobenzaprine HCl 5 mg 08/08/18 17:59 08/10/18 05:10 Flexeril Tab* PO 5 mg BID PRN Administration SPASMS Docusate Sodium 100 mg 08/08/18 21:00 08/10/18 08:43 Colace Cap* PO 100 mg BID ESTHER Administration Heparin Sodium (Porcine) 5,000 units 08/08/18 22:00 08/10/18 14:37 Heparin Vial(*) SUBCUT 5,000 units Q8HR ESTHER Administration Losartan Potassium 100 mg 08/09/18 09:00 08/10/18 08:42 Cozaar Tab* PO 100 mg DAILY ESTHER Administration Magnesium Hydroxide 30 ml 08/08/18 18:04 Milk Of Magnesia Liq* PO Q6H PRN CONSTIPATION Metformin HCl 1,000 mg 08/09/18 08:00 08/10/18 08:43 Glucophage* PO 1,000 mg 0800,1700 ESTHER Administration Metoprolol Tartrate 25 mg 08/08/18 21:00 08/10/18 08:42 Lopressor Tab* PO 25 mg BID ESTHER Administration Polyethylene Glycol/Electrolytes 17 gm 08/09/18 09:00 08/10/18 08:45 Miralax* PO Not Given DAILY ESTHER Senna 2 tab 08/08/18 17:47 Senokot Tab* PO BEDTIME PRN CONSTIPATION Vital Signs: Vital Signs Temp Pulse Resp BP Pulse Ox 98.1 F 67 16 121/68 96 08/10/18 14:56 08/10/18 14:56 08/10/18 14:56 08/10/18 14:56 08/10/18 14:56 Exam: HEENT: No upward gaze. Laceration over scalp on left LUNGS: Clear HEART: reg rhythm ABDOMEN: Soft EXTREMITIES: PPI. ROM good NEUROLOGIC: muscle strength 09/19 Assessment/Plan: 1. 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 DM: Metformin 3. Hypertension: Cozaar/Lopressor 4. CAD: Lopressor/ASA 5. DVT Prophylaxis: Heparin 6. Advanced Directives: Full code. is surrogate decision maker 08/10/18 16:43
[2018-08-10] MEDS: Atorvastatin* 20 MG TAB PO SCH (16:59)
[2018-08-10] MEDS: Acetaminophen TAB* 325 MG PO PRN (21:26)
[2018-08-11] MEDS: Heparin VIAL(*) 5000 UNITS/ML VIAL (FIVE THOUSAND) SUBCUT SCH ×3 (06:23→21:01)
[2018-08-11] MEDS: Metoprolol Tartrate TAB* 25 MG PO SCH ×2 (08:12→21:00)
[2018-08-11] MEDS: Losartan TAB* 25 MG PO SCH (08:12)
[2018-08-11] MEDS: metFORMIN* 500 MG TAB PO SCH ×2 (08:12→17:03)
[2018-08-11] MEDS: Docusate CAP* 100 MG PO SCH ×2 (08:12→20:59)
[2018-08-11] MEDS: Carbidopa/Levodop 25/100 MG TAB(*) PO SCH ×3 (08:12→20:59)
[2018-08-11] MEDS: Aspirin EC TAB* 81 MG TAB.EC PO SCH (08:12)
[2018-08-11] MEDS: Polyethylene Glycol 3350* 17 GM PACKET PO SCH (08:12)
[2018-08-11] MEDS: Atorvastatin* 20 MG TAB PO SCH (17:02)
--- NOTE | 2018-08-11 20:26 | PN ---
Progress Note Date of Service: 08/11/18 Note: TESHA AQUINO was visited. Therapy notes read and reviewed. He feels like his balance is getting a little better. His vision is still problematic. Current Medications: Active Medications Generic Name Dose Route Start Last Admin Trade Name Freq PRN Reason Stop Dose Admin Acetaminophen 650 mg 08/08/18 17:47 08/10/18 21:26 Tylenol Tab* PO 650 mg Q6H PRN Administration FEVER/PAIN Aspirin 81 mg 08/09/18 09:00 08/11/18 08:12 Aspirin Ec Tab* PO 81 mg DAILY ESTHER Administration Atorvastatin Calcium 20 mg 08/09/18 17:00 08/11/18 17:02 Lipitor* PO 20 mg 1700 ESTHER Administration Carbidopa/Levodopa 2 tab 08/08/18 21:00 08/11/18 14:46 Sinemet 25/100 Tab(*) PO 2 tab TID ESTHER Administration Cyclobenzaprine HCl 5 mg 08/08/18 17:59 08/10/18 05:10 Flexeril Tab* PO 5 mg BID PRN Administration SPASMS Docusate Sodium 100 mg 08/08/18 21:00 08/11/18 08:12 Colace Cap* PO 100 mg BID ESTHER Administration Heparin Sodium (Porcine) 5,000 units 08/08/18 22:00 08/11/18 14:46 Heparin Vial(*) SUBCUT 5,000 units Q8HR ESTHER Administration Losartan Potassium 100 mg 08/09/18 09:00 08/11/18 08:12 Cozaar Tab* PO 100 mg DAILY ESTHER Administration Magnesium Hydroxide 30 ml 08/08/18 18:04 Milk Of Magnesia Liq* PO Q6H PRN CONSTIPATION Metformin HCl 1,000 mg 08/09/18 08:00 08/11/18 17:03 Glucophage* PO 1,000 mg 0800,1700 ESTHER Administration Metoprolol Tartrate 25 mg 08/08/18 21:00 08/11/18 08:12 Lopressor Tab* PO 25 mg BID ESTHER Administration Polyethylene Glycol/Electrolytes 17 gm 08/09/18 09:00 08/11/18 08:12 Miralax* PO 17 gm DAILY ESTHER Administration Senna 2 tab 08/08/18 17:47 Senokot Tab* PO BEDTIME PRN CONSTIPATION Vital Signs: Vital Signs Temp Pulse Resp BP Pulse Ox 98.3 F 71 20 115/68 94 08/11/18 18:33 08/11/18 18:33 08/11/18 18:33 08/11/18 18:33 08/11/18 18:33 Exam: HEENT: No upward gaze. Laceration over scalp on left LUNGS: Clear HEART: reg rhythm ABDOMEN: Soft EXTREMITIES: PPI. ROM good NEUROLOGIC: muscle strength 09/19 Assessment/Plan: 1. 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 DM: Metformin 3. Hypertension: Cozaar/Lopressor 4. CAD: Lopressor/ASA 5. DVT Prophylaxis: Heparin 6. Advanced Directives: Full code. is surrogate decision maker 08/11/18 20:26
[2018-08-12] MEDS: Acetaminophen TAB* 325 MG PO PRN ×2 (02:03→21:06)
[2018-08-12] MEDS: Heparin VIAL(*) 5000 UNITS/ML VIAL (FIVE THOUSAND) SUBCUT SCH ×3 (05:59→21:52)
[2018-08-12] MEDS: metFORMIN* 500 MG TAB PO SCH ×2 (07:39→16:52)
[2018-08-12] MEDS: Docusate CAP* 100 MG PO SCH ×2 (07:40→21:05)
[2018-08-12] MEDS: Losartan TAB* 25 MG PO SCH (07:40)
[2018-08-12] MEDS: Carbidopa/Levodop 25/100 MG TAB(*) PO SCH ×3 (07:40→21:04)
[2018-08-12] MEDS: Aspirin EC TAB* 81 MG TAB.EC PO SCH (07:40)
[2018-08-12] MEDS: Polyethylene Glycol 3350* 17 GM PACKET PO SCH (07:42)
[2018-08-12] MEDS: Metoprolol Tartrate TAB* 25 MG PO SCH ×2 (07:42→21:05)
[2018-08-12] MEDS: Atorvastatin* 20 MG TAB PO SCH (16:51)
--- NOTE | 2018-08-12 21:23 | PN ---
Progress Note Date of Service: 08/12/18 Note: TESHA AQUINO was visited. Therapy notes read and reviewed. He feels that his walking is better. His had some questions about his walking and wondered whether he should stay in a wheelchair or attempt to walk. Current Medications: Active Medications Generic Name Dose Route Start Last Admin Trade Name Freq PRN Reason Stop Dose Admin Acetaminophen 650 mg 08/08/18 17:47 08/12/18 21:06 Tylenol Tab* PO 650 mg Q6H PRN Administration FEVER/PAIN Aspirin 81 mg 08/09/18 09:00 08/12/18 07:40 Aspirin Ec Tab* PO 81 mg DAILY ESTHER Administration Atorvastatin Calcium 20 mg 08/09/18 17:00 08/12/18 16:51 Lipitor* PO 20 mg 1700 ESTHER Administration Carbidopa/Levodopa 2 tab 08/08/18 21:00 08/12/18 21:04 Sinemet 25/100 Tab(*) PO 2 tab TID ESTHER Administration Cyclobenzaprine HCl 5 mg 08/08/18 17:59 08/10/18 05:10 Flexeril Tab* PO 5 mg BID PRN Administration SPASMS Docusate Sodium 100 mg 08/08/18 21:00 08/12/18 21:05 Colace Cap* PO 100 mg BID ESTHER Administration Heparin Sodium (Porcine) 5,000 units 08/08/18 22:00 08/12/18 14:51 Heparin Vial(*) SUBCUT 5,000 units Q8HR ESTHER Administration Losartan Potassium 100 mg 08/09/18 09:00 08/12/18 07:40 Cozaar Tab* PO 100 mg DAILY ESTHER Administration Magnesium Hydroxide 30 ml 08/08/18 18:04 Milk Of Magnesia Liq* PO Q6H PRN CONSTIPATION Metformin HCl 1,000 mg 08/09/18 08:00 08/12/18 16:52 Glucophage* PO 1,000 mg 0800,1700 ESTHER Administration Metoprolol Tartrate 25 mg 08/08/18 21:00 08/12/18 21:05 Lopressor Tab* PO 25 mg BID ESTHER Administration Polyethylene Glycol/Electrolytes 17 gm 08/09/18 09:00 08/12/18 07:42 Miralax* PO Not Given DAILY ESTHER Senna 2 tab 08/08/18 17:47 Senokot Tab* PO BEDTIME PRN CONSTIPATION Vital Signs: Vital Signs Temp Pulse Resp BP Pulse Ox 98.1 F 68 20 138/78 96 08/12/18 06:00 08/12/18 06:00 08/12/18 07:43 08/12/18 06:00 08/12/18 07:43 Lab Results: Laboratory Results - last 24 hr 08/12/18 07:38 POC Glucose (mg/dL) 114 H Exam: HEENT: No upward gaze. Laceration over scalp on left LUNGS: Clear HEART: reg rhythm ABDOMEN: Soft EXTREMITIES: PPI. ROM good NEUROLOGIC: muscle strength 5/ Assessment/Plan: 1. 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 DM: Metformin 3. Hypertension: Cozaar/Lopressor 4. CAD: Lopressor/ASA 5. DVT Prophylaxis: Heparin 6. Advanced Directives: Full code. is surrogate decision maker 08/12/18 21:23
[2018-08-13] MEDS: Heparin VIAL(*) 5000 UNITS/ML VIAL (FIVE THOUSAND) SUBCUT SCH ×3 (05:41→21:57)
[2018-08-13] MEDS: Polyethylene Glycol 3350* 17 GM PACKET PO SCH (07:33)
[2018-08-13] MEDS: Losartan TAB* 25 MG PO SCH (07:33)
[2018-08-13] MEDS: Metoprolol Tartrate TAB* 25 MG PO SCH ×2 (07:33→21:08)
[2018-08-13] MEDS: Docusate CAP* 100 MG PO SCH ×2 (07:33→21:08)
[2018-08-13] MEDS: Carbidopa/Levodop 25/100 MG TAB(*) PO SCH ×3 (07:33→21:08)
[2018-08-13] MEDS: metFORMIN* 500 MG TAB PO SCH ×2 (07:33→16:59)
[2018-08-13] MEDS: Aspirin EC TAB* 81 MG TAB.EC PO SCH (07:33)
[2018-08-13] MEDS: Atorvastatin* 20 MG TAB PO SCH (16:58)
--- NOTE | 2018-08-13 18:59 | PN ---
Progress Note Date of Service: 08/13/18 Note: TESHA AQUINO was visited. Therapy notes read and reviewed. He feels like he is stronger and knows he needs a walker but am not sure he will remember to use it at home. Current Medications: Active Medications Generic Name Dose Route Start Last Admin Trade Name Freq PRN Reason Stop Dose Admin Acetaminophen 650 mg 08/08/18 17:47 08/12/18 21:06 Tylenol Tab* PO 650 mg Q6H PRN Administration FEVER/PAIN Aspirin 81 mg 08/09/18 09:00 08/13/18 07:33 Aspirin Ec Tab* PO 81 mg DAILY ESTHER Administration Atorvastatin Calcium 20 mg 08/09/18 17:00 08/13/18 16:58 Lipitor* PO 20 mg 1700 ESTHER Administration Carbidopa/Levodopa 2 tab 08/08/18 21:00 08/13/18 14:16 Sinemet 25/100 Tab(*) PO 2 tab TID ESTHER Administration Cyclobenzaprine HCl 5 mg 08/08/18 17:59 08/10/18 05:10 Flexeril Tab* PO 5 mg BID PRN Administration SPASMS Docusate Sodium 100 mg 08/08/18 21:00 08/13/18 07:33 Colace Cap* PO 100 mg BID ESTHER Administration Heparin Sodium (Porcine) 5,000 units 08/08/18 22:00 08/13/18 14:15 Heparin Vial(*) SUBCUT 5,000 units Q8HR ESTHER Administration Losartan Potassium 100 mg 08/09/18 09:00 08/13/18 07:33 Cozaar Tab* PO 100 mg DAILY ESTHER Administration Magnesium Hydroxide 30 ml 08/08/18 18:04 Milk Of Magnesia Liq* PO Q6H PRN CONSTIPATION Metformin HCl 1,000 mg 08/09/18 08:00 08/13/18 16:59 Glucophage* PO 1,000 mg 0800,1700 ESTHER Administration Metoprolol Tartrate 25 mg 08/08/18 21:00 08/13/18 07:33 Lopressor Tab* PO 25 mg BID ESTHER Administration Polyethylene Glycol/Electrolytes 17 gm 08/09/18 09:00 08/13/18 07:33 Miralax* PO Not Given DAILY ESTHER Senna 2 tab 08/08/18 17:47 Senokot Tab* PO BEDTIME PRN CONSTIPATION Vital Signs: Vital Signs Temp Pulse Resp BP Pulse Ox 97.8 F 68 20 134/73 96 08/13/18 16:37 08/13/18 16:37 08/13/18 17:29 08/13/18 16:37 08/13/18 16:37 Lab Results: Laboratory Results - last 24 hr 08/13/18 07:31 POC Glucose (mg/dL) 118 H Exam: HEENT: No upward gaze. Laceration over scalp on left LUNGS: Clear HEART: reg rhythm ABDOMEN: Soft EXTREMITIES: PPI. ROM good NEUROLOGIC: muscle strength 5/5 Assessment/Plan: 1. 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 DM: Metformin 3. Hypertension: Cozaar/Lopressor 4. CAD: Lopressor/ASA 5. DVT Prophylaxis: Heparin 6. Advanced Directives: Full code. is surrogate decision maker 08/13/18 18:59
[2018-08-14] MEDS: Heparin VIAL(*) 5000 UNITS/ML VIAL (FIVE THOUSAND) SUBCUT SCH ×3 (05:37→21:26)
[2018-08-14] MEDS: metFORMIN* 500 MG TAB PO SCH ×2 (08:24→17:47)
[2018-08-14] MEDS: Polyethylene Glycol 3350* 17 GM PACKET PO SCH (08:24)
[2018-08-14] MEDS: Aspirin EC TAB* 81 MG TAB.EC PO SCH (08:25)
[2018-08-14] MEDS: Carbidopa/Levodop 25/100 MG TAB(*) PO SCH ×3 (08:25→21:20)
[2018-08-14] MEDS: Metoprolol Tartrate TAB* 25 MG PO SCH ×2 (08:27→21:21)
[2018-08-14] MEDS: Losartan TAB* 25 MG PO SCH (08:27)
[2018-08-14] MEDS: Docusate CAP* 100 MG PO SCH ×2 (08:29→21:21)
--- NOTE | 2018-08-14 12:24 | PN ---
Progress Note Date of Service: 08/14/18 Note: TESHA AQUINO was visited. Therapy notes read and reviewed. He has no complaints. He and his are thinking how to make home safer Current Medications: Active Medications Generic Name Dose Route Start Last Admin Trade Name Freq PRN Reason Stop Dose Admin Acetaminophen 650 mg 08/08/18 17:47 08/12/18 21:06 Tylenol Tab* PO 650 mg Q6H PRN Administration FEVER/PAIN Aspirin 81 mg 08/09/18 09:00 08/14/18 08:25 Aspirin Ec Tab* PO 81 mg DAILY ESTHER Administration Atorvastatin Calcium 20 mg 08/09/18 17:00 08/13/18 16:58 Lipitor* PO 20 mg 1700 ESTHER Administration Carbidopa/Levodopa 2 tab 08/08/18 21:00 08/14/18 08:25 Sinemet 25/100 Tab(*) PO 2 tab TID ESTHER Administration Cyclobenzaprine HCl 5 mg 08/08/18 17:59 08/10/18 05:10 Flexeril Tab* PO 5 mg BID PRN Administration SPASMS Docusate Sodium 100 mg 08/08/18 21:00 08/14/18 08:29 Colace Cap* PO 100 mg BID ESTHER Administration Heparin Sodium (Porcine) 5,000 units 08/08/18 22:00 08/14/18 05:37 Heparin Vial(*) SUBCUT 5,000 units Q8HR ESTHER Administration Losartan Potassium 100 mg 08/09/18 09:00 08/14/18 08:27 Cozaar Tab* PO 100 mg DAILY ESTHER Administration Magnesium Hydroxide 30 ml 08/08/18 18:04 Milk Of Magnesia Liq* PO Q6H PRN CONSTIPATION Metformin HCl 1,000 mg 08/09/18 08:00 08/14/18 08:24 Glucophage* PO 1,000 mg 0800,1700 ESTHER Administration Metoprolol Tartrate 25 mg 08/08/18 21:00 08/14/18 08:27 Lopressor Tab* PO 25 mg BID ESTHER Administration Polyethylene Glycol/Electrolytes 17 gm 08/09/18 09:00 08/14/18 08:24 Miralax* PO Not Given DAILY ESTHER Senna 2 tab 08/08/18 17:47 Senokot Tab* PO BEDTIME PRN CONSTIPATION Vital Signs: Vital Signs Temp Pulse Resp BP Pulse Ox 98.1 F 59 18 123/63 93 08/14/18 05:26 08/14/18 05:26 08/14/18 08:00 08/14/18 05:26 08/14/18 08:00 Lab Results: Laboratory Results - last 24 hr 08/14/18 07:34 POC Glucose (mg/dL) 119 H Exam: HEENT: No upward gaze. Laceration over scalp on left LUNGS: Clear HEART: reg rhythm ABDOMEN: Soft EXTREMITIES: PPI. 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 DM: Metformin 3. Hypertension: Cozaar/Lopressor 4. CAD: Lopressor/ASA 5. DVT Prophylaxis: Heparin 6. Advanced Directives: Full code. is surrogate decision maker 08/14/18 12:24
[2018-08-14] MEDS: Atorvastatin* 20 MG TAB PO SCH (17:47)
[2018-08-15] MEDS: Heparin VIAL(*) 5000 UNITS/ML VIAL (FIVE THOUSAND) SUBCUT SCH ×3 (06:07→20:58)
[2018-08-15] MEDS: Polyethylene Glycol 3350* 17 GM PACKET PO SCH (08:33)
[2018-08-15] MEDS: metFORMIN* 500 MG TAB PO SCH ×2 (08:37→16:48)
[2018-08-15] MEDS: Aspirin EC TAB* 81 MG TAB.EC PO SCH (08:37)
[2018-08-15] MEDS: Losartan TAB* 25 MG PO SCH (08:38)
[2018-08-15] MEDS: Metoprolol Tartrate TAB* 25 MG PO SCH ×2 (08:39→20:57)
[2018-08-15] MEDS: Carbidopa/Levodop 25/100 MG TAB(*) PO SCH ×3 (08:40→20:56)
[2018-08-15] MEDS: Docusate CAP* 100 MG PO SCH ×2 (08:40→20:57)
--- NOTE | 2018-08-15 16:13 | PN ---
Progress Note Date of Service: 08/15/18 Note: TESHA AQUINO was visited. Nursing notes read and reviewed. He feels pretty good at the present time. Voice a little low today Current Medications: Active Medications Generic Name Dose Route Start Last Admin Trade Name Freq PRN Reason Stop Dose Admin Acetaminophen 650 mg 08/08/18 17:47 08/12/18 21:06 Tylenol Tab* PO 650 mg Q6H PRN Administration FEVER/PAIN Aspirin 81 mg 08/09/18 09:00 08/15/18 08:37 Aspirin Ec Tab* PO 81 mg DAILY ESTHER Administration Atorvastatin Calcium 20 mg 08/09/18 17:00 08/14/18 17:47 Lipitor* PO 20 mg 1700 ESTHER Administration Carbidopa/Levodopa 2 tab 08/08/18 21:00 08/15/18 14:41 Sinemet 25/100 Tab(*) PO 2 tab TID ESTHER Administration Cyclobenzaprine HCl 5 mg 08/08/18 17:59 08/10/18 05:10 Flexeril Tab* PO 5 mg BID PRN Administration SPASMS Docusate Sodium 100 mg 08/08/18 21:00 08/15/18 08:40 Colace Cap* PO 100 mg BID ESTHER Administration Heparin Sodium (Porcine) 5,000 units 08/08/18 22:00 08/15/18 14:36 Heparin Vial(*) SUBCUT 5,000 units Q8HR ESTHER Administration Losartan Potassium 100 mg 08/09/18 09:00 08/15/18 08:38 Cozaar Tab* PO 100 mg DAILY ESTHER Administration Magnesium Hydroxide 30 ml 08/08/18 18:04 Milk Of Magnesia Liq* PO Q6H PRN CONSTIPATION Metformin HCl 1,000 mg 08/09/18 08:00 08/15/18 08:37 Glucophage* PO 1,000 mg 0800,1700 ESTHER Administration Metoprolol Tartrate 25 mg 08/08/18 21:00 08/15/18 08:39 Lopressor Tab* PO 25 mg BID ESTHER Administration Polyethylene Glycol/Electrolytes 17 gm 08/09/18 09:00 08/15/18 08:33 Miralax* PO Not Given DAILY ESTHER Senna 2 tab 08/08/18 17:47 Senokot Tab* PO BEDTIME PRN CONSTIPATION Vital Signs: Vital Signs Temp Pulse Resp BP Pulse Ox 97.2 F 64 16 129/66 99 08/15/18 06:48 08/15/18 06:48 08/15/18 06:48 08/15/18 06:48 08/15/18 06:48 Lab Results: Laboratory Results - last 24 hr 08/15/18 07:23 POC Glucose (mg/dL) 127 H Exam: HEENT: No upward gaze. Laceration over scalp on left healing LUNGS: Clear HEART: reg rhythm ABDOMEN: Soft EXTREMITIES: PPI. 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 DM: Metformin 3. Hypertension: Cozaar/Lopressor 4. CAD: Lopressor/ASA 5. DVT Prophylaxis: Heparin 6. Advanced Directives: Full code. is surrogate decision maker 08/15/18 16:14
[2018-08-15] MEDS: Atorvastatin* 20 MG TAB PO SCH (16:48)
[2018-08-16] MEDS: Acetaminophen TAB* 325 MG PO PRN (03:28)
[2018-08-16 05:01] LABS: ABS Basophils 0.1 10^3/ul (0-0.2); ABS Eosinophils 0.3 10^3/ul (0-0.6); ABS Lymphocytes 2.1 10^3/ul (1.0-4.8); ABS Monocytes 0.7 10^3/ul (0-0.8); ABS Neutrophils 6.6 10^3/ul (1.5-7.7); ABS Nucleated RBC 0 10^3/ul; Eosinophil % 2.7 %; Hematocrit 43 % (36-46); Hemoglobin 14.1 g/dL (14.0-18.0); Lymphocyte % 21.7 %; Mean Corpuscular HGB Conc 33 g/dL (31-36); Mean Corpuscular Hemoglobin 30 pg (27-31); Mean Corpuscular Volume 91 fL (80-94); Mean Platelet Volume 8.6 fL (7.4-10.4); Nucleated Red Blood Cells % 0.1; Platelet Count 352 10^3/uL (150-450); Red Blood Count 4.72 10^6 /uL (4.18-5.48); Red Cell Distribution Width 14 % (10.5-15); White Blood Count 9.9 10^3/uL (3.5-10.8)
[2018-08-16 05:19] LABS: Albumin 3.8 g/dL (3.2-5.2); Albumin/Globulin Ratio 1.3 (1-3); BUN/Creatinine Ratio 25.3 (8-20); Calcium 8.9 mg/dL (8.6-10.3); EGFR African American 52.4 (>60); EGFR Non-African American 43.3 (>60); Total Bilirubin 0.4 mg/dL (0.2-1.0); Total Protein 6.8 g/dL (6.4-8.9)
[2018-08-16 05:21] LABS: Potassium 5.5 mmol/L (3.5-5.0)
[2018-08-16] MEDS: Aspirin EC TAB* 81 MG TAB.EC PO SCH (08:31)
[2018-08-16] MEDS: Losartan TAB* 25 MG PO SCH (08:31)
[2018-08-16] MEDS: Polyethylene Glycol 3350* 17 GM PACKET PO SCH (08:31)
[2018-08-16] MEDS: metFORMIN* 500 MG TAB PO SCH ×2 (08:31→17:23)
[2018-08-16] MEDS: Carbidopa/Levodop 25/100 MG TAB(*) PO SCH ×3 (08:31→20:38)
[2018-08-16] MEDS: Metoprolol Tartrate TAB* 25 MG PO SCH ×2 (08:31→20:38)
[2018-08-16] MEDS: Docusate CAP* 100 MG PO SCH ×2 (08:31→20:38)
[2018-08-16] MEDS: Heparin VIAL(*) 5000 UNITS/ML VIAL (FIVE THOUSAND) SUBCUT SCH ×2 (08:33→20:37)
[2018-08-16] MEDS: Atorvastatin* 20 MG TAB PO SCH (17:23)
--- NOTE | 2018-08-16 18:18 | PN ---
Progress Note Date of Service: 08/16/18 Note: TESHA AQUINO was visited. Therapy notes read and reviewed. He has no new complaints, worried about getting home Current Medications: Active Medications Generic Name Dose Route Start Last Admin Trade Name Freq PRN Reason Stop Dose Admin Acetaminophen 650 mg 08/08/18 17:47 08/16/18 03:28 Tylenol Tab* PO 650 mg Q6H PRN Administration FEVER/PAIN Aspirin 81 mg 08/09/18 09:00 08/16/18 08:31 Aspirin Ec Tab* PO 81 mg DAILY ESTHER Administration Atorvastatin Calcium 20 mg 08/09/18 17:00 08/16/18 17:23 Lipitor* PO 20 mg 1700 ESTHER Administration Carbidopa/Levodopa 2 tab 08/08/18 21:00 08/16/18 14:23 Sinemet 25/100 Tab(*) PO 2 tab TID ESTHER Administration Cyclobenzaprine HCl 5 mg 08/08/18 17:59 08/10/18 05:10 Flexeril Tab* PO 5 mg BID PRN Administration SPASMS Docusate Sodium 100 mg 08/08/18 21:00 08/16/18 08:31 Colace Cap* PO 100 mg BID ESTHER Administration Heparin Sodium (Porcine) 5,000 units 08/15/18 21:00 08/16/18 08:33 Heparin Vial(*) SUBCUT 5,000 units Q12H ESTHER Administration Losartan Potassium 100 mg 08/09/18 09:00 08/16/18 08:31 Cozaar Tab* PO 100 mg DAILY ESTHER Administration Magnesium Hydroxide 30 ml 08/08/18 18:04 Milk Of Magnesia Liq* PO Q6H PRN CONSTIPATION Metformin HCl 1,000 mg 08/09/18 08:00 08/16/18 17:23 Glucophage* PO 1,000 mg 0800,1700 ESTHER Administration Metoprolol Tartrate 25 mg 08/08/18 21:00 08/16/18 08:31 Lopressor Tab* PO 25 mg BID ESTHER Administration Polyethylene Glycol/Electrolytes 17 gm 08/09/18 09:00 08/16/18 08:31 Miralax* PO 17 gm DAILY ESTHER Administration Senna 2 tab 08/08/18 17:47 Senokot Tab* PO BEDTIME PRN CONSTIPATION Vital Signs: Vital Signs Temp Pulse Resp BP Pulse Ox 97.8 F 69 20 138/76 95 08/16/18 05:21 08/16/18 16:12 08/16/18 16:12 08/16/18 16:12 08/16/18 16:12 Lab Results: Laboratory Results - last 24 hr 08/16/18 08/16/18 04:48 04:48 WBC 9.9 RBC 4.72 Hgb 14.1 Hct 43 MCV 91 MCH 30 MCHC 33 RDW 14 Plt Count 352 MPV 8.6 Neut % (Auto) 67.2 Lymph % (Auto) 21.7 [place] % (Auto) 7.4 Eos % (Auto) 2.7 Baso % (Auto) 1.0 Absolute Neuts (auto) 6.6 Absolute Lymphs (auto) 2.1 Absolute Monos (auto) 0.7 Absolute Eos (auto) 0.3 Absolute Basos (auto) 0.1 Absolute Nucleated RBC 0 Nucleated RBC % 0.1 Sodium 134 L Potassium 5.5 H Chloride 107 Carbon Dioxide 21 L Anion Gap 6 BUN 40 H Creatinine 1.58 H Est GFR ( Amer) 52.4 Est GFR (Non-Af Amer) 43.3 BUN/Creatinine Ratio 25.3 H Glucose 113 H Calcium 8.9 Total Bilirubin 0.40 AST 11 L ALT 3 L Alkaline Phosphatase 109 H Total Protein 6.8 Albumin 3.8 Globulin 3.0 Albumin/Globulin Ratio 1.3 Exam: HEENT: No upward gaze. Laceration over scalp on left healing LUNGS: Clear HEART: reg rhythm ABDOMEN: Soft EXTREMITIES: PPI. ROM good NEUROLOGIC: muscle strength 5/5 Assessment/Plan: 1. 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 DM: Metformin 3. Hypertension: Cozaar/Lopressor 4. CAD: Lopressor/ASA 5. DVT Prophylaxis: Heparin 6. Advanced Directives: Full code. is surrogate decision maker 08/16/18 18:18
[2018-08-17] MEDS: metFORMIN* 500 MG TAB PO SCH ×2 (08:57→17:33)
[2018-08-17] MEDS: Carbidopa/Levodop 25/100 MG TAB(*) PO SCH ×3 (08:58→20:58)
[2018-08-17] MEDS: Docusate CAP* 100 MG PO SCH ×2 (08:58→20:59)
[2018-08-17] MEDS: Aspirin EC TAB* 81 MG TAB.EC PO SCH (08:58)
[2018-08-17] MEDS: Heparin VIAL(*) 5000 UNITS/ML VIAL (FIVE THOUSAND) SUBCUT SCH ×2 (08:58→21:01)
[2018-08-17] MEDS: Losartan TAB* 25 MG PO SCH (08:58)
[2018-08-17] MEDS: Metoprolol Tartrate TAB* 25 MG PO SCH ×2 (08:59→20:59)
[2018-08-17] MEDS: Polyethylene Glycol 3350* 17 GM PACKET PO SCH (09:01)
--- NOTE | 2018-08-17 12:46 | PMRUTEAM ---
PMRU: Team Meeting Current Status: Nursing: Current Status Skin Deviations [Bilateral Bruise Lower Abdomen] Skin Deviations [Left Shoulder Other ] Skin Deviations [Left 2nd Toe] Abrasion Skin Deviations [Left Temporal Abrasion ] Skin Deviation Description [ yellowish bruising Bilateral Lower Abdomen] Skin Deviation Description [ pink protrusion approx 1 cm in diam Left Shoulder] baseline per pt Skin Deviation Description [ healing Left 2nd Toe] Skin Deviation Description [ well healed - unchanged since adm Left Temporal] Drain Type [Left Shoulder] None Bladder Current Status Continent during day, urge incontinence, incontinence at night. One assist and walker to bathroom or urinal with assistance. Bowel Current Status Continent- independent. One assist and walker to bathroom. Nutrition Current Status Set up, containers opened. Pt typically eats 100% of meals. Medication Current Status Pills one or two at a time with water. Pt recognizes and verbalizes understanding of some meds. Physical Therapy: Current Status Bed Mobility Assistance Supervision Transfer Mobility Assistance Supervision,Contact Guard Assist Transfer/Bed Mobility Rolling Walker Recommended Devices Ambulation Assistance Contact Guard Assist Ambulation Assistive Devices Rolling Walker Number of Feet Patient 2x150 Ambulated Stairs Assistance Contact Guard Assist Stairs Recommended Devices Two Rails Number of Stairs 2x3 Occupational Therapy: Current Status Upper Body Dressing Min Assist Lower Body Dressing Supervision,Contact Guard Assist Bathing Supervision,Contact Guard Assist Toileting Supervision,Contact Guard Assist Toilet Transfer Supervision,Contact Guard Assist Shower Transfer Supervision,Contact Guard Assist Eating Independent Rec Therapy: Current Status Summary of Assessment and Pt. has been watching the news and sports in his Clinical Impression room, and has been open to conversation. Pt. has been pleasant and coherent with some latencies in speech. Treatment Goals Pt. will continue to engage in recreation while on the unit. Treatment Plan Continue to provide recreation services. Social Work: Current Status Discharge Plan return home with home care svs and family support Potential for Family Training pt's is involved and supportive Anticipated Discharge Home Destination Discharge With home care svs and family support Nutrition: Current Status Monitoring Pt admitted to PMRU with hx progressive supranuclear palsy. Completing 100% of most meals so far; eating independently. No evidence difficulty chewing/swallowing per nursing assessments. K+ elevated 08/09 (5.2). Pt with PAM during inpt admission - resolving. BUN/Cr: 29/1.54 (c/w previous values BUN 25-31; Cr 1.3-1.5). Hx T2DM, on Metformin at home. BG adequately controlled as inpt; generally 110s-150s. Last BM . Pt receiving appropriate consistent carb diet ; will follow K+ and suggest renal diet/K+ restriction if K+ does not improve or escalates. Full nutrition assessment to follow per protocol. Speech: Current Status Assessment Patient is progressing as expected. Patient required moderate cueing to produce lpoud harmonic voive, using resonant voice techniques Goals: Physical Therapy: Initial Goals Bed Mobility Assistance Independent Transfer Mobility Assistance Independent Transfer/Bed Mobility Rolling Walker Recommended Devices Ambulation Independent Ambulation Recommended Devices Rolling Walker Ambulation Distance 300 Stairs Assistance Independent Stair Recommended Devices Two Rails Number of Stairs 3 Physical Therapy: Updated Goals Transfer/Bed Mobility Rolling Walker Recommended Devices Occupational Therapy: Initial Goals Goals to be Completed in (Days 5-7 days ) Upper Body Bathing Routine Modified Independent with Lower Body Bathing Routine Modified Independent with Upper Body Dressing Routine Independent Lower Body Dressing Routine Modified Independent with Toilet Hygeine and Clothing Modified Independent with Management Routine Toilet Transfer Routine Modified Independent with Step-In Shower Transfer Modified Independent with Routine Functional Transfers for ADL Modified Independent with Grooming Routine Independent Feeding Routine Modified Independent with Nursing: Goals Bladder Goal Continent- independent. Bowel Goal Continent- Independent. Nutrition Goal Independent, eats 100% of meals. Medication Goal Pt independent with medications. Nutrition: Goals Intervention Goals 1. Adequate PO intake to maintain lean body mass and hydration w/o undesired wt loss 2. Pt will tolerate regular diet textures w/o difficulty swallowing 3. Electrolytes WNL w/ appropriate hydration 4. Adequate glycemic control per inpatient parameters 5. Maintain bowel regularity w/o constipation or diarrhea Speech: Goals Speech Goal 1 Voice Speech Evaluation Status Goal Mild 1 Goal 1 Comments Voice Goals: Long-Term Goal: Pt will use compensatory strategies to increase vocal loudness to moderate and speech to intelligibility to 100%, in spontaneous conversational speech, Independently, as observed by therapists, nursing and medical staff. Short-Term Goal: Pt will complete loud voice exercises and use compensatory strategies to increase vocal loudness to moderate and speech to intelligibility to 95%, in structured conversational speech, given minimal cueing, as observed by therapists, nursing and medical staff. Status: Progessing as expected. N[employer] P[employer] RANGER provided skilled instruction for patient to produce loud, steady, sustained phonation for 5 or more seconds duration at habitual, higher and lower pitches. Patient produced moderately loud voice and demonstrated the ability to improve periodicity and clarity of voice during sustained vowels, by use of resonant vpivce techniques. Speech Goal 2 Memory Speech Goal 2 Evaluation Mild Status Speech Goal 2 Comments Memory Goals: Long-Term Memory Goal: Pt will use compensatory strategies to encode and retrieve 4/4 new items after delay of 30 minutes, Independently, for independence in mobility safety, ADLs and community access. Short-term Memory Goal: Pt will use compensatory strategies to encode and retrieve 3/4 new items after delay of 5 minutes, given Moderate skilled instruction and cueing. Status: Progressing as expected. Speech Goal 3 Problem Solving Speech Goal 3 Evaluation Mild Status Speech Goal 3 Comments Problem Solving Goals: Long-Term Goal: Pt will use compensatory strategies to solve moderately complex routine problems, with 100% accuracy, Independently, for personal safety and ADLs such as shopping, time and money management. Short-Term Goal: Pt will use compensatory strategies to solve simple routine problems, with 80% accuracy, given Moderate skilled instruction and cueing, for personal safety and ADLs such as shopping, time and money management. Status: Progressing as expected. N[employer] P[employer] RANGER presented visual puzzle game Hex, previosuly unknown patient, explained the rules and demonstrated play. After 2 games on small 3x3 boards, and 4 games on 4x4 board, patient demonstrated mastery and the ability win whenever he moved first. Patient was able to locate the one move in contention between the two players at each turn, in a puzzle where a single mistake leads to loss. Social Work: Goals Discharge Plan return home with home care svs and family support Potential for Family Training pt's is involved and supportive Anticipated Discharge Home Destination Discharge With home care svs and family support Care Plan: Care Plan ADL's - Improve/Maintain Start: 08/09/18 17:42 Freq: DAILY Status: Active Target: Protocol: Activity Type Activity Date Activity User E-Sign Co-Sign Detail Recorded Client Recorded Date Recorded By Document 08/11/18 15:40 [id number] 08/11/18 15:41 [id number] 08/11/18 15:40 PMRU Outcome: ADL's/ADL Transfers Orders/Interventions Occupational Therapy Evaluation & Treatment Device Yes Patient to receive OT 5x/wk for 60-120 Therex min/day Self Care Management Group Therapy Neuromuscular ReEducation UE/LE ADL's with Assist Yes ADL Transfers with Assist Yes Toileting: Transfers,Clothing Management Yes ,Hygeine w/Assist Light Kitchen/Laundry w/Assist Yes Progression Toward Outcome/Goals Progressing Outcome/Goals Met Pt tolerates tx session well this date. Continues to be incontinent. Communication-Improve/Maintain Start: 08/09/18 17:42 Freq: DAILY Status: Active Target: Protocol: Activity Type Activity Date Activity User E-Sign Co-Sign Detail Recorded Client Recorded Date Recorded By Document 08/16/18 17:49 [id number] 08/16/18 17:49 [id number] 08/16/18 17:49 PMRU Outcome: Communication/Cognitive Status Outcome/Goals Makes Needs Known Effectively Other Outcomes/Goals Long-Term Memory Goal: Pt will use compensatory strategies to encode and retrieve 4/4 new items after delay of 30 minutes, Independently, for independence in mobility safety, ADLs and community access. Short-term Memory Goal: Pt will use compensatory strategies to encode and retrieve 3/4 new items after delay of 5 minutes, given Moderate skilled instruction and cueing. Status: Progressing as expected Problem Solving Goals: Long-Term Goal: Pt will use compensatory strategies to solve moderately complex routine problems, with 100% accuracy, Independently, for personal safety and ADLs such as shopping, time and money management. Short-Term Goal : Pt will use compensatory strategies to solve simple routine problems, with 80% accuracy, given Moderate skilled instruction and cueing, for personal safety and ADLs such as shopping, time and money management. Status: Progressing as expected. Progression Toward Outcomes/Goals Progressing Outcome/Goals Met Comment Patient is progressing as expected. Patient required moderate cueing to produce lpoud harmonic voive, using resonant voice techniques Discharge Planning - Improve/Maintain Start: 08/09/18 17:42 Freq: DAILY Status: Active Target: Protocol: Activity Type Activity Date Activity User E-Sign Co-Sign Detail Recorded Client Recorded Date Recorded By Document 08/17/18 02:35 [id number] 08/17/18 02:36 [id number] 08/17/18 02:35 PMRU Outcome: Discharge Planning Update Patient Family No Outcome/Goals Demonstrates Understanding of Discharge Plan Progression Toward Outcome/Goals Progressing /GI-Improve/Maintain Start: 08/09/18 17:42 Freq: QSHIFT Status: Active Target: Protocol: Activity Type Activity Date Activity User E-Sign Co-Sign Detail Recorded Client Recorded Date Recorded By Document 08/17/18 02:35 [id number] 08/17/18 02:35 [id number] 08/17/18 02:35 PMRU Outcome: Genitourinary/ Gastrointestinal Genitourinary- Outcome/Goals Maintain/ Achieve Urinary Continence Gastrointestinal-Outcome/Goals Maintain/ Achieve Bowel Regularity in Accordance with Pt's Baseline Progression Toward Outcome/Goals - Progressing Progression Toward Outcome/Goals - GI Progressing Neurological- Improve/Maintain Start: 08/09/18 17:42 Freq: QSHIFT Status: Active Target: Protocol: Activity Type Activity Date Activity User E-Sign Co-Sign Detail Recorded Client Recorded Date Recorded By Document 08/17/18 02:35 [id number] 08/17/18 02:35 [id number] 08/17/18 02:35 PMRU Outcome: Neurological Weakness/Aphasia Weakness Left Side Outcome/Goals Maintain/ Achieve Baseline Neurological Status Improve Neurological Status Prevent Avoidable Neurological Decline Maintain/ Improve Strength/ROM Progression Toward Outcome/Goals Progressing Safety- Improve/Maintain Start: 08/09/18 17:42 Freq: QSHIFT Status: Active Target: Protocol: Activity Type Activity Date Activity User E-Sign Co-Sign Detail Recorded Client Recorded Date Recorded By Document 08/17/18 02:35 [id number] 08/17/18 02:35 [id number] 08/17/18 02:35 PMRU Outcome: Safety Outcome/Goals Remain Free of Injury or Harm Cooperates with Safety Measures for Least Restrictive Environment Progression Toward Outcome/Goals Progressing Outcome/Goals Met Comment BA and/or tamper proof PA in use Medicine Note: Length of Stay: 7 days Anticipated Discharge Destination: Home Tentative Discharge Date: 08/24/18 Discharged to: Home
[2018-08-17] MEDS: Atorvastatin* 20 MG TAB PO SCH (17:33)
--- NOTE | 2018-08-17 17:44 | PN ---
Progress Note Date of Service: 08/17/18 Note: TESHA AQUINO was visited. Therapy notes read and reviewed. He was discussed in interdisciplinary team rounds. Some concerns about his ability to be left alone Current Medications: Active Medications Generic Name Dose Route Start Last Admin Trade Name Freq PRN Reason Stop Dose Admin Acetaminophen 650 mg 08/08/18 17:47 08/16/18 03:28 Tylenol Tab* PO 650 mg Q6H PRN Administration FEVER/PAIN Aspirin 81 mg 08/09/18 09:00 08/17/18 08:58 Aspirin Ec Tab* PO 81 mg DAILY ESTHER Administration Atorvastatin Calcium 20 mg 08/09/18 17:00 08/17/18 17:33 Lipitor* PO 20 mg 1700 ESTHER Administration Carbidopa/Levodopa 2 tab 08/08/18 21:00 08/17/18 14:57 Sinemet 25/100 Tab(*) PO 2 tab TID ESTHER Administration Cyclobenzaprine HCl 5 mg 08/08/18 17:59 08/10/18 05:10 Flexeril Tab* PO 5 mg BID PRN Administration SPASMS Docusate Sodium 100 mg 08/08/18 21:00 08/17/18 08:58 Colace Cap* PO 100 mg BID ESTHER Administration Heparin Sodium (Porcine) 5,000 units 08/15/18 21:00 08/17/18 08:58 Heparin Vial(*) SUBCUT 5,000 units Q12H ESTHER Administration Losartan Potassium 100 mg 08/09/18 09:00 08/17/18 08:58 Cozaar Tab* PO 100 mg DAILY ESTHER Administration Magnesium Hydroxide 30 ml 08/08/18 18:04 Milk Of Magnesia Liq* PO Q6H PRN CONSTIPATION Metformin HCl 1,000 mg 08/09/18 08:00 08/17/18 17:33 Glucophage* PO 1,000 mg 0800,1700 ESTHER Administration Metoprolol Tartrate 25 mg 08/08/18 21:00 08/17/18 08:59 Lopressor Tab* PO 25 mg BID ESTHER Administration Polyethylene Glycol/Electrolytes 17 gm 08/09/18 09:00 08/17/18 09:01 Miralax* PO Not Given DAILY ESTHER Senna 2 tab 08/08/18 17:47 Senokot Tab* PO BEDTIME PRN CONSTIPATION Vital Signs: Vital Signs Temp Pulse Resp BP Pulse Ox 97.4 F 64 16 133/70 95 08/17/18 05:37 08/17/18 05:37 08/17/18 05:37 08/17/18 05:37 08/17/18 05:37 Lab Results: Laboratory Results - last 24 hr 08/17/18 07:44 POC Glucose (mg/dL) 112 H Exam: HEENT: No upward gaze. Laceration over scalp on left healing LUNGS: Clear HEART: reg rhythm ABDOMEN: Soft EXTREMITIES: PPI. ROM good NEUROLOGIC: muscle strength 5/5 Assessment/Plan: 1. 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 DM: Metformin, will d/c fingersticks 3. Hypertension: Cozaar/Lopressor 4. CAD: Lopressor/ASA 5. DVT Prophylaxis: Heparin 6. Advanced Directives: Full code. is surrogate decision maker 08/17/18 17:44
[2018-08-17] MEDS: Acetaminophen TAB* 325 MG PO PRN (21:30)
[2018-08-18] MEDS: metFORMIN* 500 MG TAB PO SCH ×2 (09:11→16:29)
[2018-08-18] MEDS: Losartan TAB* 25 MG PO SCH (09:12)
[2018-08-18] MEDS: Carbidopa/Levodop 25/100 MG TAB(*) PO SCH ×3 (09:12→20:52)
[2018-08-18] MEDS: Heparin VIAL(*) 5000 UNITS/ML VIAL (FIVE THOUSAND) SUBCUT SCH ×2 (09:12→20:54)
[2018-08-18] MEDS: Metoprolol Tartrate TAB* 25 MG PO SCH ×2 (09:12→20:52)
[2018-08-18] MEDS: Aspirin EC TAB* 81 MG TAB.EC PO SCH (09:12)
[2018-08-18] MEDS: Docusate CAP* 100 MG PO SCH ×2 (09:12→20:52)
[2018-08-18] MEDS: Polyethylene Glycol 3350* 17 GM PACKET PO SCH (09:21)
[2018-08-18] MEDS: Atorvastatin* 20 MG TAB PO SCH (16:28)
--- NOTE | 2018-08-18 19:20 | PN ---
Progress Note Date of Service: 08/18/18 Note: TESHA AQUINO was visited. Therapy notes read and reviewed. He had a good day today with therapy. Feels a little stronger. No complaints Current Medications: Active Medications Generic Name Dose Route Start Last Admin Trade Name Freq PRN Reason Stop Dose Admin Acetaminophen 650 mg 08/08/18 17:47 08/17/18 21:30 Tylenol Tab* PO 650 mg Q6H PRN Administration FEVER/PAIN Aspirin 81 mg 08/09/18 09:00 08/18/18 09:12 Aspirin Ec Tab* PO 81 mg DAILY ESTHER Administration Atorvastatin Calcium 20 mg 08/09/18 17:00 08/18/18 16:28 Lipitor* PO 20 mg 1700 ESTHER Administration Carbidopa/Levodopa 2 tab 08/08/18 21:00 08/18/18 14:44 Sinemet 25/100 Tab(*) PO 2 tab TID ESTHER Administration Cyclobenzaprine HCl 5 mg 08/08/18 17:59 08/10/18 05:10 Flexeril Tab* PO 5 mg BID PRN Administration SPASMS Docusate Sodium 100 mg 08/08/18 21:00 08/18/18 09:12 Colace Cap* PO 100 mg BID ESTHER Administration Heparin Sodium (Porcine) 5,000 units 08/15/18 21:00 08/18/18 09:12 Heparin Vial(*) SUBCUT 5,000 units Q12H ESTHER Administration Losartan Potassium 100 mg 08/09/18 09:00 08/18/18 09:12 Cozaar Tab* PO 100 mg DAILY ESTHER Administration Magnesium Hydroxide 30 ml 08/08/18 18:04 Milk Of Magnesia Liq* PO Q6H PRN CONSTIPATION Metformin HCl 1,000 mg 08/09/18 08:00 08/18/18 16:29 Glucophage* PO 1,000 mg 0800,1700 ESTHER Administration Metoprolol Tartrate 25 mg 08/08/18 21:00 08/18/18 09:12 Lopressor Tab* PO 25 mg BID ESTHER Administration Polyethylene Glycol/Electrolytes 17 gm 08/09/18 09:00 08/18/18 09:21 Miralax* PO Not Given DAILY ESTHER Senna 2 tab 08/08/18 17:47 Senokot Tab* PO BEDTIME PRN CONSTIPATION Vital Signs: Vital Signs Temp Pulse Resp BP Pulse Ox 97.3 F 72 20 134/69 96 08/18/18 16:25 08/18/18 16:25 08/18/18 16:25 08/18/18 16:25 08/18/18 16:25 Lab Results: Laboratory Results - last 24 hr 08/18/18 07:27 POC Glucose (mg/dL) 72 Exam: HEENT: No upward gaze. Laceration over scalp on left healing LUNGS: Clear HEART: reg rhythm ABDOMEN: Soft EXTREMITIES: PPI. ROM good NEUROLOGIC: muscle strength 5/5 Assessment/Plan: 1. 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 DM: Metformin, have stopped fingersticks 3. Hypertension: Cozaar/Lopressor 4. CAD: Lopressor/ASA 5. DVT Prophylaxis: Heparin 6. Advanced Directives: Full code. is surrogate decision maker 08/18/18 19:20
[2018-08-19 05:17] LABS: BUN/Creatinine Ratio 24.8 (8-20); Calcium 8.9 mg/dL (8.6-10.3); EGFR African American 49.9 (>60); EGFR Non-African American 41.2 (>60)
[2018-08-19 05:18] LABS: Potassium 5.1 mmol/L (3.5-5.0)
[2018-08-19] MEDS: Metoprolol Tartrate TAB* 25 MG PO SCH ×2 (09:11→21:29)
[2018-08-19] MEDS: metFORMIN* 500 MG TAB PO SCH ×2 (09:11→17:18)
[2018-08-19] MEDS: Carbidopa/Levodop 25/100 MG TAB(*) PO SCH ×3 (09:11→21:28)
[2018-08-19] MEDS: Polyethylene Glycol 3350* 17 GM PACKET PO SCH (09:11)
[2018-08-19] MEDS: Heparin VIAL(*) 5000 UNITS/ML VIAL (FIVE THOUSAND) SUBCUT SCH ×2 (09:11→21:35)
[2018-08-19] MEDS: Docusate CAP* 100 MG PO SCH ×2 (09:11→21:29)
[2018-08-19] MEDS: Losartan TAB* 25 MG PO SCH (09:11)
[2018-08-19] MEDS: Aspirin EC TAB* 81 MG TAB.EC PO SCH (09:11)
[2018-08-19] MEDS: Atorvastatin* 20 MG TAB PO SCH (17:18)
--- NOTE | 2018-08-19 21:13 | PN ---
Progress Note Date of Service: 08/19/18 Note: TESHA AQUINO was visited. Therapy notes read and reviewed. He did well with therapy today and otherwise feels good. No complaints other than his low voice Current Medications: Active Medications Generic Name Dose Route Start Last Admin Trade Name Freq PRN Reason Stop Dose Admin Acetaminophen 650 mg 08/08/18 17:47 08/17/18 21:30 Tylenol Tab* PO 650 mg Q6H PRN Administration FEVER/PAIN Aspirin 81 mg 08/09/18 09:00 08/19/18 09:11 Aspirin Ec Tab* PO 81 mg DAILY ESTHER Administration Atorvastatin Calcium 20 mg 08/09/18 17:00 08/19/18 17:18 Lipitor* PO 20 mg 1700 ESTHER Administration Carbidopa/Levodopa 2 tab 08/08/18 21:00 08/19/18 14:13 Sinemet 25/100 Tab(*) PO 2 tab TID ESTHER Administration Cyclobenzaprine HCl 5 mg 08/08/18 17:59 08/10/18 05:10 Flexeril Tab* PO 5 mg BID PRN Administration SPASMS Docusate Sodium 100 mg 08/08/18 21:00 08/19/18 09:11 Colace Cap* PO 100 mg BID ESTHER Administration Heparin Sodium (Porcine) 5,000 units 08/15/18 21:00 08/19/18 09:11 Heparin Vial(*) SUBCUT 5,000 units Q12H ESTHER Administration Losartan Potassium 100 mg 08/09/18 09:00 08/19/18 09:11 Cozaar Tab* PO 100 mg DAILY ESTHER Administration Magnesium Hydroxide 30 ml 08/08/18 18:04 Milk Of Magnesia Liq* PO Q6H PRN CONSTIPATION Metformin HCl 1,000 mg 08/09/18 08:00 08/19/18 17:18 Glucophage* PO 1,000 mg 0800,1700 ESTHER Administration Metoprolol Tartrate 25 mg 08/08/18 21:00 08/19/18 09:11 Lopressor Tab* PO 25 mg BID ESTHER Administration Polyethylene Glycol/Electrolytes 17 gm 08/09/18 09:00 08/19/18 09:11 Miralax* PO Not Given DAILY ESTHER Senna 2 tab 08/08/18 17:47 Senokot Tab* PO BEDTIME PRN CONSTIPATION Vital Signs: Vital Signs Temp Pulse Resp BP Pulse Ox 97.9 F 76 18 149/75 95 08/19/18 16:24 08/19/18 16:24 08/19/18 16:24 08/19/18 16:24 08/19/18 16:24 Lab Results: Laboratory Results - last 24 hr 08/19/18 08/19/18 04:53 08:13 Sodium 136 Potassium 5.1 H Chloride 110 Carbon Dioxide 21 L Anion Gap 5 BUN 41 H Creatinine 1.65 H Est GFR ( Amer) 49.9 Est GFR (Non-Af Amer) 41.2 BUN/Creatinine Ratio 24.8 H Glucose 122 H POC Glucose (mg/dL) 130 H Calcium 8.9 Exam: HEENT: No upward gaze. Laceration over scalp on left healing LUNGS: Clear HEART: reg rhythm ABDOMEN: Soft EXTREMITIES: PPI. ROM good NEUROLOGIC: muscle strength 5/5 Assessment/Plan: 1. 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 DM: Metformin, have stopped fingersticks 3. Hypertension: Cozaar/Lopressor 4. CAD: Lopressor/ASA 5. DVT Prophylaxis: Heparin 6. Advanced Directives: Full code. is surrogate decision maker 08/19/18 21:13
[2018-08-20] MEDS: Metoprolol Tartrate TAB* 25 MG PO SCH ×2 (08:46→21:38)
[2018-08-20] MEDS: metFORMIN* 500 MG TAB PO SCH ×2 (08:46→17:32)
[2018-08-20] MEDS: Aspirin EC TAB* 81 MG TAB.EC PO SCH (08:47)
[2018-08-20] MEDS: Heparin VIAL(*) 5000 UNITS/ML VIAL (FIVE THOUSAND) SUBCUT SCH ×2 (08:47→21:39)
[2018-08-20] MEDS: Docusate CAP* 100 MG PO SCH ×2 (08:47→21:38)
[2018-08-20] MEDS: Carbidopa/Levodop 25/100 MG TAB(*) PO SCH ×3 (08:47→21:37)
[2018-08-20] MEDS: Losartan TAB* 25 MG PO SCH (08:47)
[2018-08-20] MEDS: Polyethylene Glycol 3350* 17 GM PACKET PO SCH (08:48)
--- NOTE | 2018-08-20 10:10 | PN ---
Progress Note Date of Service: 08/20/18 Note: TESHA AQUINO was visited. Nursing and therapy notes read and reviewed. No chest pain, shortness of breath or abdominal pain. No new issues. BP elevated this morning but better when done manually. Current Medications: Active Medications Generic Name Dose Route Start Last Admin Trade Name Freq PRN Reason Stop Dose Admin Acetaminophen 650 mg 08/08/18 17:47 08/17/18 21:30 Tylenol Tab* PO 650 mg Q6H PRN Administration FEVER/PAIN Aspirin 81 mg 08/09/18 09:00 08/20/18 08:47 Aspirin Ec Tab* PO 81 mg DAILY ESTHER Administration Atorvastatin Calcium 20 mg 08/09/18 17:00 08/19/18 17:18 Lipitor* PO 20 mg 1700 ESTHER Administration Carbidopa/Levodopa 2 tab 08/08/18 21:00 08/20/18 08:47 Sinemet 25/100 Tab(*) PO 2 tab TID ESTHER Administration Cyclobenzaprine HCl 5 mg 08/08/18 17:59 08/10/18 05:10 Flexeril Tab* PO 5 mg BID PRN Administration SPASMS Docusate Sodium 100 mg 08/08/18 21:00 08/20/18 08:47 Colace Cap* PO 100 mg BID ESTHER Administration Heparin Sodium (Porcine) 5,000 units 08/15/18 21:00 08/20/18 08:47 Heparin Vial(*) SUBCUT 5,000 units Q12H ESTHER Administration Losartan Potassium 100 mg 08/09/18 09:00 08/20/18 08:47 Cozaar Tab* PO 100 mg DAILY ESTHER Administration Magnesium Hydroxide 30 ml 08/08/18 18:04 Milk Of Magnesia Liq* PO Q6H PRN CONSTIPATION Metformin HCl 1,000 mg 08/09/18 08:00 08/20/18 08:46 Glucophage* PO 1,000 mg 0800,1700 ESTHER Administration Metoprolol Tartrate 25 mg 08/08/18 21:00 08/20/18 08:46 Lopressor Tab* PO 25 mg BID ESTHER Administration Polyethylene Glycol/Electrolytes 17 gm 08/09/18 09:00 08/20/18 08:48 Miralax* PO Not Given DAILY ESTHER Senna 2 tab 08/08/18 17:47 Senokot Tab* PO BEDTIME PRN CONSTIPATION Vital Signs: Vital Signs Temp Pulse Resp BP Pulse Ox 98.5 F 76 20 147/83 95 08/20/18 08:46 08/20/18 08:46 08/20/18 08:46 08/20/18 08:46 08/20/18 08:46 Exam: GEN: no acute distress. alert and appropriate. HEENT: No upward gaze. Laceration over scalp on left healing LUNGS: Clear to auscultation bilaterally. HEART: regular rate and rhythm ABDOMEN: Soft, + bowel sounds, non-tender, non-distended EXTREMITIES: No edema. 2+ pedal pulses. NEUROLOGIC: Motor 5/5 bue/ble with normal sensation. decreased blinking and rigidity. Assessment/Plan: 1. 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 DM: Metformin. No fingersticks 3. Hypertension: Cozaar/Lopressor 4. CAD: Lopressor/ASA 5. DVT Prophylaxis: Heparin 6. Advanced Directives: Full code. is surrogate decision maker 08/20/18 10:10
[2018-08-20] MEDS: Atorvastatin* 20 MG TAB PO SCH (17:32)
[2018-08-21] MEDS: metFORMIN* 500 MG TAB PO SCH ×2 (09:06→17:17)
[2018-08-21] MEDS: Carbidopa/Levodop 25/100 MG TAB(*) PO SCH ×3 (09:07→20:08)
[2018-08-21] MEDS: Aspirin EC TAB* 81 MG TAB.EC PO SCH (09:07)
[2018-08-21] MEDS: Losartan TAB* 25 MG PO SCH (09:08)
[2018-08-21] MEDS: Docusate CAP* 100 MG PO SCH ×2 (09:08→20:09)
[2018-08-21] MEDS: Metoprolol Tartrate TAB* 25 MG PO SCH ×2 (09:08→20:09)
[2018-08-21] MEDS: Polyethylene Glycol 3350* 17 GM PACKET PO SCH (09:09)
[2018-08-21] MEDS: Heparin VIAL(*) 5000 UNITS/ML VIAL (FIVE THOUSAND) SUBCUT SCH ×2 (09:09→20:10)
--- NOTE | 2018-08-21 10:29 | PN ---
Progress Note Date of Service: 08/21/18 Note: TESHA AQUINO was visited. Nursing and therapy notes read and reviewed. Yesterday there was concern of aide that he was not moving his left arm as well and slurring speech. Assessment by nurse and also myself showed no focal new changes. He feels fine this morning. No chest pain, shortness of breath or abdominal pain. Current Medications: Active Medications Generic Name Dose Route Start Last Admin Trade Name Freq PRN Reason Stop Dose Admin Acetaminophen 650 mg 08/08/18 17:47 08/17/18 21:30 Tylenol Tab* PO 650 mg Q6H PRN Administration FEVER/PAIN Aspirin 81 mg 08/09/18 09:00 08/21/18 09:07 Aspirin Ec Tab* PO 81 mg DAILY ESTHER Administration Atorvastatin Calcium 20 mg 08/09/18 17:00 08/20/18 17:32 Lipitor* PO 20 mg 1700 ESTHER Administration Carbidopa/Levodopa 2 tab 08/08/18 21:00 08/21/18 09:07 Sinemet 25/100 Tab(*) PO 2 tab TID ESTHER Administration Cyclobenzaprine HCl 5 mg 08/08/18 17:59 08/10/18 05:10 Flexeril Tab* PO 5 mg BID PRN Administration SPASMS Docusate Sodium 100 mg 08/08/18 21:00 08/21/18 09:08 Colace Cap* PO 100 mg BID ESTHER Administration Heparin Sodium (Porcine) 5,000 units 08/15/18 21:00 08/21/18 09:09 Heparin Vial(*) SUBCUT 5,000 units Q12H ESTHER Administration Losartan Potassium 100 mg 08/09/18 09:00 08/21/18 09:08 Cozaar Tab* PO 100 mg DAILY ESTHER Administration Magnesium Hydroxide 30 ml 08/08/18 18:04 Milk Of Magnesia Liq* PO Q6H PRN CONSTIPATION Metformin HCl 1,000 mg 08/09/18 08:00 08/21/18 09:06 Glucophage* PO 1,000 mg 0800,1700 ESTHER Administration Metoprolol Tartrate 25 mg 08/08/18 21:00 08/21/18 09:08 Lopressor Tab* PO 25 mg BID ESTHER Administration Polyethylene Glycol/Electrolytes 17 gm 08/09/18 09:00 08/21/18 09:09 Miralax* PO Not Given DAILY ESTHER Senna 2 tab 08/08/18 17:47 Senokot Tab* PO BEDTIME PRN CONSTIPATION Vital Signs: Vital Signs Temp Pulse Resp BP Pulse Ox 98.3 F 63 16 133/77 92 08/21/18 05:02 08/21/18 05:02 08/21/18 05:02 08/21/18 05:02 08/21/18 05:02 Exam: GEN: no acute distress. alert and appropriate. HEENT: No upward gaze. Laceration over scalp on left healing LUNGS: Clear to auscultation bilaterally. HEART: regular rate and rhythm ABDOMEN: Soft, + bowel sounds, non-tender, non-distended EXTREMITIES: No edema. 2+ pedal pulses. NEUROLOGIC: Motor 5/5 bue/ble with normal sensation. decreased blinking and rigidity. Assessment/Plan: 1. 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 DM: Metformin. No fingersticks 3. Hypertension: Cozaar/Lopressor 4. CAD: Lopressor/ASA 5. DVT Prophylaxis: Heparin 6. Advanced Directives: Full code. is surrogate decision maker 08/21/18 10:28
[2018-08-21] MEDS: Atorvastatin* 20 MG TAB PO SCH (17:17)
[2018-08-22] MEDS: metFORMIN* 500 MG TAB PO SCH ×2 (09:19→16:40)
[2018-08-22] MEDS: Heparin VIAL(*) 5000 UNITS/ML VIAL (FIVE THOUSAND) SUBCUT SCH ×2 (09:20→20:46)
[2018-08-22] MEDS: Losartan TAB* 25 MG PO SCH (09:20)
[2018-08-22] MEDS: Docusate CAP* 100 MG PO SCH ×2 (09:21→20:46)
[2018-08-22] MEDS: Carbidopa/Levodop 25/100 MG TAB(*) PO SCH ×3 (09:21→20:43)
[2018-08-22] MEDS: Metoprolol Tartrate TAB* 25 MG PO SCH ×2 (09:22→20:44)
[2018-08-22] MEDS: Aspirin EC TAB* 81 MG TAB.EC PO SCH (09:22)
[2018-08-22] MEDS: Polyethylene Glycol 3350* 17 GM PACKET PO SCH (09:22)
--- NOTE | 2018-08-22 09:25 | PN ---
Progress Note Date of Service: 08/22/18 Note: TESHA AQUINO was visited. Nursing notes read and reviewed. No chest pain, shortness of breath or abdominal pain. Current Medications: Active Medications Generic Name Dose Route Start Last Admin Trade Name Freq PRN Reason Stop Dose Admin Acetaminophen 650 mg 08/08/18 17:47 08/17/18 21:30 Tylenol Tab* PO 650 mg Q6H PRN Administration FEVER/PAIN Aspirin 81 mg 08/09/18 09:00 08/21/18 09:07 Aspirin Ec Tab* PO 81 mg DAILY ESTHER Administration Atorvastatin Calcium 20 mg 08/09/18 17:00 08/21/18 17:17 Lipitor* PO 20 mg 1700 ESTHER Administration Carbidopa/Levodopa 2 tab 08/08/18 21:00 08/22/18 09:21 Sinemet 25/100 Tab(*) PO 2 tab TID ESTHER Administration Cyclobenzaprine HCl 5 mg 08/08/18 17:59 08/10/18 05:10 Flexeril Tab* PO 5 mg BID PRN Administration SPASMS Docusate Sodium 100 mg 08/08/18 21:00 08/22/18 09:21 Colace Cap* PO 100 mg BID ESTHER Administration Heparin Sodium (Porcine) 5,000 units 08/15/18 21:00 08/22/18 09:20 Heparin Vial(*) SUBCUT 5,000 units Q12H ESTHER Administration Losartan Potassium 100 mg 08/09/18 09:00 08/22/18 09:20 Cozaar Tab* PO 100 mg DAILY ESTHER Administration Magnesium Hydroxide 30 ml 08/08/18 18:04 Milk Of Magnesia Liq* PO Q6H PRN CONSTIPATION Metformin HCl 1,000 mg 08/09/18 08:00 08/22/18 09:19 Glucophage* PO 1,000 mg 0800,1700 ESTHER Administration Metoprolol Tartrate 25 mg 08/08/18 21:00 08/21/18 20:09 Lopressor Tab* PO 25 mg BID ESTHER Administration Polyethylene Glycol/Electrolytes 17 gm 08/09/18 09:00 08/21/18 09:09 Miralax* PO Not Given DAILY ESTHER Senna 2 tab 08/08/18 17:47 Senokot Tab* PO BEDTIME PRN CONSTIPATION Vital Signs: Vital Signs Temp Pulse Resp BP Pulse Ox 97.4 F 61 18 140/72 97 08/22/18 06:15 08/22/18 06:15 08/22/18 06:15 08/22/18 06:20 08/22/18 06:15 Exam: GEN: no acute distress. alert and appropriate. HEENT: No upward gaze. Laceration over scalp on left healing LUNGS: Clear to auscultation bilaterally. HEART: regular rate and rhythm ABDOMEN: Soft, + bowel sounds, non-tender, non-distended EXTREMITIES: No edema. 2+ pedal pulses. NEUROLOGIC: Motor 5/5 bue/ble with normal sensation. decreased blinking and rigidity. He naturally uses his right hand more because it is his dominant side and he also reports his "palsy" has always been worse on the left. I had noted he did not use his left hand cutting food and just used the knife in his right hand. Assessment/Plan: 1. 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 Sinemet 2 TID. I d/w him forcing himself to use the left more for functional activities as well as regular stretching and ROM. 2. DM: Metformin. No fingersticks. Stable chronic renal insufficiency on metformin. 3. Hypertension: Cozaar/Lopressor 4. CAD: Lopressor/ASA 5. DVT Prophylaxis: Heparin 6. Advanced Directives: Full code. is surrogate decision maker 08/22/18 09:24
[2018-08-22] MEDS: Atorvastatin* 20 MG TAB PO SCH (16:40)
[2018-08-22] MEDS: Senna TAB PO PRN (20:44)
[2018-08-23 05:18] LABS: ABS Basophils 0.1 10^3/ul (0-0.2); ABS Eosinophils 0.3 10^3/ul (0-0.6); ABS Lymphocytes 2.1 10^3/ul (1.0-4.8); ABS Monocytes 0.6 10^3/ul (0-0.8); ABS Neutrophils 4.9 10^3/ul (1.5-7.7); ABS Nucleated RBC 0 10^3/ul; Eosinophil % 4.2 %; Hematocrit 42 % (36-46); Hemoglobin 13.9 g/dL (14.0-18.0); Lymphocyte % 26.4 %; Mean Corpuscular HGB Conc 33 g/dL (31-36); Mean Corpuscular Hemoglobin 30 pg (27-31); Mean Corpuscular Volume 90 fL (80-94); Mean Platelet Volume 8.6 fL (7.4-10.4); Nucleated Red Blood Cells % 0; Platelet Count 302 10^3/uL (150-450); Red Blood Count 4.68 10^6 /uL (4.18-5.48); Red Cell Distribution Width 14 % (10.5-15); White Blood Count 8.1 10^3/uL (3.5-10.8)
[2018-08-23 05:40] LABS: Albumin 3.5 g/dL (3.2-5.2); Albumin/Globulin Ratio 1.3 (1-3); Calcium 8.7 mg/dL (8.6-10.3); EGFR African American 58.3 (>60); EGFR Non-African American 48.2 (>60); Globulin 2.8 g/dL (2-4); Potassium 4.6 mmol/L (3.5-5.0); Total Bilirubin 0.3 mg/dL (0.2-1.0); Total Protein 6.3 g/dL (6.4-8.9)
[2018-08-23] MEDS: Carbidopa/Levodop 25/100 MG TAB(*) PO SCH ×3 (09:30→20:52)
[2018-08-23] MEDS: Polyethylene Glycol 3350* 17 GM PACKET PO SCH (09:30)
[2018-08-23] MEDS: Metoprolol Tartrate TAB* 25 MG PO SCH ×2 (09:30→20:52)
[2018-08-23] MEDS: Aspirin EC TAB* 81 MG TAB.EC PO SCH (09:31)
[2018-08-23] MEDS: Losartan TAB* 25 MG PO SCH (09:31)
[2018-08-23] MEDS: metFORMIN* 500 MG TAB PO SCH ×2 (09:31→17:11)
[2018-08-23] MEDS: Heparin VIAL(*) 5000 UNITS/ML VIAL (FIVE THOUSAND) SUBCUT SCH ×2 (09:32→20:54)
[2018-08-23] MEDS: Docusate CAP* 100 MG PO SCH ×2 (09:32→21:00)
[2018-08-23] MEDS: Atorvastatin* 20 MG TAB PO SCH (17:11)
--- NOTE | 2018-08-23 18:02 | PN ---
Progress Note Date of Service: 08/23/18 Note: TESHA AQUINO was visited. Therapy notes read and reviewed. I met with Tesha and his along with our SW to discuss upcoming discharge and recommendations of therapist. They are recommending 24 hour supervision. will arrange. Current Medications: Active Medications Generic Name Dose Route Start Last Admin Trade Name Freq PRN Reason Stop Dose Admin Acetaminophen 650 mg 08/08/18 17:47 08/17/18 21:30 Tylenol Tab* PO 650 mg Q6H PRN Administration FEVER/PAIN Aspirin 81 mg 08/09/18 09:00 08/23/18 09:31 Aspirin Ec Tab* PO 81 mg DAILY ESTHER Administration Atorvastatin Calcium 20 mg 08/09/18 17:00 08/23/18 17:11 Lipitor* PO 20 mg 1700 ESTHER Administration Carbidopa/Levodopa 2 tab 08/08/18 21:00 08/23/18 14:40 Sinemet 25/100 Tab(*) PO 2 tab TID ESTHER Administration Cyclobenzaprine HCl 5 mg 08/08/18 17:59 08/10/18 05:10 Flexeril Tab* PO 5 mg BID PRN Administration SPASMS Docusate Sodium 100 mg 08/08/18 21:00 08/23/18 09:32 Colace Cap* PO 100 mg BID ESTHER Administration Heparin Sodium (Porcine) 5,000 units 08/15/18 21:00 08/23/18 09:32 Heparin Vial(*) SUBCUT 5,000 units Q12H ESTHER Administration Losartan Potassium 100 mg 08/09/18 09:00 08/23/18 09:31 Cozaar Tab* PO 100 mg DAILY ESTHER Administration Magnesium Hydroxide 30 ml 08/08/18 18:04 Milk Of Magnesia Liq* PO Q6H PRN CONSTIPATION Metformin HCl 1,000 mg 08/09/18 08:00 08/23/18 17:11 Glucophage* PO 1,000 mg 0800,1700 ESTHER Administration Metoprolol Tartrate 25 mg 08/08/18 21:00 08/23/18 09:30 Lopressor Tab* PO 25 mg BID ESTHER Administration Polyethylene Glycol/Electrolytes 17 gm 08/09/18 09:00 08/23/18 09:30 Miralax* PO 17 gm DAILY ESTHER Administration Senna 2 tab 08/08/18 17:47 08/22/18 20:44 Senokot Tab* PO 2 tab BEDTIME PRN Administration CONSTIPATION Vital Signs: Vital Signs Temp Pulse Resp BP Pulse Ox 97.5 F 73 20 135/78 96 08/23/18 16:55 08/23/18 16:55 08/23/18 16:55 08/23/18 16:55 08/23/18 16:55 Lab Results: Laboratory Results - last 24 hr 08/23/18 08/23/18 05:12 05:12 WBC 8.1 RBC 4.68 Hgb 13.9 L Hct 42 MCV 90 MCH 30 MCHC 33 RDW 14 Plt Count 302 MPV 8.6 Neut % (Auto) 60.6 Lymph % (Auto) 26.4 [place] % (Auto) 7.9 Eos % (Auto) 4.2 Baso % (Auto) 0.9 Absolute Neuts (auto) 4.9 Absolute Lymphs (auto) 2.1 Absolute Monos (auto) 0.6 Absolute Eos (auto) 0.3 Absolute Basos (auto) 0.1 Absolute Nucleated RBC 0 Nucleated RBC % 0 Sodium 136 Potassium 4.6 Chloride 110 Carbon Dioxide 18 L Anion Gap 8 BUN 36 H Creatinine 1.44 H Est GFR ( Amer) 58.3 Est GFR (Non-Af Amer) 48.2 BUN/Creatinine Ratio 25.0 H Glucose 115 H Calcium 8.7 Total Bilirubin 0.30 AST 9 L ALT 4 L Alkaline Phosphatase 104 Total Protein 6.3 L Albumin 3.5 Globulin 2.8 Albumin/Globulin Ratio 1.3 Exam: HEENT: No upward gaze. Laceration over scalp on left healing LUNGS: Clear to auscultation bilaterally. HEART: regular rate and rhythm ABDOMEN: Soft, + bowel sounds, non-tender, non-distended EXTREMITIES: No edema. 2+ pedal pulses. NEUROLOGIC: Motor 5/5 bue/ble with normal sensation. decreased blinking and rigidity. Assessment/Plan: 1. 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 Sinemet 2 TID. 2. DM: Metformin. No fingersticks. Stable chronic renal insufficiency on metformin. 3. Hypertension: Cozaar/Lopressor 4. CAD: Lopressor/ASA 5. DVT Prophylaxis: Heparin 6. Advanced Directives: Full code. is surrogate decision maker 08/23/18 18:02
[2018-08-23] MEDS: Senna TAB PO PRN (20:53)
[2018-08-24 07:14] VITALS: BP 146/79
[2018-08-24] MEDS: Losartan TAB* 25 MG PO SCH (09:02)
[2018-08-24] MEDS: Carbidopa/Levodop 25/100 MG TAB(*) PO SCH (09:02)
[2018-08-24] MEDS: metFORMIN* 500 MG TAB PO SCH (09:02)
[2018-08-24] MEDS: Docusate CAP* 100 MG PO SCH (09:02)
[2018-08-24] MEDS: Metoprolol Tartrate TAB* 25 MG PO SCH (09:02)
[2018-08-24] MEDS: Aspirin EC TAB* 81 MG TAB.EC PO SCH (09:02)
[2018-08-24] MEDS: Heparin VIAL(*) 5000 UNITS/ML VIAL (FIVE THOUSAND) SUBCUT SCH (09:03)
[2018-08-24] MEDS: Polyethylene Glycol 3350* 17 GM PACKET PO SCH (12:37)
--- NOTE | 2018-08-25 00:20 | DS ---
CC: Dr. Mohinder Putnam * DISCHARGE SUMMARY: DATE OF ADMISSION: 08/08/18 DATE OF DISCHARGE: 08/24/18 DISCHARGE DIAGNOSES: 1. Progressive supranuclear palsy. 2. Diabetes mellitus. 3. Hypertension. 4. Coronary artery disease. 5. Hyperlipidemia. HISTORY OF PRESENT ILLNESS AND HOSPITAL COURSE: For a complete history of the events leading up to his rehab stay, please see the history and physical dictated by me on 08/08/18. While on the rehab unit, the patient remained stable from a medical point of view. He remained on Sinemet as well as his Glucophage. He had fingersticks once a day, which were okay and the fingersticks were eventually discontinued. He was maintained on heparin for DVT prophylaxis. The patient was seen by both Physical and Occupational Therapy and made good gains with both disciplines. With physical therapy, at the time of admission, the patient required contact guard to do a transfer. He was able to ambulate with contact guard. With occupational therapy, at the time of admission, the patient required supervision for upper body dressing, min assist for lower body dressing, contact guard for toileting, contact guard for toilet transfers. By the time of discharge, the patient required contact guard for transfers, contact guard for ambulation. He was supervision for bathing and tub transfers, supervision for toileting and toilet transfers. His situation did fluctuate somewhat. He could require almost no supervision to requiring min assist. It was recommended that the patient have 24- hour supervision when he returns home. His was brought in for a meeting prior to discharge and this was explained to he and his . The patient was discharged home on 08/24/18. DISCHARGE DIET: Consistent carbohydrate. DISCHARGE MEDICATIONS: 1. Aspirin 81 mg orally once a day. 2. Lipitor 20 mg daily. 3. Sinemet 25/100 two tablets 3 times a day. 4. Losartan 100 mg daily. 5. Metformin 1000 mg at 8:00 a.m. and 5:00 p.m. 6. Lopressor 25 mg orally twice daily. SERVICES AFTER DISCHARGE: Through the visiting nurse service, he will have home nursing, home physical therapy, home occupational therapy, and a home health aide. FOLLOWUP: Follow up with his primary care doctor, Dr. Mohinder Putnam, as well as Dr. Scot Castillo, his neurologist. TIME SPENT: Time for this discharge was approximately 50 minutes, greater than half of which was spent with the patient and his explaining post-rehab follow-up, services and supervision requirements. [id number]/[facility] #: [id number] MICHEL
== END 2018-08-24 14:00 | disposition home health service (06) | DRG 57 ==
LOC: PMRU 17:14
PROVIDERS: ADMIT Physical Medicine & Rehabilitation; ATTEND Physical Medicine & Rehabilitation
PROC: F07Z5ZZ Bed Mobility Treatment (ICD-10-PCS; principal; 2018-08-08)
PROC: F07Z9ZZ Gait Training/Functional Ambulation Treatment (ICD-10-PCS; 2018-08-08)
PROC: F07Z8ZZ Transfer Training Treatment (ICD-10-PCS; 2018-08-08)
PROC: F08Z0ZZ Bathing/Showering Techniques Treatment (ICD-10-PCS; 2018-08-08)
PROC: F08Z1ZZ Dressing Techniques Treatment (ICD-10-PCS; 2018-08-08)
PROC: F08Z3ZZ Feeding/Eating Treatment (ICD-10-PCS; 2018-08-08)
PROC: F06Z6ZZ Communicative/Cognitive Integration Skills Treatment (ICD-10-PCS; 2018-08-08)
DX: G23.1 Progressive supranuclear ophthalmoplegia [Steele-Richardson-Olszewski] (principal); E11.22 Type 2 diabetes mellitus with diabetic chronic kidney disease; I12.9 Hypertensive chronic kidney disease with stage 1 through stage 4 chronic kidney disease, or unspecified chronic kidney disease; N18.9 Chronic kidney disease, unspecified; I25.10 Atherosclerotic heart disease of native coronary artery without angina pectoris; E78.5 Hyperlipidemia, unspecified; S01.01XD Laceration without foreign body of scalp, subsequent encounter; W18.30XD Fall on same level, unspecified, subsequent encounter; Z79.84 Long term (current) use of oral hypoglycemic drugs; Z79.82 Long term (current) use of aspirin; Z79.899 Other long term (current) drug therapy; Z88.0 Allergy status to penicillin; Z91.81 History of falling
CPT/HCPCS: 36415; 80048; 80053; 85025; A9270-GY; J1644

== ENCOUNTER 2018-12-28 09:20 | Day surgery (SDC) | payer MEDICARE, BC ==
[~2018-12-28 09:20] MED LIST: Acetaminophen TAB* 325 MG PO PRN; Buffered Lidocaine 1% SYRIN* 1 ML/SYRINGE INTRADERM ONE
[2018-12-28] MEDS ORDERED: fentaNYL* 50 MCG/ML 2 ML VIAL (100 MCG VIAL) ONE (10:37)
[2018-12-28] MEDS ORDERED: Midazolam* 1 MG/ML 5 ML VIAL (5 MG) ONE (10:37)
[2018-12-28 12:23] VITALS: BP 127/75
--- NOTE | 2018-12-28 12:25 | OP ---
DATE OF OPERATION: 12/28/18 [facility] DATE OF : 47 SURGEON: Dr. Quirino White. PREPRINT ANALYST: None. ANESTHESIA: Topical with intravenous sedation. PRE-OP DIAGNOSIS: Cataract, right eye. POST-OP DIAGNOSIS: Cataract, right eye. OPERATIVE PROCEDURE: Phacoemulsification and cataract extraction with posterior chamber intraocular lens implant, right eye. COMPLICATIONS: None. BLOOD LOSS: None. DESCRIPTION OF PROCEDURE: The patient was brought to the operating room and received a small amount of intravenous sedation. A drop of Tetracaine was placed in his right eye. He was prepped and draped in the usual sterile fashion for ophthalmic surgery and attention was directed to the right eye where a speculum was placed. A paracentesis was created at the 11 o'clock position and 0.1 cc of 1 percent preservative-free Lidocaine was injected into the anterior chamber followed by DisCoVisc. The eye was digitally stabilized while a 2.75 mm keratome was used to create a triplanar clear corneal incision at the 9 o'clock position. A continuous curvilinear capsulorrhexis was created with a cystotome and Utrata forceps. BSS on a cannula was used to hydrodissect the lens from the capsule. Phacoemulsification was performed in a divide-and- conquer technique to create four fragments which were removed. Residual cortical material was removed with irrigation and aspiration. DisCoVisc was used to inflate the capsular bag and an [id number] 11.5 diopter lens was folded and inserted into the capsular bag. DisCoVisc was removed using irrigation and aspiration. BSS on a cannula was used to hydrate the corneal stroma and seal the wound. At the end of the case the pupil was round and the lens was centered. The eye was of normal pressure and the wound was water tight. The speculum was removed and topical Maxitrol ointment was placed on the surface of the eye. The eye was closed, patched and shielded and the patient was sent to the recovery room in stable condition with post operative instructions and follow-up appointment given. [id number]/[facility] #: [id number] MTDElder
[2018-12-28] MEDS ORDERED: Tropicamide 1% OPTH.SOL* BTL ONE (14:49)
[2018-12-28] MEDS ORDERED: Lidocaine 1% MPF ** 5 ML VIAL ONE (14:49)
[2018-12-28] MEDS ORDERED: Cyclopentolate 1% OPTH.SOL* 2 ML BTL ONE (14:49)
[2018-12-28] MEDS ORDERED: Ketorolac 0.5% OPHTH (NF) 0.5 % 5 ML BTL ONE (14:49)
[2018-12-28] MEDS ORDERED: Tetracaine 0.5% OPTH.SOL 4 ML* 1 DROP BTL ONE (14:49)
[2018-12-28] MEDS ORDERED: Neomycin/Polymy/Dex OPHTH.OIN* 3.5 GM ONE (14:49)
[2018-12-28] MEDS ORDERED: Phenylephrine OPHTH SOL 2.5%* 2 ML ONE (14:49)
== END 2018-12-28 12:05 | disposition home or self-care (01) ==
LOC: OREAST 09:20
PROVIDERS: ATTEND Ophthalmology
DX: H25.11 Age-related nuclear cataract, right eye (principal); H52.10 Myopia, unspecified eye; E11.9 Type 2 diabetes mellitus without complications
CPT/HCPCS: A9270-GY; J2250; J3010; V2632

== ENCOUNTER 2019-05-06 12:56 | Emergency (ER) | payer MEDICARE, BC ==
--- NOTE | 2019-05-06 13:00 | ED ---
Adult Trauma - HPI Summary HPI Summary: This pt is a 73 y/o male presenting to [facility] via EMS for a mechanical fall today. Per EMS, pt's reports pt has hx of "Parkinson like disease." EMS states pt was trying to get off his sweater and when he was pulling it out of his head pt fell forward and had a head strike. Denies LOC. Per family member, pt became disoriented immediately. Pt currently denies any pain. Denies head pain, neck pain, or hand pain. Chary nausea or vomiting. EMS reports pt is lethargic and is still disoriented, but has improved since onset. His medications include Metformin, Metoprolol, Losartan, low dose aspirin. No other anticoagulants, per EMS. Pt states his last tetanus shot was a while ago. Allergic to Penicillin. Pt reports occasional alcohol use, denies any today. Denies tobacco or drug use. Medications reviewed. Allergies noted. - History of Current Complaint Stated Complaint: FALL-HEAD INJURY PER EMS Hx Obtained From: Patient, Family/Tube Backer, EMS Mechanism of Injury: Fall Loss of Consciousness: no loss of consciousness Onset/Duration: Traumatic, Still Present Current Severity: None Pain Intensity: 0 Pain Scale Used: 0-10 Numeric Location: Head - struck head Aggravating Factor(s): Nothing Alleviating Factor(s): Nothing Associated Signs & Symptoms: Negative: Nausea/Vomiting, Loss of Consciousness - Additional Pertinent History Primary Care Physician: [id number] - Allergy/Home Medications Allergies/Adverse Reactions: Allergies Allergy/AdvReac Type Severity Reaction Status Date / Time Penicillins Allergy Unknown Verified 05/06/19 13:24 Reaction Details PMH/Surg Hx/FS Hx/Imm Hx Endocrine/Hematology History: Reports: Hx Diabetes - MEDICATION Denies: Hx Thyroid Disease Cardiovascular History: Reports: Hx Hypertension - MEDICATION, Other Cardiovascular Problems/Disorders - HIGH CHOLESTEROL Denies: Hx Pacemaker/ICD Respiratory History: Denies: Hx Asthma - child, Hx Chronic Obstructive Pulmonary Disease (COPD), Other Respiratory Problems/Disorders GI History: Denies: Hx Ulcer, Other GI Disorders History: Denies: Hx Dialysis, Hx Renal Disease, Other Problems/Disorders Musculoskeletal History: Reports: Hx Back Problems - s/p falls Denies: Other Musculoskeletal History Sensory History: Reports: Hx Cataracts - BILATERAL, Hx Contacts or Glasses Denies: Hx Hearing Aid Opthamlomology History: Reports: Hx Cataracts - BILATERAL, Hx Contacts or Glasses Neurological History: Reports: Hx Nerve Disease - PROGRESSIVE SUPRANUCLEAR PALSY , Other Neuro Impairments/Disorders - Mild Cognitive Impairment, Parkinson's Psychiatric History: Denies: Hx Panic Disorder - Surgical History Surgery Procedure, Year, and Place: 2000 [facility]ED [facility], [facility] Hx Anesthesia Reactions: No - Immunization History Date of Tetanus Vaccine: w/in last 5 yrs per pt Infectious Disease History: Denies: Hx Clostridium Difficile, Hx Hepatitis, Hx Human Immunodeficiency Virus (HIV), Hx of Known/Suspected MRSA, Hx Shingles, Hx Tuberculosis, Hx Known/ Suspected VRE, Hx Known/Suspected VRSA, History Other Infectious Disease - Family History Known Family History: Positive: Diabetes - Social History Alcohol Use: Occasionally Alcohol Amount: 1 or 2 drinks a week Hx Substance Use: No Substance Use Type: Reports: None Substance Use Comment - Amount & Last Used: 3 to 4 cups a week Hx Tobacco Use: No Smoking Status (MU): Never Smoked Tobacco Have You Smoked in the Last Year: No Review of Systems Negative: Fever, Chills Negative: Other - NEGATIVE: neck pain, hand pain Neurological: Other - NEGATIVE: LOC. POSITIVE: disorientation Negative: Headache All Other Systems Reviewed And Are Negative: Yes Physical Exam - Summary Physical Exam Summary: Constitutional: Well-developed, Well-nourished, Alert, Cooperative Skin: Warm, Dry. Abrasion to the left forehead and right dorsal hand. HENT: Normocephalic; Abrasion to the left forehead. Eyes: EOM normal, pupils are 4 mm and sluggish. Neck: Trachea is midline. No stridor; No JVD; No step off; No posterior cervical spine tenderness Cardio: Rhythm regular, rate normal Heart sounds normal; Intact distal pulses. Radial pulses are 2+ and symmetric. Pulmonary/Chest wall: Effort normal; Breath sounds normal; Equal chest rise; No flail segment; No rib tenderness; No sternal tenderness Abd: Soft, Appearance normal. No distension; No tenderness; No palpable pulsatile mass; No Cullens sign; No Mahan-Turners sign Musculoskeletal: Full ROM and no tenderness at hips, ankles, shoulders, elbows and knees; No joint swelling; No vertebral body tenderness; No paraspinal tenderness; No step off or deformity of the spine; Pelvis is stable to lateral compression and rock Neuro: Alert and oriented to person and place, not to time. : No blood at urethral meatus Psych: Mood and affect Normal Triage Information Reviewed: Yes Vital Signs On Initial Exam: Initial Vitals Pulse Resp Pulse Ox 62 12 97 05/06/19 13:02 05/06/19 13:02 05/06/19 13:02 Temperature: 98.0 F temporal Blood Pressure: 169/83 Vital Signs Reviewed: Yes Procedures - Sedation Patient Received Moderate/Deep Sedation with Procedure: No Diagnostics - Laboratory Result Diagrams: 05/06/19 13:30 05/06/19 13:30 Lab Statement: Any lab studies that have been ordered have been reviewed, and results considered in the medical decision making process. - CT Brain CT CT Interpretation Completed By: Radiologist Summary of CT Findings: IMPRESSION: 1. No acute intracranial abnormality. 2. Mild chronic small vessel slightly disease is likely. 3. Moderate cerebral volumes loss. 4. Status post right scleral banding. Dr. Alcantara has reviewed this report. Cervical spine CT CT Interpretation Completed By: Radiologist Summary of CT Findings: IMPRESSION: 1. No evidence for acute fracture. There are mild chronic compression fractures of the T1 and T3 vertebral bodies, unchanged from the prior MRI study. 2. Mild to moderate cervical spondylosis as described. Dr. Alcantara has reviewed this report. Adult Trauma Course/Dx - Course Course Of Treatment: Patient is here after a mechanical fall. Patient is not on blood thinners. Patient did have 2 small abrasions on his head and hand. Patient of bony tenderness on his hand. Patient had negative CT brain and cervical spine. Patient and family are comfortable going home. - Diagnoses Provider Diagnoses: Closed head injury, Fall, Multiple abrasions Discharge ED - Sign-Out/Discharge Documenting (check all that apply): Patient Departure - Discharge home - Discharge Plan Condition: Stable Disposition: HOME Patient Education Materials: Head Injury (ED), Abrasion (ED) Referrals: Mohinder Putnam MD [Primary Care Provider] - Additional Instructions: Monitor patient for the next 24 hours for signs of delayed bleeding, such as vomiting repeatedly, not acting normal, weakness on one side of the body. CALL 911 IF PATIENT HAS ANY OF THESE SYMPTOMS. Please follow up with your primary care physician. Please make all follow-ups in 1-3 days unless I advise you otherwise. PLEASE RETURN TO EMERGENCY DEPARTMENT FOR ANY NEW OR WORSENING SYMPTOMS. - Billing Disposition and Condition Condition: STABLE Disposition: Home - Attestation Statements Document Initiated by Alinibzakia: Yes Documenting Scribe: Veronika Desir Provider For Whom Corwin is Documenting (Include Credential): Bubba Alcantara MD Scribe Attestation: Veronika Marley, scribed for Bubba Alcantara MD on 05/06/19 at 1625. Scribe Documentation Reviewed: Yes Provider Attestation: The documentation as recorded by the Veronika bright accurately reflects the service I personally performed and the decisions made by me, Bubba Alcantara MD Status of Scribe Document: Viewed
--- OUTSIDE RECORDS SUMMARY | 2019-05-06 13:13 | XMS REPORT | Continuity of Care Document ---
:1945 External Reference #:[id number] Author Name Price Arredondo N.P. 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 Onset: 01/25/2015 Mild cognitive disorder Yvrose Salazar M.D. Onset: 01/25/2015 Progressive supranuclear ophthalmoplegia Yvrose Salazar M.D. Onset: 2014 Disorder of shoulder Ryland Burks M.D. Onset: 10/18/2015 Glenoid labrum tear Ryland Burks M.D. Onset: 10/18/2015 Parkinson's disease Scot Castillo M.D. Onset: 10/30/2017 Amnesia Scot Castillo M.D. Onset: 10/30/2017 Acquired torsion dystonia Scot Castillo M.D. Onset: 11/23/2017 Fall Lisa Bui NP Onset: 08/04/2018 Nervous system symptoms Price Arredondo N.P. Onset: 08/26/2018 Lumbar radiculopathy Price Arredondo N.P. Onset: 08/26/2018 Social History Type Date Description Comments Sex Unknown ETOH Use Drinks Alcoholic Glass of wine Beverages Rarely weekly Tobacco Use Start: Unknown Patient has never smoked Recreational Drug Use Denies Drug Use Smoking Status Reviewed: 05/02/19 Patient has never smoked Exercise Type/Frequency Exercises regularly Allergies, Adverse Reactions, Alerts Active Allergies Reaction Severity Comments Date Penicillin 05/31/2013 Medications Active Medications SIG Qnty Indications Ordering Date Provider Vitamin B-12 1 po qd Unknown 500mcg Tablets Atorvastatin Calcium 1/2 tab po qd 90tabs Unknown 40mg Tablets Metoprolol Tartrate 1 tab po bid 100tabs Unknown 25mg Tablets Losartan Potassium take 1 tablet by Unknown mouth once daily 100mg Tablets Metformin HCL 1 by mouth twice a Unknown 1000mg day Tablets Carbidopa-Levodopa 2 by mouth three 180tabs Davey SSharda times a day Yolande Argueta 25-100mg Tablets Viagra 1 by mouth as Unknown 50mg Tablets needed Aspir-81 1 by mouth every Unknown 81mg Tablets day DR Chlorthalidone 1 by mouth every Unknown 25mg day Tablets Colace 1 tab every 12 Unknown 100mg Capsules hours as needed for constipation Medications Administered in Office Medication SIG Qnty Indications Ordering Provider Date Depomedrol 40MG Ryland Burks M.D. 10/18/2015 Injection Immunizations Description No Information Available Vital Signs Date Vital Result Comment 05/02/2019 9:29am Weight 195.12 lb Heart Rate 70 /min BP Systolic Sitting 130 mmHg BP Diastolic Sitting 78 mmHg Respiratory Rate 16 /min 03/04/2019 2:45pm Height 73 inches 6'1" Weight 191.00 lb Heart Rate 98 /min BP Systolic 126 mmHg BP Diastolic 78 mmHg BMI (Body Mass Index) 25.2 kg/m2 Results Description No Information Available Procedures Description No Information Available Medical Devices Description No Information Available Encounters Type Date Location Provider Dx Diagnosis Office Visit 03/04/2019 [facility] Scot Castillo, G20 Parkinson' s disease 2:45p [facility] Office Visit 12/02/2018 [facility] Price Arredondo, G23.1 Progressive 10:00a [facility] supranuclear ophthalmoplegia R41.3 Other amnesia Assessments Date Code Description Provider 05/02/2019 G20 Parkinson's disease Price Arredondo N.PSharda 05/02/2019 R41.3 Other amnesia Price Arredondo N.PSharda 05/02/2019 R29.6 Repeated falls Price Arredondo N.PSharda 03/04/2019 G20 Parkinson's disease Scot Castillo M.D. 12/02/2018 G23.1 Progressive supranuclear ophthalmoplegia Price Arredondo N.P. [Aries- 12/02/2018 R41.3 Other amnesia Price Arredondo N.P. Plan of Treatment Future Appointment(s):06/23/2019 2:15 pm - Scot Castillo M.D. at [facility]05/02/2019 - Price Arredondo N.P.G20 Parkinson's diseaseNew Orders:Swallowing Function studyw/speech+Fluoro, Ordered: New Therapy:Speech TherapyReferral:No Doctor [facility] Clinic/CenterFollow up:Keep follow up with DR You41.3 Other hlemaxvO42.6 Repeated falls Functional Status Description No Information Available Mental Status Description No Information Available Referrals Refer to Dr Reason for Referral Status Appt Date Created [facility] Movement [facility] PD, ? PSP Created [address] [place] [address] [phone] [facility] [address] [place] [address] [phone]
[2019-05-06 13:40] LABS: ABS Eosinophils 0.1 10^3/ul (0-0.6); ABS Lymphocytes 1.5 10^3/ul (1.0-4.8); ABS Monocytes 0.5 10^3/ul (0-0.8); ABS Neutrophils 6.2 10^3/ul (1.5-7.7); Eosinophil % 1.8 %; Hematocrit 39 % (42-52); Hemoglobin 13.3 g/dL (14.0-18.0); Lymphocyte % 17.9 %; Mean Corpuscular HGB Conc 34 g/dL (31-36); Mean Corpuscular Hemoglobin 31 pg (27-31); Mean Corpuscular Volume 90 fL (80-94); Mean Platelet Volume 9.6 fL (7.4-10.4); Platelet Count 273 10^3/uL (150-450); Red Blood Count 4.34 10^6 /uL (4.18-5.48); Red Cell Distribution Width 13 % (10-15); White Blood Count 8.4 10^3/uL (3.5-10.8)
[2019-05-06 13:53] LABS: INR 1.03 (0.82-1.09)
[2019-05-06 14:01] LABS: Albumin 4.1 g/dL (3.2-5.2); Albumin/Globulin Ratio 1.5 (1-3); BUN/Creatinine Ratio 19.9 (8-20); Calcium 9.2 mg/dL (8.6-10.3); EGFR African American 49.5 (>60); EGFR Non-African American 40.9 (>60); Globulin 2.8 g/dL (2-4); Potassium 3.7 mmol/L (3.5-5.0); Total Bilirubin 0.5 mg/dL (0.2-1.0); Total Protein 6.9 g/dL (6.4-8.9)
[2019-05-06 15:00] VITALS: BP 116/72
== END 2019-05-06 14:59 | disposition home or self-care (01) ==
LOC: ED 12:56
DX: S09.90XA Unspecified injury of head, initial encounter (principal); S00.81XA Abrasion of other part of head, initial encounter; S60.511A Abrasion of right hand, initial encounter; W19.XXXA Unspecified fall, initial encounter; Y93.89 Activity, other specified; Y92.9 Unspecified place or not applicable; M47.812 Spondylosis without myelopathy or radiculopathy, cervical region; E11.9 Type 2 diabetes mellitus without complications; Z79.84 Long term (current) use of oral hypoglycemic drugs; I10 Essential (primary) hypertension; G20 Parkinson's disease; Z79.82 Long term (current) use of aspirin; Z88.0 Allergy status to penicillin
CPT/HCPCS: 36415; 70450; 72125; 80053; 85025; 85610; 99283

== ENCOUNTER 2019-08-14 12:44 | Observation (INO) | payer MEDICARE, BC ==
[2019-08-14] MEDS ORDERED: NS 0.9% 1000 ML** 1,000 ML IV ONE (12:53)
--- NOTE | 2019-08-14 12:54 | ED ---
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 Patient became unresponsive with no shaking when sitting in a chair and per EMS had an undetectable radial pulse. At the scene, he was alert but had slurred speech. Last known well at 1201. He was hypotensive and bradycardic, but later heart rate went up to around 60. Patient complains of pain in back and denies shortness of breath or chest pain. His family wants intubation if necessary, but no resuscitation. The family does not want long- term intubation. Patient has history of diabetes, dementia, hypertension, and hyperlipidemia. He has sustained some falls recently, per EMS. - History of Current Complaint Stated Complaint: AMS PER EMS Hx Obtained From: Patient Onset/Duration: Sudden Onset, Started minutes ago, Still Present Timing: Constant Neurological Deficit Location: Generalized Pain Intensity: 0 Pain Scale Used: 0-10 Numeric Character: Confusion, Responsiveness - unrespnosive, Other: - back pain, bradycardic, hypotensive Aggravating: Nothing Alleviating: Other - atropine from EMS Associated Signs and Symptoms: Positive: Confusion. Negative: Chest Pain - Additional Pertinent History Primary Care Physician: [id number] - Allergy/Home Medications Allergies/Adverse Reactions: Allergies Allergy/AdvReac Type Severity Reaction Status Date / Time Penicillins Allergy Unknown Verified 08/14/19 13:40 Reaction Details Home Medications: Home Medications Cyanocobalamin (Vitamin B-12) [Vitamin B-12] 500 mcg PO QAM 12/06/13 [History Confirmed 08/14/19] metFORMIN* [Glucophage 1000 MG TAB *] 1,000 mg PO BID 05/20/18 [History Confirmed 08/14/19] Carbidopa/Levodop 25/100 MG(*) [Sinemet 25/100 TAB(*)] 2 tab PO TID tab [Rx Confirmed 08/14/19] Docusate CAP* [Colace Cap*] 100 mg PO BID cap 08/24/18 [Rx Confirmed 08/14/19] Metoprolol Tartrate TAB* [Lopressor TAB*] 25 mg PO BID tab 08/24/18 [Rx Confirmed 08/14/19] Atorvastatin* [Lipitor 20 MG*] 20 mg PO QPM 12/22/18 [History Confirmed 08/14/19 ] Chlorthalidone TAB* [Hygroton TAB*] 25 mg PO QAM 12/22/18 [History Confirmed ] Losartan TAB* [Cozaar TAB*] 100 mg PO QAM 12/22/18 [History Confirmed 08/14/19] Aspirin [Browndell Aspirin] 81 mg PO DAILY 08/14/19 [History Confirmed 08/14/19 ] Polyethylene Glycol 3350 [Miralax] 17 gm PO DAILY PRN 08/14/19 [History Confirmed 08/14/19] Sildenafil Citrate [Viagra] 100 mg PO MONTHLY PRN 08/14/19 [History Confirmed ] Tamsulosin CAP* [Flomax CAP*] 0.4 mg PO DAILY 08/14/19 [History Confirmed ] PMH/Surg Hx/FS Hx/Imm Hx Endocrine/Hematology History: Reports: Hx Diabetes - MEDICATION Denies: Hx Thyroid Disease Cardiovascular History: Reports: Hx Hypertension - MEDICATION, Other Cardiovascular Problems/Disorders - HIGH CHOLESTEROL Denies: Hx Pacemaker/ICD Respiratory History: Denies: Hx Asthma - child, Hx Chronic Obstructive Pulmonary Disease (COPD), Other Respiratory Problems/Disorders GI History: Denies: Hx Ulcer, Other GI Disorders History: Denies: Hx Dialysis, Hx Renal Disease, Other Problems/Disorders Musculoskeletal History: Reports: Hx Back Problems - s/p falls Denies: Other Musculoskeletal History Sensory History: Reports: Hx Cataracts - BILATERAL, Hx Contacts or Glasses Denies: Hx Hearing Aid Opthamlomology History: Reports: Hx Cataracts - BILATERAL, Hx Contacts or Glasses Neurological History: Reports: Hx Nerve Disease - PROGRESSIVE SUPRANUCLEAR PALSY , Other Neuro Impairments/Disorders - Mild Cognitive Impairment, Parkinson's Psychiatric History: Denies: Hx Panic Disorder - Surgical History Surgery Procedure, Year, and Place: 2000 DETACHED RETINA AT [facility] Hx Anesthesia Reactions: No - Immunization History Date of Tetanus Vaccine: w/in last 5 yrs per pt Infectious Disease History: Denies: Hx Clostridium Difficile, Hx Hepatitis, Hx Human Immunodeficiency Virus (HIV), Hx of Known/Suspected MRSA, Hx Shingles, Hx Tuberculosis, Hx Known/ Suspected VRE, Hx Known/Suspected VRSA, History Other Infectious Disease - Family History Known Family History: Positive: Diabetes - Social History Alcohol Use: Occasionally Alcohol Amount: 1 or 2 drinks a week Hx Substance Use: No Substance Use Type: Reports: None Substance Use Comment - Amount & Last Used: 3 to 4 cups a week Hx Tobacco Use: No Smoking Status (MU): Never Smoked Tobacco Have You Smoked in the Last Year: No Review of Systems Positive: Other - bradycardic, hypotensive. Negative: Chest Pain Negative: Shortness Of Breath Positive: Other - back pain Neurological/Mental Status: Other - confusion, unresponsive All Other Systems Reviewed And Are Negative: Yes Physical Exam - Summary Physical Exam Summary: VITAL SIGNS: Reviewed. GENERAL: Patient is a well-developed and nourished male who is lying comfortable in the stretcher.Patient is not in any acute respiratory distress. HEAD AND FACE: No signs of trauma. No ecchymosis, hematomas or skull depressions. No sinus tenderness. EYES: PERRLA, EOMI x 2, No injected conjunctiva, no nystagmus. No photophobia. EARS: Hearing grossly intact. Ear canals and tympanic membranes are within normal limits. MOUTH: Oropharynx within normal limits. NECK: Supple, trachea is midline, no adenopathy, no JVD, no carotid bruit, no c- spine tenderness, neck with full ROM. No meningeal signs, no Kernig's or brudzinskis signs. CHEST: Symmetric, no tenderness at palpation. LUNGS: Clear to auscultation bilaterally. No wheezing or crackles. CVS: Regular rate and rhythm, S1 and S2 present, no murmurs or gallops appreciated. ABDOMEN: Soft, non-tender. No signs of distention. No rebound, no guarding, and no masses palpated. Bowel sounds are normal. EXTREMITIES: FROM in all major joints, no edema, no cyanosis or clubbing. NEURO: Alert and oriented x 3. Slightly confused. Slurred speech SKIN: Dry and warm. GCS: 15 NIH: 1, mild aphasia : Urinary incontinence Triage Information Reviewed: Yes Vital Signs Reviewed: Yes Procedures - Sedation Patient Received Moderate/Deep Sedation with Procedure: No Diagnostics - Laboratory Result Diagrams: 08/14/19 14:43 08/14/19 14:43 Lab Statement: Any lab studies that have been ordered have been reviewed, and results considered in the medical decision making process. - Radiology chest xray Radiology Interpretation Completed By: Radiologist Summary of Radiographic Findings: IMPRESSION: NO ACTIVE CARDIOPULMONARY DISEASE IS NOTED. This report was reviewed by the ED physician. - CT head CT Interpretation Completed By: Radiologist Summary of CT Findings: IMPRESSION: No definite intracranial mass or hemorrhage is noted. Findings discussed with Dr. Post at 1315 hours. This report was reviewed by the ED physician. - EKG 1328 Cardiac Rate: Bradycardia EKG Rhythm: Sinus Bradycardia Summary of EKG Findings: EKG at 1328 shows sinus bradycardia at 56bpm. No ST elevations. No STEMI. This EKG was reviewed and interpreted by the ED physician. NIH Scale - NIH Scale Level of Consciousness: Alert/Keenly Responsive Ask Patient the Month and His/Her Age: Both Correct Ask Pt to Open/Close Eyes and Ticket Sorter/Release Non-Paretic Hand: Both Correctly Best Gaze (Only Horizontal Eye Movement): Normal Visual Field Testing: No Visual Loss Facial Paresis-Pt to Smile & Close Eyes or Grimace Symmetry: Normal/Symmetrical Motor Function - Right Arm: No Drift-Holds 10 Seconds Motor Function - Left Arm: No Drift-Holds 10 Seconds Motor Function - Right Leg: No Drift-Holds 10 Seconds Motor Function - Left Leg: No Drift-Holds 10 Seconds Limb Ataxia-Must be out of Proportion to Weakness Present: Absent Sensory (Use Pinprick to Test Arms/Legs/Trunk/Face): Normal Best Language (Describe Picture, Name Items): Some Loss Dysarthria (Read Several Words): Normal Extinction and Inattention: No Abnormality Total Score: 1 Re-Evaluation - Re-Evaluation First Eval Re-Evaluation Time: 13:30 Comment: Informed by that patient has slurred speech at baseline. 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 Patient became unresponsive with no shaking when sitting in a chair and per EMS had an undetectable radial pulse. At the scene, he was alert but had slurred speech. Last known well at 1201. He was hypotensive and bradycardic, but later heart rate went up to around 60. Patient complains of pain in back and denies shortness of breath or chest pain. His family wants intubation if necessary, but no resuscitation. The family does not want long-term intubation. Patient has history of diabetes, dementia, hypertension, and hyperlipidemia. He has sustained some falls recently, per EMS. Past medical history significant for renal insufficiency, hypertension, dyslipidemia, Parkinsons disease and diabetes. Óscar morrison was called in the ED since the patient had slurred speech. NIH score is equal to 1. GCS is 15. I discussed the case with Dr. Hopper [place] [facility]. He recommends no tpa since NIH is only one and patient was unresponsive due to bradycardia. 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 Past medical records reviewed. Blood test w/o a significant abnormality except for slight anemia with a hemoglobin 9.6, hematocrit 28, potassium is 2.9, carbon dioxide 21, BUN is 29, creatinine 1.33, glucose 176, glucose 195, lactic acid is 2.8, calcium 6.4, and total protein is 4.7. Corrected calcium is 7.4. Head CT shows atrophy and no acute hemorrhage. Patient is lethargic but answers appropriately to all questions. I discussed my physical exam and test results with Dr. Sanderson from the hospitalist services and he agrees to admit the patient to his services. - Diagnoses Provider Diagnoses: Symptomatic bradycardia, Unresponsive, Hypokalemia - Physician Notifications Discussed Care Of Patient With: Alvaro Hopper Time Discussed With Above Provider: 13:05 Instructed by Provider To: Other - Patient's case was discussed with Dr. Hopper, who does not recommend TPA due to low NIH score presentation. At 1411 patient's case was discussed with Dr. Sanderson, who accepts the patient for admission. Discharge ED - Sign-Out/Discharge Documenting (check all that apply): Patient Departure - admit - Discharge Plan Condition: Stable Disposition: ADMITTED TO [facility] - Billing Disposition and Condition Condition: STABLE Disposition: Admitted to [facility] - Attestation Statements Document Initiated by Scribe: Yes Documenting Scribe: Prabhakar Lee Provider For Whom Alinibe is Documenting (Include Credential): Prateek Post MD Scribe Attestation: Prabhakar Marley, scribed for Prateek Post MD on 08/14/19 at 1841. Scribe Documentation Reviewed: Yes Provider Attestation: The documentation as recorded by the scribePrabhakar accurately reflects the service I personally performed and the decisions made by , Prateek Post MD Status of Scribe Document: Viewed
--- OUTSIDE RECORDS SUMMARY | 2019-08-14 12:59 | XMS REPORT | Summary of Care ---
:1945 Author Organization [facility] Address [address] [facility] [place] [address] Care Team Providers Name Role Phone Mohinder Putnam Primary Care Provider Scot Castillo MD Unavailable Quirino White MD Primary Commanding Officer Motorized Squad/Manager Of Tires Sales Catherine Hay RN [facility] Drawing Tender Unavailable Reason for Visit Reason Comments Labs Only f/u last done on 05/06/19 Hypertension f/u Diabetes f/u Urinary Retention periodically seems to have issue with urination; question r/ t prostate Medication Refill f/u need refill on albuterol as concerned with Sargent virus. Encounter Details Date Type Department Care Team Description 07/27/2019 Office Visit [facility] Mohinder Putnam MD Type 2 diabetes mellitus without complication, without long-term current use of insulin (HCC) (Primary Dx); Medicine [address] [facility] (progressive supranuclear palsy) (HCC); [address] [place] [address] Closed fracture of sacrum with routine healing, unspecified portion of sacrum , subsequent encounter; [place] [address] Essential hypertension; [phone] Renal insufficiency (Fax) Allergies Active Allergy Reactions Severity Noted Date Comments Penicillins Unknown Reaction 08/10/2007 documented as of this encounter (statuses as of 08/07/2019) Medications Medication Sig Dispensed Refills Start End Date Status Date Aspirin 81 MG Oral Take by mouth. 0 Active Tab EC cyanocobalamin Take 500 mcg by 0 Active (B-12) 500 MCG Oral mouth DAILY. Tab polyethylene glycol Take 17 g by 0 Active (MIRALAX) Oral mouth DAILY 9 Powder NEEDED. Docusate Sodium Take 1 Cap by 0 Active (DSS) 100 MG Oral mouth TWICE Cap DAILY. Losartan Potassium TAKE 1 TABLET 90 Tab 5 Active 100 MG Oral Tab BY MOUTH EVERY 9 DAY Sildenafil Citrate Take 1 Tab by 18 Tab 3 Active (VIAGRA) 100 MG mouth DAILY 9 Oral NEEDED (for TabIndications: ED). Failure of erection carbidopa-levodopa Take 2 Tabs by 540 Tab 3 Active (SINEMET) 25-100 MG mouth THREE 9 Oral Tab TIMES DAILY. chlorthalidone Take 1 Tab by 30 Tab 11 Active (HYGROTON) 25 MG mouth DAILY. 9 Oral Tab Glucose Blood In 1 Strip by In 100 Strip 11 Active Vitro Strip Vitro route 0 DAILY. Brand: One Touch, Dx: E11.9 Lancets Does not by Does not 100 Each 11 Active apply Misc apply route 0 DAILY. Brand: One Touch, Dx: E11.9 metoprolol TAKE 1 TABLET 180 Tab 3 Active (LOPRESSOR) 25 MG BY MOUTH TWO 0 Oral Tab TIMES DAILY metFORMIN HCL 1000 TAKE 1 TABLET 180 Tab 3 Active MG Oral Tab BY MOUTH TWO 0 TIMES DAILY atorvastatin Take 1 Tab by 90 Tab 3 Active (LIPITOR) 20 MG mouth DAILY. 0 Oral TabIndications: Diabetes mellitus without complication (HCC) albuterol HFA Take 2 Puffs by 2 Inhaler 5 Active (VENTOLIN) 108 (90 inhalation 0 Base) MCG/ACT EVERY FOUR Inhalation Aero HOURS NEEDED Soln (wheezing). Tamsulosin HCl Take 1 Cap by 90 Cap 3 Active (FLOMAX) 0.4 MG mouth DAILY. 0 Oral Cap albuterol HFA Take 2 Puffs by 1 Inhaler 5 07/27/19 Discontinued (VENTOLIN) 108 (90 inhalation 5 20 (Reorder) BASE) MCG/ACT EVERY FOUR Inhalation Aero HOURS NEEDED Soln (wheezing). documented as of this encounter (statuses as of 08/07/2019) Active Problems Problem Noted Date Pain in joint involving left pelvic region and thigh 08/27/2017 Abnormal stress echo 06/28/2014 Memory loss 05/30/2014 BPH (benign prostatic hyperplasia) 12/10/2011 BMI 28.0-28.9,adult 12/10/2011 Overview: This patient's BMI has been calculated and is above average, and BMI management plan is completed. 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 Hypercholesteremia 08/11/2007 Diverticulosis 08/11/2007 Detached retina 08/11/2007 Type 2 diabetes mellitus without complication, without long-term current 08/09 use of insulin Other vitreous opacities 08/10/2007 HTN (Hypertension), CARE PLAN INITIATED Parkinson disease documented as of this encounter (statuses as of 08/07/2019) Resolved Problems Problem Noted Date Resolved Date BMI 28.0-28.9,adult 12/09/2010 07/21/2011 Shingles 11/16/2007 07/21/2011 BCC (BASAL CELL CARCINOMA OF SKIN) 08/11/2007 07/21/2011 Overview: Left shoulder Sinusitis (Chronic) 08/10/2007 07/21/2011 Parkinson disease 05/15/2016 documented as of this encounter (statuses as of 08/07/2019) Immunizations Name Administration Dates Next Due Influenza Vaccine High Dose 05/22/2018 PNEUMOCOCCAL POLYSACCHARIDE VACCINE 05/23/2018 Rabies Vaccine, For Intramuscular 02/07/2015, 01/31/2015, 01/27/2015, Injection Retired Code 01/24/2015 TDAP Vaccine 07/30/2018 documented as of this encounter Social History Tobacco Use Types Packs/Day Years Used Date Never Smoker Smokeless Tobacco: Never Used Alcohol Use Drinks/Week oz/Week Comments Yes 1 Glasses of wine 2.0 glass wine/beer twice a week 1 Cans of beer Sex Assigned at Date Recorded Not on file documented as of this encounter Last Filed Vital Signs Vital Sign Reading Time Taken Comments Blood Pressure 118/58 07/27/2019 3:46 PM EDT Pulse 59 07/27/2019 3:46 PM EDT Temperature - - Respiratory Rate - - Oxygen Saturation 97% 07/27/2019 3:46 PM EDT Inhaled Oxygen Concentration - - Weight 87.5 kg (193 lb) 07/27/2019 3:46 PM EDT Height 182.9 cm (6') 07/27/2019 3:46 PM EDT Body Mass Index 26.18 07/27/2019 3:46 PM EDT documented in this encounter Patient Instructions Patient InstructionsMohinder Putnam MD - 07/27/2019 3:30 PM EDTContinue same medicines Lab today, as listed. I'll notify you of the results with a letter. follow up in 3 months 4 :24 PM EDT documented in this encounter Progress Notes Mohinder Putnma MD - 07/27/2019 3:30 PM EDT PATIENT: Shane Anderson : 1945 DATE OF SERVICE: 07/27/2019 CHIEF COMPLAINT: Chief Complaint Patient presents with ? Labs Only f/u last done on 05/06/19 ? Hypertension f/u ? Diabetes f/u ? Urinary Retention periodically seems to have issue with urination; question r/t prostate ? Medication Refill f/u need refill on albuterol as concerned with Sargent virus. Subjective HISTORY OF PRESENT ILLNESS: Shane Anderson is a 74-y.o. male. HPI Returns in follow-up of diabetes, progressive supranuclear palsy. Having to walk with walker, with holding gait belt. Sometimes has trouble with emptying bladder. 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 Had labs done recently as listed below, and results reviewed with patient. The results are satisfactory. Any abnormalities indicated are insignificant and/or stable. Glycemic control is excellent. Lipid control is excellent. Renal function still mildly impaired but stable. Lab on 05/06/2019 Component Date Value Ref Range Status ? Glycohemoglobin A1C 05/06/2019 6.4* <=5.6 % Final Normal*: <=5.6% Pre Diabetes* Risk: 5.7-6.4% Diabetes* Risk: >=6.5% Glycemic Goals for Adult Diabetes*: <7.0% *(Adult Ranges)[place] Diabetes Association, Standards of Medical Care in Diabetes, 2018 ? Cholesterol 05/06/2019 107 <200 mg/dl Final ? HDL Cholesterol 05/06/2019 30* >40 mg/dl Final ? Triglycerides 05/06/2019 139 <150 mg/dl Final ? LDL Cholesterol 05/06/2019 49 <100 MG/DL Final ? Cholesterol / HDL Ratio 05/06/2019 3.6 RATIO Final ? LDL / HDL Ratio 05/06/2019 1.6 Final ? Non-HDL Cholesterol 05/06/2019 77 0 - 130 MG/DL Final ? Patient Fastin05/06/2019 Yes Final ? Sodium 05/06/2019 137 134 - 145 mmol/L Final ? Potassium 05/06/2019 4.2 3.5 - 5.1 mmol/L Final ? Chloride 05/06/2019 100 98 - 107 mmol/L Final ? CO2 05/06/2019 26 22 - 30 mmol/L Final ? Calcium 05/06/2019 9.0 8.3 - 10.1 mg/dl Final ? Albumin 05/06/2019 4.1 3.5 - 5.0 g/dl Final ? BUN 05/06/2019 33* 9 - 20 mg/dl Final ? Creatinine 05/06/2019 1.7* 0.8 - 1.5 mg/dl Final ? Glucose 05/06/2019 114* 70 - 99 mg/dl Final ? Total Protein 05/06/2019 7.5 6.3 - 8.2 g/dl Final ? Total Bilirubin 05/06/2019 0.4 0.0 - 1.1 MG/DL Final ? AST 05/06/2019 24 17 - 59 U/L Final ? ALT 05/06/2019 14* 21 - 72 U/L Final ? Alkaline Phosphatase 05/06/2019 67 40 - 150 U/L Final ? eGFR 05/06/2019 40 See Interpretation Below ml/min/1.73ml Sq Final Estimated GFR Interpretation: Above 60ml/min/1.73m2 = Normal Renal Function 30-59 ml/min/1.73m2 = Stage 3 Chronic Kidney Disease 15-29 ml/min/1.73m2 = Stage 4 Chronic Kidney Disease Less than 15 ml/min/1.73m2 = Stage 5 Chronic Kidney Disease The GFR value is calculated using the Modification of Diet in Renal Disease ( MDRD) Study Equation which can be found at: https://www.kidney.org/content/cyue-ygkkh-zbxeldpk ? BUN/Creatinine Ratio 05/06/2019 19 6 - 22 RATIO Final ? Anion Gap 05/06/2019 11 3 - 11 mmol/L Final ? A/G Ratio 05/06/2019 1.2 0.8 - 2.0 ratio Final Past Medical History: Diagnosis Date ? Asthma ? BCC (BASAL CELL CARCINOMA OF SKIN) 2001 left shoulder ? Detached retina ? Diverticulosis ? HTN (hypertension) ? Hypercholesteremia ? Other vitreous opacities 08/10/2007 ? Parkinson disease (HCC) ? Seasonal allergies ? Shingles 11/2007 ? Sinusitis (Chronic) 08/10/2007 ? Type II or unspecified type diabetes mellitus without mention of complication, not stated asuncontrolled 08/10/2007 last eye exam 03/16/13 Family History Problem Relation Age of Onset ? Diabetes Mother ? Alzheimer's Disease Mother ? Breast Cancer Mother ? Cancer Father Prostate Cancer ? GI Father cirrhosis of liver Current Outpatient Medications Medication Sig ? albuterol HFA (VENTOLIN) 108 (90 Base) MCG/ACT Inhalation Aero Soln Take 2 Puffs by inhalation EVERY FOUR HOURS NEEDED (wheezing). ? Aspirin 81 MG Oral Tab EC Take by mouth. ? atorvastatin (LIPITOR) 20 MG Oral Tab Take 1 Tab by mouth DAILY. ? carbidopa-levodopa (SINEMET) 25-100 MG Oral Tab Take 2 Tabs by mouth THREE TIMES DAILY. ? chlorthalidone (HYGROTON) 25 MG Oral Tab Take 1 Tab by mouth DAILY. ? cyanocobalamin (B-12) 500 MCG Oral Tab Take 500 mcg by mouth DAILY. ? Docusate Sodium (DSS) 100 MG Oral Cap Take 1 Cap by mouth TWICE DAILY. ? Glucose Blood In Vitro Strip 1 Strip by In Vitro route DAILY. Brand: One Touch, Dx: E11.9 ? Lancets Does not apply Misc by Does not apply route DAILY. Brand: One Touch, Dx: E11.9 ? Losartan Potassium 100 MG Oral Tab TAKE 1 TABLET BY MOUTH EVERY DAY ? metFORMIN HCL 1000 MG Oral Tab TAKE 1 TABLET BY MOUTH TWO TIMES DAILY ? metoprolol (LOPRESSOR) 25 MG Oral Tab TAKE 1 TABLET BY MOUTH TWO TIMES DAILY ? polyethylene glycol (MIRALAX) Oral Powder Take 17 g by mouth DAILY NEEDED. ? Sildenafil Citrate (VIAGRA) 100 MG Oral Tab Take 1 Tab by mouth DAILY NEEDED (for ED). ? Tamsulosin HCl (FLOMAX) 0.4 MG Oral Cap Take 1 Cap by mouth DAILY. No current facility-administered medications for this visit. Allergies Allergen Reactions ? Pcn [Penicillins] Unknown Reaction Social History Socioeconomic History ? Marital status: Spouse name: Not on file ? Number of children: Not on file ? Years of education: Not on file ? Highest education level: Not on file Occupational History ? Not on file Social Needs ? Financial resource strain: Not on file ? Food insecurity Worry: Not on file Inability: Not on file ? Transportation needs Medical: Not on file Non-medical: Not on file Tobacco Use ? Smoking status: Never Smoker ? Smokeless tobacco: Never Used Substance and Sexual Activity ? Alcohol use: Yes Alcohol/week: 2.0 standard drinks Types: 1 Glasses of wine, 1 Cans of beer per week Comment: glass wine/beer twice a week ? Drug use: No ? Sexual activity: Not on file Lifestyle ? Physical activity Days per week: Not on file Minutes per session: Not on file ? Stress: Not on file Relationships ? Social connections Talks on phone: Not on file Gets together: Not on file Attends lutheran service: Not on file Active member of club or organization: Not on file Attends meetings of clubs or organizations: Not on file Relationship status: Not on file ? Intimate partner violence Fear of current or ex partner: Not on file Emotionally abused: Not on file Physically abused: Not on file Forced sexual activity: Not on file Other Topics Concern ? Back Care Not Asked ? Bike Helmet Not Asked ? Blood Transfusions Not Asked ? Caffeine Concern Not Asked ? Exercise Yes Comment: gym ? Hobby Hazards Not Asked ? International Travel Not Asked ? Service Not Asked ? Occupational Exposure Not Asked ? Seat Belt Not Asked ? Self-Exams Not Asked ? Sleep Concern No ? Special Diet No ? Stress Concern No ? 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 Lives with , 2 children born in . Outdoor pets only. Over the last 2 weeks, have you been feeling down, depressed, anxious, or hopeless?: 0 Over the past 2 weeks, have you felt little interest or pleasure in doing things ?: 0 REVIEW OF SYSTEMS: Review of Systems Respiratory: Positive for cough. Negative for shortness of breath. Cardiovascular: Negative for chest pain. Gastrointestinal: Positive for constipation. Objective PHYSICAL EXAM: VITALS: BP 118/58 (BP Location: Right arm, Patient Position: Sitting) | Pulse 59 | Ht 6' (1.829 m) | Wt 193 lb (87.5 kg) | SpO2 97% | BMI 26.18 kg/m Body mass index is 26.18 kg/m. Physical Exam Alert, oriented, in no acute distress. Vitals as above. HEENT: Normocephalic, atraumatic. FREDDIE, EOMI. decreased blinking and facial expressions. Mouth andears unremarkable. Neck: No palpable lymphadenopathy in the submandibular, submental, anterior cervical, posterior cervical, or occipital chains, nor in the supraclavicular spaces. No JVD, thyromegaly. LUNGS: clear. HEART: Regular rate and rhythm. ABDOMEN: positive bowel sounds, soft, nontender, no hepatosplenomegaly, masses or bruits. EXTREMITIES: no cyanosis, clubbing, or edema. ASSESSMENT / IMPRESSION: ICD-9-CM ICD-10-CM 1. Type 2 diabetes mellitus without complication, without long-term current use of insulin (HCC)?controlled 250.00 E11.9 COMPREHENSIVE METABOLIC PANEL LIPID PROFILE GLYCOHEMOGLOBIN A1C GLYCOHEMOGLOBIN A1C LIPID PROFILE COMPREHENSIVE METABOLIC PANEL 2. 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 Closed fracture of sacrum with routine healing, unspecified portion of sacrum , subsequent encounter?occurred last year, now stable V54.17 S32.10XD 806.60 4. Essential hypertension?controlled 401.9 I10 5. Renal insufficiency?stable 593.9 N28.9 Patient Instructions Continue same medicines Lab today, as listed. I'll notify you of the results with a letter. follow up in 3 months Author: Mohinder Putnam MD 07/27/2019 16:15 documented in this encounter Plan of Treatment Date Type Specialty Care Team Description 10/27/2019 Office Visit Internal Medicine Mohinder Putnam MD [address] [place] [address] [phone] Health Maintenance Due Date Last Done Comments CT Colonography 1945 Cologuard 1945 Colonoscopy 1945 Colorectal Cancer Screening 1945 FIT/FOBT 1945 Sigmoidoscopy 1945 HEPATITIS C SCREENING 1986 ZOSTER IMMUNIZATION SERIES 1996 (1 of 2) MEDICARE ANNUAL WELLNESS 07/05/2016 07/05/2015, 10/25/2014 VISIT (Previously completed) INFLUENZA VACCINE (#1) 2019 05/22/2018 PNEUMOCOCCAL 65+YRS (2 of 2 05/23/2019 05/23/2018 - PCV13) FOOT EXAM 09/17/2019 09/16/2018, 09/16/2018, 03/26/2017, Additional history exists FALL RISK ASSESSMENT 09/30/2019 09/29/2018, 09/29/2018 HEMOGLOBIN A1C 01/27/2020 07/27/2019, 05/06/2019, 01/06/2019, Additional history exists DEPRESSION SCREENING 07/26/2020 07/27/2019 LIPID DISORDER SCREENING 07/26/2020 07/27/2019, 07/25/2019, 05/06/2019, Additional history exists Diabetic Eye Exam 11/17/2020 11/17/2018, 11/17/2018, 11/17/2018, Additional history exists DTaP/Tdap/Td Vaccines (2 - 07/30/2028 07/30/2018 Tdap) HEPATITIS A IMMUNIZATION Aged Out No longer eligible SERIES based on patient's age to complete this topic HPV IMMUNIZATION SERIES Aged Out No longer eligible based on patient's age to complete this topic MENINGOCOCCAL VACCINE IMM Aged Out No longer eligible based on patient's age to complete this topic documented as of this encounter Goals Goal Patient Goal Associated Recent Patient-Stated? Author Type Problems Progress Blood Pressure Blood Pressure HTN 118/58 No [place], < 140/90 (Hypertension), (07/27/2019 MD Mohinder CARE PLAN 3:46 PM EDT) INITIATED Note: Hypertension Care Plan Based on the patient's clinical history and according to JNC 8 guidelines target blood pressure goal is less than 140/90. Based on the patient's last blood pressure of BP: 162/80 mmHg the patient is at above goal. As your provider, it is important that I advise you regarding: your current medications and help you with any challenges you may face taking your medications as directed (ex. instructions, cost, side effects, and interactions). lifestyle changes: exercise, weight reduction, diet, dietary sodium reduction and medication compliance your clinical goals and how you can achieve success: weight reduction, exercise plan and diet improvements medication management: adjusted medications as appropriate patient education/self-management tools provided: Current self-management tools adequate To successfully manage my Hypertension I will: monitor my blood pressure daily, understanding that my goal is less than 140/ 90 per my healthcare provider's recommendation. I will schedule an appointment with my provider if consistent abnormal readings greater than 160/100. take medications every day as prescribed by my healthcare provider and if unable to take them I will discuss with my provider. monitor for symptoms of chest pain, chest tightness/pressure, irregular heartbeat, persistent dizziness, radiating arm pain, and neck or jaw pain. If any of these symptoms are noticed I will seek medical attention immediately by calling 911 exercise/walk 30 minutes 5 day(s) per week. If I experience chest pain, chest tightness, or shortness of breath, I will seek medical attention immediately. follow a diet rich in fruits, vegetables, and low-fat dairy products with reduced content of saturated & total fat. I will reduce my sodium intake daily. An example is the DASH diet. To obtain more information please refer to the DASH Eating Plan listed in Educational Resources. record my blood pressure results. Sally[employer] is safe and secure way for you to do this in your medical record online. try to obtain an ideal body weight. My recent weight was Weight: 211 lb ( 95.709 kg). My weight loss goal for my next office visit is 206 lbs . limit alcohol consumption. For men two drinks per day and women one drink per day. if currently smoking, will discuss how to quit smoking with my healthcare provider and work towards quitting. Educational Resources: National Heart, Lung, & Blood Davis http://nhlbi.nih.gov/hbp/index.html The DASH Diet Eating Plan http://www.nhlbi.nih.gov/health/health-topics/ topics/dash/ Academy of Nutrition & DIetetics http://eatright.org National Smoking Cessation Site http://smokefree.gov Blood Pressure < Blood Pressure 118/58 (07/27/2019 3:46 Mohinder Medellin MD 140/90 PM EDT) Note: This is an individualized treatment (blood pressure) goal for Shane Anderson: Displayed above (on the left) is your goal for blood pressure control. Your most recent blood pressure is also shown above, on the right. You should try to achieve blood pressures that are lower than your goal listed above (on the left). Diabetes < 7.0 Diabetes Type 2 diabetes 6.1 (07/27/2019 Mohinder Medellin, mellitus without 4:36 PM EDT) complication, without long-term current use of insulin Note: Diabetes Care Plan According to current 2014 ADA guidelines the patient A1C goal is less than 7. The patient's last A1C was Lab Results Lab Results Value Date/Time GLYCO 7.5 10/25/2013 0748 GLYCO 8.8 07/20/2013 1205 GLYCOPOCT 6.6% 11/23/2008 1632 The patient is:above goal . As your provider, it is important that I advise you regarding: your current medications and help you with any challenges you may face taking your medications as directed (ex. instructions, cost, side effects, and interactions). lifestyle changes:exercise, diet, glucose monitoring and medication compliance your clinical goals and how you can achieve success:weight reduction, exercise plan, diet management and glucose monitoring medication management: adjusted medications as appropriate patient education/self-management tools provided: Current self-management tools adequate To successfully manage my Diabetes I will: have lab work every six months if my previous A1c was 7 or less. If my results were greater than 7, I will have lab work every three months. My goal is to control my diabetes by keeping A1c below 7.0 take medications every day as prescribed by my healthcare provider and if unable to take them I will discuss with my provider. exercise/walk 30 minutes 5 day(s) per week. If I experience chest pain, chest tightness, or shortness of breath, I will seek medical attention immediately. check feet daily. If sores or irritation are noticed, will seek medical attention. follow a low carbohydrate and low fat diet. My goal is an LDL (bad cholesterol) number less than 100 when I have my routine lab work. check blood sugar as instructed and will call my healthcare provider if the results are consistently below 70 or above 300. I will monitor for symptoms of low blood sugar (feeling faint, dizzy, lig htheaded, jittery, sweaty, or hungry), if symptoms are noticed, I will eat or drink something (glucose tabs, orange juice, candy) to help raise sugar. record my blood sugar results. [employer] is safe and secure way for you to do this in your medical record online. try to obtain an ideal body weight. My recent weight was Weight: 211 lb ( 95.709 kg). My weight loss goal for my next office visit is 206. to prevent kidney problems common to people with diabetes I will complete a yearly Microalbumin to check for protein in urine. I will talk with my healthcare provider about medications to prevent diabetic renal disease. to prevent diabetic retinopathy I will see an eye doctor yearly. A yearly dilated eye exam helps prevent blindness. if currently smoking, will discuss how to quit smoking with my healthcare provider and work towards quitting. Education Resources: [place] Diabetic Association Site http://diabetes.org Academy of Nutrition & Dietetics Site http://eatright.org National Smoking Cessation Site http://smokefree.gov Glycohemoglobin A1c < 7.0 Diabetes 6.1 (07/27/2019 4:36 PM No Mohinder Putnam MD EDT) Note: This is an individualized treatment (diabetes control, HgbA1C) goal for Shane Anderson: Displayed above is your progress towards your HgbA1C goal. Your goal is shown above (on the left); your most recent HgbA1C is shown on the right. Note that lower numbers are better. Keep immunizations current Lifestyle Mohinder Medellin MD Note: This is an individualized lifestyle goal for Shane Anderson: Please be sure to keep up-to-date on recommended immunizations. For example, this would include a yearly influenza vaccine. Immunization status can be seen by looking at the Health Maintenance sections of your [employer], Plan of Care, and any After Visit Summaries. Take all prescribed medications as directed Self-management Mohinder Medellin MD Note: This is an individualized self-management goal for Shane Anderson: Please take all prescribed medications as directed. 1. Do not skip doses. If you cannot afford your medications, talk with your doctor. 2. Use a pill reminder system such as a pill box if needed. Your pharmacist can help you with this. 3. Contact your Pharmacy 5 days before your medication runs out. If you cannot take your medications for any reasons, talk with your doctor. 4. Please bring all of your medication bottles and inhalers (or a list of all your medications/inhalers) with you to every visit. Potential barriers to meeting all of your care plan goals will continue to be addressed on an ongoing basis. documented as of this encounter Procedures Procedure Name Priority Date/Time Associated Comments Diagnosis LIPID PROFILE Routine 07/27/2019 4:36 Type 2 diabetes Results for this PM EDT mellitus without procedure are in complication, the results without long-term section. current use of insulin ([facility]) GLYCOHEMOGLOBIN A1C Routine 07/27/2019 4:36 Type 2 diabetes Results for this PM EDT mellitus without procedure are in complication, the results without long-term section. current use of insulin ([facility]) COMPREHENSIVE METABOLIC Routine 07/27/2019 4:36 Type 2 diabetes Results for this PANEL PM EDT mellitus without procedure are in complication, the results without long-term section. current use of insulin ([facility]) documented in this encounter Results GLYCOHEMOGLOBIN A1C (07/27/2019 4:36 PM EDT) Glycohemoglobin A1C 6.1 (H) <=5.6 % [facility] Comment: GROUP LABORATORY Normal*: <=5.6% Pre Diabetes* Risk: 5.7-6.4% Diabetes* Risk: >=6.5% Glycemic Goals for Adult Diabetes*: <7.0% *(Adult Ranges)[place] [employer], Standards of Medical Care in Diabetes, 2018 Specimen Blood - Blood specimen (specimen) Performing Organization Address City/State/Zipcode Phone Number [facility] [address] [address] LIPID PROFILE (07/27/2019 4:36 PM EDT) Cholesterol 111 <200 mg/dl [facility] HDL Cholesterol 27 (L) >40 mg/dl [facility] Triglycerides 179 (H) <150 mg/dl [facility] LDL Cholesterol 48 <100 MG/DL [facility] Cholesterol / HDL Ratio 4.1 RATIO [facility] LDL / HDL Ratio 1.8 [facility] Non-HDL Cholesterol 84 0 - 130 MG/DL [facility] Patient Fasting: No [facility] Specimen Blood - Blood specimen (specimen) Performing Organization Address City/State/Zipcode Phone Number [facility] [address] [facility] [place] [address] COMPREHENSIVE METABOLIC PANEL (07/27/2019 4:36 PM EDT) Sodium 137 134 - 145 mmol/L [facility] Potassium 4.2 3.5 - 5.1 mmol/L [facility] Chloride 95 (L) 98 - 107 mmol/L [facility] CO2 30 22 - 30 mmol/L [facility] Calcium 9.2 8.3 - 10.1 mg/dl [facility] Albumin 4.5 3.5 - 5.0 g/dl [facility] BUN 41 (H) 9 - 20 mg/dl [facility] Creatinine 1.7 (H) 0.8 - 1.5 mg/dl [facility] Glucose 101 (H) 70 - 99 mg/dl [facility] Total Protein 7.6 6.3 - 8.2 g/dl [facility] Total Bilirubin 0.4 0.0 - 1.1 MG/DL [facility] AST 21 17 - 59 U/L [facility] ALT 20 (L) 21 - 72 U/L [facility] Alkaline 63 40 - 150 U/L [facility] Phosphatase [facility] eGFR 40 See Interpretation [facility] Comment: Below ml/min/1.73ml GROUP Estimated GFR Interpretation: Sq LABORATORY Above 60ml/min/1.73m2 = Normal Renal Function 30-59 ml/min/1.73m2 = Stage 3 Chronic Kidney Disease 15-29 ml/min/1.73m2 = Stage 4 Chronic Kidney Disease Less than 15 ml/min/1.73m2 = Stage 5 Chronic Kidney Disease The GFR value is calculated using the Modification of Diet in Renal Disease ( MDRD) Study Equation which can be found at: https://www.kidney.org/content/fziv-vsqmc-uahfhxkp BUN/Creatinine 24 (H) 6 - 22 [facility] Ratio [facility] Anion Gap 12 (H) 3 - 11 mmol/L [facility] A/G Ratio 1.5 0.8 - 2.0 ratio [facility] Specimen Blood - Blood specimen (specimen) Performing Organization Address City/State/Zipcode Phone Number [facility] [address] [address] [phone] documented in this encounter Visit Diagnoses Diagnosis Type 2 diabetes mellitus without complication, without long-term current use of insulin (HCC) PSP (progressive supranuclear palsy) (HCC) Other degenerative diseases of the basal ganglia Closed fracture of sacrum with routine healing, unspecified portion of sacrum, subsequent encounter Essential hypertension Unspecified essential hypertension Renal insufficiency Unspecified disorder of kidney and ureter documented in this encounter (Home) RO[address] [phone] [facility] [place] ([place]) [place] [address] documented as of this encounter Advance Directives Type Date Recorded 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
--- OUTSIDE RECORDS SUMMARY | 2019-08-14 12:59 | XMS REPORT | Continuity of Care Document ---
:1945 External Reference #:[id number] Author Name Scot Castillo M.D. (transmitted by agent of provider Zohra Camarillo ) Address [address], [place] [address] Care Team Providers Name Role Phone Mohinder Putnam MD - Internal Medicine Care Team Information Attorney General [phone] Problems Active Problems Provider Date Unsteady gait [...] Use Denies Drug Use Smoking Status Reviewed: 06/23/19 Patient has never smoked Exercise Type/Frequency Exercises [...] Carbidopa-Levodopa 2 by mouth three 180tabs Davey S. times a day Yolande Argueta 25-100mg Tablets Viagra 1 by mouth as Unknown 50mg Tablets needed Aspir-81 1 by mouth every Unknown 81mg Tablets day DR Chlorthalidone 1 by mouth every Unknown 25mg day Tablets Colace 1 tab every 12 Unknown 100mg Capsules hours as needed for constipation Stool Softener once daily Unknown 100mg Capsules Miralax take 1/2 packet Unknown [id number] Packet daily as needed for constipation Medications Administered in Office Medication SIG Qnty Indications Ordering Provider Date Depomedrol 40MG Ryland Burks M.D. 10/18/2015 Injection Immunizations Description No Information Available Vital Signs Date Vital Result Comment 06/23/2019 2:18pm Height 72.5 inches 6'0.50" Weight 195.00 lb Heart Rate 60 /min BP Systolic 138 mmHg BP Diastolic 78 mmHg BMI (Body Mass Index) 26.1 kg/m2 05/02/2019 9:29am Weight 195.12 lb Heart Rate 70 /min BP Systolic Sitting 130 mmHg BP Diastolic Sitting 78 mmHg Respiratory Rate 16 /min Results Description No Information Available Procedures Description No Information Available Medical Devices Description No Information Available Encounters Type Date Location Provider Dx Diagnosis Office Visit 06/23/2019 Elham Herring [facility]' [facility] 2:[facility] disease R29.6 Repeated falls Office Visit 05/02/2019 [facility] 9:[facility]a [facility] N.P. disease R41.3 Other amnesia R29.6 Repeated falls Office Visit 03/04/2019 2:45p Elham Herring [facility] Yolande disease Assessments Date Code Description Provider 06/23/2019 G20 Parkinson's disease Scot Castillo M.D. 06/23/2019 R29.6 Repeated falls Scot Castillo M.D. 05/02/2019 G20 Parkinson's disease Pricechristin Arredondo, N.P. 05/02/2019 R41.3 Other amnesia Price Arredondo, N.P. 05/02/2019 R29.6 Repeated falls Price Arredondo, N.P. 03/04/2019 G20 Parkinson's disease Scot Castillo M.D. Plan of Treatment Future Appointment(s):09/22/2019 11:45 am - Scot Castillo M.D. at [place] [facility]06/23/2019 - Scot Castillo M.D.G20 Parkinson's diseaseFollow up:Follow up in 3-4 [id number] Repeated falls Functional Status Description No Information Available Mental Status Description No Information Available Referrals Refer to Dr Reason for Referral Status Appt Date Created [facility] Movement Disorder PD, ? [facility] Sent [address] [place] [address] [phone] [facility] Physical [facility] AT [place] [address] [place] [address] [phone]
[2019-08-14 13:05] LABS: ABS Eosinophils 0.2 10^3/ul (0-0.6); ABS Lymphocytes 1.3 10^3/ul (1.0-4.8); ABS Monocytes 0.6 10^3/ul (0-0.8); ABS Neutrophils 4.7 10^3/ul (1.5-7.7); Eosinophil % 2.7 %; Hematocrit 28 % (42-52); Hemoglobin 9.6 g/dL (14.0-18.0); Lymphocyte % 19.7 %; Mean Corpuscular HGB Conc 34 g/dL (31-36); Mean Corpuscular Hemoglobin 31 pg (27-31); Mean Corpuscular Volume 92 fL (80-94); Mean Platelet Volume 8.6 fL (7.4-10.4); Platelet Count 230 10^3/uL (150-450); Red Blood Count 3.07 10^6 /uL (4.18-5.48); Red Cell Distribution Width 13 % (10-15); White Blood Count 6.8 10^3/uL (3.5-10.8)
[2019-08-14 13:15] LABS: Activated Partial Thrombo Time 31.2 seconds (26.0-38.0); INR 1.26 (0.82-1.09)
[2019-08-14 13:23] LABS: Albumin 2.8 g/dL (3.2-5.2); Albumin/Globulin Ratio 1.5 (1-3); BUN/Creatinine Ratio 21.8 (8-20); EGFR African American 63.8 (>60); EGFR Non-African American 52.7 (>60); Globulin 1.9 g/dL (2-4); HDL Cholesterol 24.4 mg/dL; Potassium 2.9 mmol/L (3.5-5.0); Total Bilirubin 0.4 mg/dL (0.2-1.0); Total Protein 4.7 g/dL (6.4-8.9)
[2019-08-14 13:25] LABS: Troponin I 0.01 ng/mL (<0.03)
[2019-08-14 13:27] LABS: Calcium 6.4 mg/dL (8.6-10.3)
[2019-08-14 14:27] LABS: Magnesium 1.5 mg/dL (1.9-2.7)
[2019-08-14 14:55] LABS: ABS Basophils 0.1 10^3/ul (0-0.2); ABS Eosinophils 0.1 10^3/ul (0-0.6); ABS Lymphocytes 0.9 10^3/ul (1.0-4.8); ABS Monocytes 0.7 10^3/ul (0-0.8); ABS Neutrophils 9.5 10^3/ul (1.5-7.7); Eosinophil % 0.9 %; Hematocrit 37 % (42-52); Hemoglobin 12.1 g/dL (14.0-18.0); Lymphocyte % 8.4 %; Mean Corpuscular HGB Conc 33 g/dL (31-36); Mean Corpuscular Hemoglobin 30 pg (27-31); Mean Corpuscular Volume 92 fL (80-94); Mean Platelet Volume 8.8 fL (7.4-10.4); Platelet Count 276 10^3/uL (150-450); Red Blood Count 3.98 10^6 /uL (4.18-5.48); Red Cell Distribution Width 14 % (10-15); White Blood Count 11.3 10^3/uL (3.5-10.8)
[2019-08-14] MEDS ORDERED: KCL 10 MEQ/50 ML IVPREMIX* 10 MEQ/50 ML BAG IV SCH (15:00)
[2019-08-14] MEDS ORDERED: Polyethylene Glycol 3350* 17 GM PACKET PO PRN (15:01)
[2019-08-14 15:10] LABS: BUN/Creatinine Ratio 19.5 (8-20); Calcium 8.2 mg/dL (8.6-10.3); EGFR African American 50.1 (>60); EGFR Non-African American 41.4 (>60); Potassium 4.1 mmol/L (3.5-5.0)
[2019-08-14 15:54] LABS: Urine Appearance Clear; Urine Bilirubin Negative (Negative); Urine Blood Negative (Negative); Urine Color Straw; Urine Glucose Negative (Negative); Urine Ketones Negative (Negative); Urine Nitrite Negative (Negative); Urine Protein Negative (Negative); Urine Specific Gravity 1.009 (1.010-1.030); Urine Urobilinogen Negative (Negative)
[2019-08-14 16:00] LABS: HDL Cholesterol 32.5 mg/dL; Magnesium 1.7 mg/dL (1.9-2.7)
[2019-08-14] MEDS ORDERED: Dextrose 50% Syringe 50 ML* 25 GM/50 ML SYRINGE IV PUSH PRN (16:01)
[2019-08-14 16:03] LABS: Troponin I 0.01 ng/mL (<0.03)
[2019-08-14 16:05] LABS: TSH (Thyroid Stimulating Horm) 3.15 mcIU/mL (0.34-5.60)
--- NOTE | 2019-08-14 16:30 | CONS ---
CARDIOLOGY CONSULTATION: DATE OF CONSULT: 08/14/19 PATIENT OF: Dr. Putnam. REQUESTING PHYSICIAN: Dr. Sanderson. REASON FOR EVALUATION: Syncope. HISTORY OF PRESENT ILLNESS: This is a very pleasant 74-year-old gentleman who has a history of Parkinson's, hypertension, diabetes. He was in his usual state of health today, which includes using a walker to get around his house. He apparently took his medications around 8 o'clock and then had breakfast. Shortly after breakfast, he was sitting in a chair and apparently lost consciousness. EMS was called. He was found to be bradycardic and received atropine with improvement in his heart rate and was found in the ER. His EKG from 05/15/19 revealed sinus rhythm with a first-degree AV block and slight inferior ST elevation 0.5 mm. His EKG from 1326 again shows sinus bradycardia at 56, QTc of 450, borderline first- degree AV block and an APC. He does not recall the event. He did not feel poorly before. He remembers waking up in the ambulance. He denies previous syncope, valvular heart disease , rheumatic fever, coronary artery disease. He says normally he walks with his walker around the house without shortness of breath or chest pain. He said he had an evaluation about 10 plus years ago and had a stress test at [place] which he says was negative. PAST MEDICAL HISTORY: Includes: 1. Diabetes. 2. Hypertension. 3. Hyperlipidemia. 4. Alcohol use of 1 beer a few days a week. 5. Parkinsonism, being evaluated by Dr. Castillo. He denies previous syncope or stroke. PAST SURGICAL HISTORY: Includes cataracts. MEDICATIONS: His medications at home include: 1. Metoprolol 25 mg b.i.d. 2. MiraLAX 17 g a day. 3. Aspirin 81 mg a day. 4. Tamsulosin 0.4 mg a day. 5. Losartan 100 mg a day. 6. Colace 100 mg b.i.d. 7. Chlorthalidone 25 mg q.a.m. 8. Atorvastatin 20 mg a day. 9. Metformin 1000 mg b.i.d. ALLERGIES: Include PENICILLIN. FAMILY HISTORY: He has 1 brother and 4 sisters, no premature coronary disease. His parents in their 80s and had no coronary disease. SOCIAL HISTORY: He is . He has 2 adult children. 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 He drinks 1 cup of caffeinated coffee a day. REVIEW OF SYSTEMS: Review of systems x10 was negative except as above. He does have trouble urinating and is on tamsulosin. PHYSICAL EXAM: He is a well-developed, well-nourished gentleman, overweight, in no apparent distress. Blood pressure 133/76, heart rate of 59. Atraumatic, normocephalic. Extraocular muscles intact. Sclerae anicteric. No significant JVD. Carotids 2+ without bruits. No cervical adenopathy. Cardiac Exam: S1, S2 without murmurs, gallops, or rubs. PMI not displaced laterally. Chest: Clear. No CVAT. Abdomen: Bowel sounds present, nontender. No hepatosplenomegaly. Femoral pulses intact without bruits. Distal pulses intact , no edema. Motor strength is 5/5 bilaterally. Deep tendon reflexes 2/4. Alert and oriented x3. He is aware that it is the end of July and it is 2019, was not quite sure of the date. Of note, his blood pressures earlier in the ER were in the 108 to 116/60s to 70s. DIAGNOSTIC STUDIES/LAB DATA: His labs include elevated white count of 11.3, hemoglobin of 12.1, hematocrit 37, platelet count of 276. Sodium 136, potassium of 4.1, BUN of 32, creatinine of 1.64. Lactic acid was 3.4. Calcium low at 8.2, ionized calcium low at 1.08, magnesium 1.5. Apparently initial labs which were abnormal were drawn, may have been artifactually abnormal due to IV site and repeats are pending. The initial mag was low at 1.5, but again this may be artifactually low. EKG was described. Chest x-ray, no active disease. Brain CT revealed no definite intracranial mass or hemorrhage. IMPRESSION AND PLAN: My impression is that Mr. Anderson has risk factors of coronary disease and had an episode of syncope of unclear etiology. It is possible that this was vasovagal or medication related given his multiple vasoactive medicines and low normal blood pressure and low heart rate. He also may have some degree of autonomic dysfunction related to his Parkinson's. He has risk factors for coronary disease and can have a pseudo-ischemic event. For the time being, I would recommend the followin. Would reduce his metoprolol to 12.5 mg twice a day, skip the evening dose. 2. Would consider lowering his losartan perhaps to 25 mg twice a day in divided doses. 3. Would consider stopping his diuretic. 4. Would increase hydration. 5. Would decrease intake of caffeine and alcohol. 6. Would recheck the magnesium and replace as needed. 7. Would replace his calcium as needed. 8. Would obtain an echocardiogram. 9. Would consider pharmacologic stress test to evaluate for ischemia. 10. TSH is pending. Further recommendation will depend on his clinical course. [id number]/[facility] #: [id number] addendum: discussed with Dr. Sanderson 08.14.19. Patient had recently started the tamsulosin which may have contributed to his hypotension/syncope. He also use viagra prior to the event. Will continue to adjust meds to avoid recurrent hypotension. MENDOZA 08.15.19 4;31 pm. MICHEL
[2019-08-14] MEDS: Insulin LISPRO* 1 UNITS UNIT SUBCUT SCH (17:16)
[2019-08-14] MEDS: NS 0.9% 1000 ML** 1,000 ML IV SCH (17:28)
[2019-08-14] MEDS ORDERED: Atorvastatin* 20 MG TAB PO SCH (18:00)
--- NOTE | 2019-08-14 19:54 | HP ---
CC: Dr. Putnam; Dr. Julio * HISTORY AND PHYSICAL: DATE OF ADMISSION: 08/14/19 TIME OF EVALUATION: 02:50 p.m. PRIMARY CARE PROVIDER: Dr. Putnam. CONSULTING TWISTING FRAME CHANGER: Dr. Julio. CHIEF COMPLAINT: "Unresponsive." HISTORY OF PRESENT ILLNESS: Mr. Anderson is a 74-year-old male with a past medical history of parkinsonism, hypertension, hyperlipidemia, type 2 diabetes who presented to the emergency room by EMS after an episode of unresponsiveness at home. The patient is able to tell me he woke up feeling well this morning and he remembers sitting down on the chair in the living room, but the next thing that he remembers after that is waking up in the ambulance. I called his , Nereyda Cullen, and she confirms that the patient woke up feeling well. He actually took 1 tablet of Viagra and they had intercourse supervisor orchard and she states that he had no complaints. Around 10, she noticed that the patient was making "strange sounds" and when she asked him what was happening, she noticed that his eyes were downcast and he was not responding, so EMS was called. She states that when EMS arrived, they lowered him to the floor and he was still unresponsive. As per emergency room provider report, the patient was described as bradycardic with a thready pulse by EMS and he received 0.5 mg of atropine prior to arrival. He was described as alert upon arrival to the emergency room with slurred speech that was described as baseline. He was initially triaged as a code morrison, but he quickly improved. His workup in the emergency room included mild lactic acid elevation, negative CT of the brain, and the hospitalist service was called for further evaluation. Of note, the patient was started on tamsulosin 4 to 5 days ago. PAST MEDICAL HISTORY: 1. Parkinsonism (Parkinson disease versus progressive supranuclear palsy) with improvement with Sinemet. 2. Hypertension. 3. Hyperlipidemia. 4. Type 2 diabetes. 5. Status post detached retina repair in 2000. 6. Status post cataract surgery. 7. Status post appendectomy. MEDICATION LIST: 1. Aspirin 81 mg p.o. daily. 2. Atorvastatin 20 mg p.o. daily. 3. Sinemet 25/100 two tablets p.o. t.i.d. 4. Chlorthalidone 25 mg p.o. daily. 5. Vitamin B12 500 mcg p.o. daily. 6. Colace 100 mg p.o. b.i.d. 7. Losartan 100 mg p.o. daily. 8. Metformin 1000 mg p.o. b.i.d. 9. Metoprolol tartrate 25 mg p.o. b.i.d. 10. MiraLAX 17 g p.o. daily as needed for constipation. 11. Viagra 100 mg p.o. monthly as needed for erectile dysfunction. 12. Tamsulosin 0.4 mg p.o. daily. ALLERGIES: With PENICILLIN, the patient had unknown reaction. FAMILY HISTORY: The patient is unable to provide a meaningful family history at this time, but as per records his mother had a history of breast cancer and type 2 diabetes and his father had a history of testicular cancer. SOCIAL HISTORY: No history of tobacco, alcohol, or drug use. He lives with his and she is his surrogate decision maker, Nereyda Jayjuan, phone number is [phone]. REVIEW OF SYSTEMS: Somewhat limited as the patient states that he does not recall anything, but all the pertinent negatives as per the HPI. PHYSICAL EXAMINATION GENERAL: The patient is a pleasant elderly gentleman, lying in the ED stretcher , in no acute distress. VITAL SIGNS: Temperature is 96.8, heart rate is 65, respiratory rate is 12, oxygen saturation is 98% on room air, and blood pressure is 130/79. HEENT: Pupils are equal. Moist mucous membranes. CHEST: Breath sounds bilaterally with no added sounds. CVS: Normal S1, S2. Regular rate and rhythm. ABDOMEN: Soft, nontender, nondistended. Bowel sounds present. NEURO: He is alert, oriented x3. Face is symmetric. Speech is mildly dysarthric but described as baseline. Able to move all 4 extremities. LABORATORY AND IMAGING DATA: The patient had CBC that showed WBC of 11.3, hemoglobin 12.1, hematocrit 37, platelets of 276. INR is 1.2. Chemistry showed a sodium of 136, potassium of 4.1, chloride 104, bicarb of 24, BUN 32, creatinine of 1.64, glucose of 108, lactic acid is 3.5, calcium is 8.2. TSH is pending. CT of the brain without contrast showed no definite intracranial mass or hemorrhage. Chest x-ray showed no active cardiopulmonary disease. EKG done on 08/14/19 at 1:27 p.m. showed sinus bradycardia at 56 beats per minute with no acute ischemic changes and no significant change when compared to his prior EKG from 07/31/18. ASSESSMENT AND PLAN: Mr. Anderson is a 74-year-old male with a past medical history of parkinsonism, hypertension, hyperlipidemia, type 2 diabetes who presented to the emergency room after an episode of unresponsiveness, likely secondary to syncopal episode in the setting of symptomatic bradycardia. 1. Syncopal episode/symptomatic bradycardia. As per EMS report, the patient was bradycardic and had a thready pulse, but unfortunately there are no strips to see what rhythm he was at that time. Syncopal episode/symptomatic bradycardia. I suspect this likely secondary to polypharmacy in this patient with parkinsonism that is on diuretic, losartan, metoprolol, Viagra, and was recently started on Flomax. I am going to hold his metoprolol today, decrease his losartan dose, continue Flomax but change it to bedtime only, and monitor him on telemetry. An echocardiogram was ordered as well as cardiology consultation with Dr. Julio. I suspect his mild creatinine elevation as well as mild lactic acidosis are likely secondary to poor perfusion that may be associated with dehydration. His lactic acid elevation may also be associated with metformin use. The patient will receive gentle IV hydration and he will be monitored. 2. Parkinsonism. As per the patient's , the patient was never fully diagnosed with Parkinson disease, there was some suspicion for progressive supranuclear palsy, but in any case he shows improvement with Sinemet so this has been continued. 3. Hypertension. As described above. I am going to hold his metoprolol today , cut down his losartan, and hold his diuretics and monitor his blood pressure. 4. Type 2 diabetes. The patient will have fingersticks a.c. and he will be covered with a lispro sliding scale. I am going to hold his metformin in the meantime. 5. DVT prophylaxis. The patient has a score of 2 on the DVT Prophylaxis Risk Assessment Guide and he will be started on subcutaneous heparin. 6. Code status was discussed with the patient and his . He actually had meeting scheduled with Dr. Putnam tomorrow to fill up his MOLST form. The patient defers the decision to his and she states that they already talked about it and that she is comfortable making decision for him to be a do not resuscitate. He would be agreeable with a trial of intubation in case of respiratory failure. TIME SPENT: Approximately 60 minutes was spent with patient and interview , medical records review, physical examination to complete the admission, more than half of this time was spent [id number] with the patient in coordination of care. [id number]/[facility] #: [id number] MICHEL
[2019-08-14] MEDS ORDERED: Tamsulosin CAP* 0.4 MG PO SCH (21:00)
[2019-08-14] MEDS: Heparin VIAL(*) 5000 UNITS/ML VIAL (FIVE THOUSAND) SUBCUT SCH (21:13)
[2019-08-14] MEDS: Carbidopa/Levodop 25/100 MG TAB(*) PO SCH (21:14)
[2019-08-14] MEDS: Calcium Carbonate TAB* 1250 MG (CALCIUM 500 MG) PO SCH (21:14)
[2019-08-14] MEDS: Docusate CAP* 100 MG PO SCH (21:14)
[2019-08-15] MEDS: NS 0.9% 1000 ML** 1,000 ML IV SCH (02:34)
[2019-08-15] MEDS: Heparin VIAL(*) 5000 UNITS/ML VIAL (FIVE THOUSAND) SUBCUT SCH (05:22)
[2019-08-15 07:06] LABS: ABS Eosinophils 0.1 10^3/ul (0-0.6); ABS Lymphocytes 1.8 10^3/ul (1.0-4.8); ABS Monocytes 0.7 10^3/ul (0-0.8); ABS Neutrophils 6.5 10^3/ul (1.5-7.7); Eosinophil % 1.6 %; Hematocrit 35 % (42-52); Hemoglobin 11.9 g/dL (14.0-18.0); Lymphocyte % 19.5 %; Mean Corpuscular HGB Conc 34 g/dL (31-36); Mean Corpuscular Hemoglobin 31 pg (27-31); Mean Corpuscular Volume 92 fL (80-94); Mean Platelet Volume 9.1 fL (7.4-10.4); Platelet Count 261 10^3/uL (150-450); Red Blood Count 3.78 10^6 /uL (4.18-5.48); Red Cell Distribution Width 13 % (10-15); White Blood Count 9.2 10^3/uL (3.5-10.8)
[2019-08-15 07:20] LABS: BUN/Creatinine Ratio 19.4 (8-20); Calcium 8.8 mg/dL (8.6-10.3); EGFR African American 51.5 (>60); EGFR Non-African American 42.6 (>60); Potassium 3.9 mmol/L (3.5-5.0)
[2019-08-15] MEDS: Insulin LISPRO* 1 UNITS UNIT SUBCUT SCH ×2 (07:41→11:54)
[2019-08-15] MEDS ORDERED: Regadenoson* 0.4 MG/5 ML SYRINGE ONE (07:53)
[2019-08-15] MEDS: Carbidopa/Levodop 25/100 MG TAB(*) PO SCH (08:33)
[2019-08-15] MEDS ORDERED: Cyanocobalamin TAB* 500 MCG PO SCH (09:00)
[2019-08-15] MEDS ORDERED: Aspirin 81 mg CHEW TAB* 81 MG TAB.CHEW PO SCH (09:00)
[2019-08-15] MEDS: Calcium Carbonate TAB* 1250 MG (CALCIUM 500 MG) PO SCH (09:00)
[2019-08-15] MEDS ORDERED: Losartan TAB* 25 MG PO SCH ×2 (09:00)
[2019-08-15] MEDS ORDERED: Tamsulosin CAP* 0.4 MG PO SCH (09:00)
[2019-08-15] MEDS: Docusate CAP* 100 MG PO SCH (09:01)
--- NOTE | 2019-08-15 09:40 | ECHO ---
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 History: Parkinson's. Risk factors: Hypertension. Diabetes mellitus. Dyslipidemia. Conclusions Summary: - Left ventricle: Systolic function is normal. The estimated ejection fraction is 60-65%. Wall motion is normal; there are no regional wall motion abnormalities. - Right ventricle: Systolic function is normal. - Mitral valve: There is trace regurgitation. - Aortic valve: There is no evidence of stenosis. - Pulmonary arteries: Systolic pressure can not be accurately estimated. - Study data: No prior study is available for comparison. Study data: Transthoracic echocardiogram. Procedure: Transthoracic echocardiography was performed. Image quality was fair. The study was technically limited due to poor acoustic window availability. Complete 2D, spectral Doppler, and color flow Doppler. Location: Bedside. Patient status: Inpatient. Patient room number: 452. No prior study is available for comparison. Rhythm: Normal sinus rhythm with PAC's. Findings Left ventricle: The cavity size is normal. Wall thickness is at the upper limits of normal. Systolic function is normal. The estimated ejection fraction is 60-65%. Wall motion is normal; there are no regional wall motion abnormalities. There is no consistent Doppler evidence of clinically significant diastolic dysfunction. Right ventricle: The cavity size is normal. Systolic function is normal. Left atrium: The atrium is at the upper limits of normal in size. Right atrium: The atrium is at the upper limits of normal in size. Mitral valve: The leaflets are mildly thickened. There is no evidence of stenosis. There is trace regurgitation. Aortic valve: The valve is trileaflet. The leaflets are mildly thickened. There is no evidence of stenosis. There is no significant regurgitation. Tricuspid valve: The leaflets are normal thickness. There is no evidence of stenosis. There is trace regurgitation. Pulmonic valve: The leaflets are normal thickness. There is no evidence of stenosis. There is trace regurgitation. Aorta: Aortic root: The aortic root is mildly dilated. Ascending aorta: The ascending aorta is mildly dilated. Aortic arch: The aortic arch is appears normal. Pericardium: A prominent pericardial fat pad is present. There is no significant pericardial effusion. Pulmonary arteries: The main pulmonary artery is normal-sized. Systolic pressure can not be accurately estimated. Systemic veins: Inferior vena cava: The vessel is mildly dilated. There is (>= 50%) respiratory change in the IVC dimension. Measurements Left ventricle Value Ref Right atrium Value Ref BUCKY, LAX 5.0 cm 4.2 - 5.8 SI dim, ES 5.3 cm 3.4 - 5.3 ESD, LAX 3.2 cm 2.5 - 4.0 ML dim, ES, A4C 3.5 cm 2.6 - 4.4 FS, LAX 36 % 25 - 43 Estimated RAP 8 mm Hg --------- PW, ED, LAX 1.0 cm 0.6 - 1.0 FS 36 % 25 - 43 Aortic valve Value Ref Mid-wall FS 17 % Sadaf diam, ED 2.3 cm --------- PW, ED 1.0 cm 0.6 - 1.0 Peak v, S 1.4 m/sec --------- E', lat sadaf, TDI 10.2 cm/sec >=10.0 VTI, S 31.6 cm --- ------ E/e', lat sadaf, 9 Mean grad, S 4.0 mm Hg ------ --- TDI Peak grad, S 8.0 mm Hg --------- E', med sadaf, TDI 10.0 cm/sec >=7.0 LVOT/AV, VTI ratio 0.82 --- ------ E/e', med sadaf, 9 JERRI, VTI 2.85 cm^2 ------ --- TDI JERRI, Vmax 3.19 cm^2 --------- E', avg, TDI 10.1 cm/sec E/e', avg, TDI 9 <=14 Mitral valve Value Ref Peak E 0.88 m/sec --------- LVOT Value Ref Peak A 0.63 m/sec --------- Diam, S 2.10 cm Decel time 190 ms --------- Area 3.5 cm^2 Peak grad, D 3.1 mm Hg --------- Peak meryl, S 1.29 m/sec Peak E/A ratio 1.4 --------- VTI, S 26.0 cm Peak grad, S 7 mm Hg Pulmonic valve Value Ref Mean grad, S 3 mm Hg Peak v, S 1 m/sec --------- SV 91 ml Peak grad, S 4.0 mm Hg --------- SV/bsa 44 ml/m^2 Aortic root Value Ref Ventricular septum Value Ref Root diam 3.7 cm <4.2 IVS, ED 1.0 cm 0.6 - 1.0 Ascending aorta Value Ref Right ventricle Value Ref AAo AP diam, S 3.8 cm --------- BUCKY, LAX 3.6 cm BUCKY minor ax, A4C 3.4 cm 1.9 - 3.5 Aortic arch Value Ref mid Arch diam 2.0 cm --------- Left atrium Value Ref Decending aorta Value Ref AP dim, ES 4.00 cm 3.00 - Shelbie peak meryl 0.94 m/sec --------- 4.00 ML dim, A4C 4.1 cm Inferior vena cava Value Ref SI dim, A4C 4.6 cm Diam 2.2 cm --------- Vol/bsa, ES, 1-p 16 ml/m^2 12 - 37 A4C Vol/bsa, ES, A/L 20 ml/m^2 16 - 34 Legend: (L) and (H) samia values outside specified reference range. Prepared and electronically signed by Stas Schuler MD 08/15/2019 09:39
[2019-08-15 11:54] VITALS: BP 133/66
== END 2019-08-15 14:10 | disposition home or self-care (01) ==
LOC: ED 12:44 → MEDTELE 14:59
PROVIDERS: ADMIT Internal Medicine; ATTEND Internal Medicine
DX: G20 Parkinson's disease (principal); R41.0 Disorientation, unspecified; I10 Essential (primary) hypertension; E78.5 Hyperlipidemia, unspecified; E11.9 Type 2 diabetes mellitus without complications; R55 Syncope and collapse; Z79.82 Long term (current) use of aspirin; Z79.899 Other long term (current) drug therapy; Z79.84 Long term (current) use of oral hypoglycemic drugs; Z88.0 Allergy status to penicillin; M54.9 Dorsalgia, unspecified; E87.6 Hypokalemia
CPT/HCPCS: 36415; 70450; 71045; 78452; 80048; 80053; 80061; 81003; 82330; 82550; 83605; 83735; 84443; 84450; 84460; 84484; 85025; 85610; 85730; 93005; 93017; 93306; 96360; 96361; 96372; 99285; A9270-GY; A9502; G0378; J1644; J2785; J3480

== ENCOUNTER 2020-05-29 16:02 | Inpatient (IN) ==
[2020-05-29] MEDS ORDERED: NS 0.9% 1000 ml BAG 1,000 ML IV ONE ×3 (16:23→17:29)
[2020-05-29 16:55] LABS: ABS Lymphocytes 0.9 10^3/ul (1.0-4.8); ABS Monocytes 0.5 10^3/ul (0-0.8); ABS Neutrophils 11.4 10^3/ul (1.5-7.7); Eosinophil % 0.3 %; Hematocrit 36 % (42-52); Hemoglobin 12.1 g/dL (14.0-18.0); Lymphocyte % 6.7 %; Mean Corpuscular HGB Conc 33 g/dL (31-36); Mean Corpuscular Hemoglobin 30 pg (27-31); Mean Corpuscular Volume 91 fL (80-94); Mean Platelet Volume 10.1 fL (7.4-10.4); Platelet Count 294 10^3/uL (150-450); Red Blood Count 3.99 10^6 /uL (4.18-5.48); Red Cell Distribution Width 13 % (10-15); White Blood Count 12.8 10^3/uL (3.5-10.8)
[2020-05-29 17:16] LABS: Albumin 3.9 g/dL (3.2-5.2); Albumin/Globulin Ratio 1.4 (1-3); BUN/Creatinine Ratio 18.8 (8-20); EGFR African American 41.9 (>60); EGFR Non-African American 34.6 (>60); Globulin 2.7 g/dL (2-4); Potassium 4.4 mmol/L (3.5-5.0); Total Bilirubin 0.4 mg/dL (0.2-1.0); Total Protein 6.6 g/dL (6.4-8.9)
[2020-05-29 18:43] LABS: T4, Total 10.67 mcg/dL (6.09-12.23)
[2020-05-29 18:47] LABS: TSH Ultra Thyroid Stim Horm 4.54 mcIU/mL (0.34-5.60)
[2020-05-29 23:27] LABS: Urine Appearance Clear; Urine Bilirubin Negative (Negative); Urine Blood Negative (Negative); Urine Color Yellow; Urine Glucose Negative (Negative); Urine Ketones Negative (Negative); Urine Nitrite Negative (Negative); Urine Protein Negative (Negative); Urine Specific Gravity 1.011 (1.010-1.030); Urine Urobilinogen Negative (Negative)
[2020-05-30] MEDS ORDERED: Polyethylene Glycol 3350 17 GM PACKET PO PRN (00:32)
[2020-05-30] MEDS ORDERED: Dextrose 50% Syringe 50 ml 25 GM/50 ML SYRINGE IV PUSH PRN (01:01)
[2020-05-30] MEDS ORDERED: NS 0.9% 1000 ml BAG 1,000 ML IV SCH (01:15)
[2020-05-30] MEDS: Heparin 5000 UNITS/ML 1 mL VIAL SUBCUT SCH ×3 (05:21→20:04)
[2020-05-30] MEDS ORDERED: Carbidopa/Levodop 25/100 MG TAB PO SCH (09:00)
[2020-05-30] MEDS: CMCS:Carbidopa/Levodopa ODT (NF) 25/100 ODT SL SCH ×3 (10:20→19:58)
[2020-05-30] MEDS ORDERED: Lactated Ringers 1000 ml BAG 1,000 ML IV SCH (14:00)
[2020-05-30 14:45] LABS: C Reactive Protein 5.04 mg/L (<8.01)
[2020-05-30] MEDS: cefTRIAXone 1 gm/50 mL NS BAG 1 GM/50 ML BAG IVPB SCH (15:06)
[2020-05-30] MEDS ORDERED: NS 0.9% 1000 ml BAG 1,000 ML IV ONE (15:25)
[2020-05-30] MEDS: NS 0.9% 1000 ml BAG 1,000 ML IV SCH (17:08)
[2020-05-31] MEDS: NS 0.9% 1000 ml BAG 1,000 ML IV SCH ×2 (04:37→14:22)
[2020-05-31] MEDS: Heparin 5000 UNITS/ML 1 mL VIAL SUBCUT SCH ×2 (04:37→14:23)
[2020-05-31 07:27] LABS: ABS Basophils 0.1 10^3/ul (0-0.2); ABS Eosinophils 0.4 10^3/ul (0-0.6); ABS Neutrophils 6.7 10^3/ul (1.5-7.7); Hematocrit 32 % (42-52); Hemoglobin 10.8 g/dL (14.0-18.0); Mean Corpuscular HGB Conc 34 g/dL (31-36); Mean Corpuscular Hemoglobin 31 pg (27-31); Mean Corpuscular Volume 92 fL (80-94); Mean Platelet Volume 9.9 fL (7.4-10.4); Platelet Count 224 10^3/uL (150-450); Red Blood Count 3.52 10^6 /uL (4.18-5.48); Red Cell Distribution Width 13 % (10-15); White Blood Count 10.2 10^3/uL (3.5-10.8)
[2020-05-31 08:05] LABS: Calcium 7.6 mg/dL (8.6-10.3); Potassium 3.9 mmol/L (3.5-5.0)
[2020-05-31 08:11] LABS: BUN/Creatinine Ratio 17.8 (8-20); EGFR African American 62.5 (>60); EGFR Non-African American 51.7 (>60)
[2020-05-31] MEDS: CMCS:Carbidopa/Levodopa ODT (NF) 25/100 ODT SL SCH ×2 (08:29→14:24)
[2020-05-31] MEDS: cefTRIAXone 1 gm/50 mL NS BAG 1 GM/50 ML BAG IVPB SCH (14:28)
[2020-05-31 15:52] VITALS: BP 137/70
[2020-05-31] MEDS ORDERED: Docusate LIQ 100 MG/10 ML UDC PO SCH (22:00)
== END 2020-05-31 16:45 | disposition home or self-care (01) | DRG 57 ==
LOC: ED 16:02 → MEDTELE 16:02
PROVIDERS: ADMIT Internal Medicine; ATTEND Student in an Organized Health Care Education/Training Program

== ENCOUNTER 2020-11-12 03:37 | Observation (INO) ==
[2020-11-12] MEDS ORDERED: Lactated Ringers 1000 ml BAG IV.FLUID IV ONE (03:52)
[2020-11-12 04:42] LABS: ABS Lymphocytes 1.6 10^3/ul (1.0-4.8); ABS Monocytes 0.8 10^3/ul (0-0.8); ABS Neutrophils 8.7 10^3/ul (1.5-7.7); Eosinophil % 0.4 %; Hematocrit 38 % (42-52); Hemoglobin 12.3 g/dL (14.0-18.0); Lymphocyte % 13.9 %; Mean Corpuscular HGB Conc 32 g/dL (31-36); Mean Corpuscular Hemoglobin 30 pg (27-31); Mean Corpuscular Volume 93 fL (80-94); Mean Platelet Volume 9.3 fL (7.4-10.4); Platelet Count 307 10^3/uL (150-450); Red Blood Count 4.09 10^6 /uL (4.18-5.48); Red Cell Distribution Width 14 % (10-15); White Blood Count 11.2 10^3/uL (3.5-10.8)
[2020-11-12 04:44] LABS: Urine Appearance Cloudy; Urine Bilirubin Negative (Negative); Urine Blood Negative (Negative); Urine Color Yellow; Urine Glucose Negative (Negative); Urine Ketones Trace (Negative); Urine Nitrite Positive (Negative); Urine Protein 2+(100 mg/dL) (Negative); Urine Specific Gravity 1.015 (1.002-1.030); Urine Urobilinogen Negative (Negative)
[2020-11-12 04:48] LABS: Urine Bacteria Absent (Absent); Urine Red Blood Cell Absent (Absent); Urine White Blood Cell 1+(6-10/hpf) (Absent)
[2020-11-12 04:50] LABS: Activated Partial Thrombo Time 30.3 seconds (26.0-38.0); INR 1.08 (0.82-1.09)
[2020-11-12 05:01] LABS: Albumin 3.9 g/dL (3.2-5.2); Albumin/Globulin Ratio 1.3 (1-3); C Reactive Protein 1.02 mg/L (<8.01); Calcium 8.9 mg/dL (8.6-10.3); EGFR African American 36.7 (>60); EGFR Non-African American 30.4 (>60); Potassium 4.6 mmol/L (3.5-5.0); Total Bilirubin 0.3 mg/dL (0.2-1.0); Total Protein 6.9 g/dL (6.4-8.9)
[2020-11-12 05:03] LABS: Troponin I 0.01 ng/mL (<0.03)
[2020-11-12] MEDS ORDERED: cefTRIAXone 1 gm/50 mL NS BAG 1 GM/50 ML BAG IV ONE (05:48)
[2020-11-12] MEDS ORDERED: Albuterol HFA INHALER 8 gm MDI INH PRN (08:29)
[2020-11-12] MEDS ORDERED: NS 0.9% 1000 ml BAG 1,000 ML IV SCH (08:30)
[2020-11-12] MEDS ORDERED: hydrALAZINE 20 mg/ml 1 ML Vial IV IV SLOW PU PRN (08:37)
[2020-11-12] MEDS ORDERED: Dextrose 50% Syringe 50 ml 25 GM/50 ML SYRINGE IV PUSH PRN (09:31)
[2020-11-12] MEDS: Carbidopa/Levodop 25/100 MG TAB PO SCH ×3 (11:30→21:50)
[2020-11-12] MEDS: Polyethylene Glycol 3350 17 GM PACKET PO SCH (11:34)
[2020-11-12] MEDS: Heparin 5000 UNITS/ML 1 mL VIAL SUBCUT SCH ×2 (15:28→21:51)
[2020-11-13] MEDS ORDERED: cefTRIAXone 1 gm/50 mL NS BAG 1 GM/50 ML BAG IVPB SCH (06:00)
[2020-11-13 06:57] LABS: ABS Basophils 0.1 10^3/ul (0-0.2); ABS Eosinophils 0.4 10^3/ul (0-0.6); ABS Monocytes 0.6 10^3/ul (0-0.8); ABS Neutrophils 4.3 10^3/ul (1.5-7.7); Hematocrit 33 % (42-52); Hemoglobin 11.2 g/dL (14.0-18.0); Lymphocyte % 26.7 %; Mean Corpuscular HGB Conc 34 g/dL (31-36); Mean Corpuscular Hemoglobin 31 pg (27-31); Mean Corpuscular Volume 92 fL (80-94); Mean Platelet Volume 9.8 fL (7.4-10.4); Platelet Count 245 10^3/uL (150-450); Red Blood Count 3.61 10^6 /uL (4.18-5.48); Red Cell Distribution Width 14 % (10-15); White Blood Count 7.4 10^3/uL (3.5-10.8)
[2020-11-13 07:03] LABS: Calcium 8.3 mg/dL (8.6-10.3); EGFR African American 49.2 (>60); EGFR Non-African American 40.7 (>60); Potassium 4.2 mmol/L (3.5-5.0)
[2020-11-13] MEDS: Polyethylene Glycol 3350 17 GM PACKET PO SCH (08:16)
[2020-11-13] MEDS: Carbidopa/Levodop 25/100 MG TAB PO SCH ×2 (08:16→13:50)
[2020-11-13] MEDS: Heparin 5000 UNITS/ML 1 mL VIAL SUBCUT SCH ×2 (08:16→13:50)
[2020-11-13 11:35] VITALS: BP 137/78
== END 2020-11-13 14:50 | disposition home or self-care (01) ==
LOC: ED 03:37 → SSU 03:37
PROVIDERS: ADMIT Hospitalist; ATTEND Hospitalist

== ENCOUNTER 2021-02-27 22:04 | Observation (INO) ==
[2021-02-27 22:59] LABS: ABS Eosinophils 0.2 10^3/ul (0-0.6); ABS Lymphocytes 1.4 10^3/ul (1.0-4.8); ABS Monocytes 0.9 10^3/ul (0-0.8); ABS Neutrophils 12.6 10^3/ul (1.5-7.7); Eosinophil % 1.6 %; Hematocrit 35 % (42-52); Hemoglobin 11.8 g/dL (14.0-18.0); Lymphocyte % 9.4 %; Mean Corpuscular HGB Conc 34 g/dL (31-36); Mean Corpuscular Hemoglobin 31 pg (27-31); Mean Corpuscular Volume 92 fL (80-94); Mean Platelet Volume 9.4 fL (7.4-10.4); Platelet Count 286 10^3/uL (150-450); Red Blood Count 3.78 10^6 /uL (4.18-5.48); Red Cell Distribution Width 14 % (10-15); White Blood Count 15.1 10^3/uL (3.5-10.8)
[2021-02-27] MEDS ORDERED: Lactated Ringers 1000 ml BAG 1,000 ML IV SCH (23:00)
[2021-02-27 23:18] LABS: ALT 3 U/L (7-52); AST 14 U/L (13-39); Albumin 3.6 g/dL (3.2-5.2); Albumin/Globulin Ratio 1.2 (1-3); Alkaline Phosphatase 57 U/L (35-149); Anion Gap 7 mmol/L (2-11); Blood Urea Nitrogen 40 mg/dL (6-24); C Reactive Protein < 1.00 mg/L (<8.01); CO2 Carbon Dioxide 26 mmol/L (22-32); Calcium 8.4 mg/dL (8.6-10.3); Chloride 105 mmol/L (101-111); Globulin 3.1 g/dL (2-4); Glucose 173 mg/dL (70-100); Potassium 4.5 mmol/L (3.5-5.0); Sodium 138 mmol/L (135-145); Total Protein 6.7 g/dL (6.4-8.9)
[2021-02-27] MEDS ORDERED: Lactated Ringers 1000 ml BAG IV.FLUID IV ONE (23:18)
[2021-02-27 23:19] LABS: Troponin I 0.01 ng/mL (<0.03)
[2021-02-27 23:20] LABS: Urine Appearance Clear; Urine Bilirubin Negative (Negative); Urine Blood Negative (Negative); Urine Color Yellow; Urine Glucose Negative (Negative); Urine Ketones Trace (Negative); Urine Nitrite Negative (Negative); Urine Protein 2+(100 mg/dL) (Negative); Urine Specific Gravity 1.013 (1.002-1.030); Urine Urobilinogen Negative (Negative)
[2021-02-27 23:25] LABS: Urine Bacteria Absent (Absent); Urine Red Blood Cell Trace(0-2/hpf) (Absent); Urine White Blood Cell Trace(0-5/hpf) (Absent)
[2021-02-27 23:32] LABS: TSH Ultra Thyroid Stim Horm 3.46 mcIU/mL (0.34-5.60)
[2021-02-28] MEDS ORDERED: cefTRIAXone 1 gm/50 mL NS BAG 1 GM/50 ML BAG IV ONE (00:03)
[2021-02-28 00:16] LABS: Activated Partial Thrombo Time 19.8 seconds (26.0-38.0); INR 1.09 (0.86-1.15)
[2021-02-28 00:26] LABS: Rapid COVID-19 Molecular Undetected (Undetected)
[2021-02-28] MEDS ORDERED: NS 0.9% 1000 ml BAG 1,000 ML IV SCH (02:15)
[2021-02-28 07:53] LABS: ABS Eosinophils 0.1 10^3/ul (0-0.6); ABS Lymphocytes 1.9 10^3/ul (1.0-4.8); ABS Monocytes 0.8 10^3/ul (0-0.8); ABS Neutrophils 6.9 10^3/ul (1.5-7.7); Eosinophil % 0.5 %; Hematocrit 32 % (42-52); Hemoglobin 10.8 g/dL (14.0-18.0); Lymphocyte % 19.6 %; Mean Corpuscular HGB Conc 34 g/dL (31-36); Mean Corpuscular Hemoglobin 31 pg (27-31); Mean Corpuscular Volume 91 fL (80-94); Mean Platelet Volume 9.5 fL (7.4-10.4); Platelet Count 263 10^3/uL (150-450); Red Cell Distribution Width 13 % (10-15); White Blood Count 9.8 10^3/uL (3.5-10.8)
[2021-02-28] MEDS ORDERED: Enoxaparin 40 MG/0.4 ML SYR SUBCUT SCH (08:00)
[2021-02-28 08:15] LABS: Calcium 8.3 mg/dL (8.6-10.3); Potassium 4.5 mmol/L (3.5-5.0)
[2021-02-28] MEDS: Carbidopa/Levodop 25/100 MG TAB PO SCH ×2 (08:44→13:18)
[2021-02-28 18:11] VITALS: BP 110/71
[2021-02-28] MEDS ORDERED: cefTRIAXone 1 gm/50 mL NS BAG 1 GM/50 ML BAG IVPB SCH (20:00)
[2021-02-28] MEDS ORDERED: Carbidopa/Levodop CR 50/200 TAB.CR PO SCH (21:00)
[2021-03-02 02:36] LABS: Anaplasma phagocytophilum Negative (Negative); B. miyamotoi PCR, B Negative (Negative); Babesia divergens/MO-1 Negative (Negative); Babesia ducani Negative (Negative); Ehrlichia chaffeensis Negative (Negative); Ehrlichia ewingii/canis Negative (Negative); Ehrlichia muris eauclairensis Negative (Negative)
== END 2021-02-28 18:20 | disposition home or self-care (01) ==
LOC: ED 22:04 → INTOOBSV 02-28 02:16 → MEDTELE 02-28 02:16 → SUATTDRO 02-28 02:16 → MEDTELE 02-28 05:16
PROVIDERS: ADMIT Internal Medicine; ATTEND Student in an Organized Health Care Education/Training Program